=== PATIENT | female | born 1980 | race African-American/Black ===

== ENCOUNTER 2016-09-10 00:10 | Inpatient (IN) | payer MEDICAID ==
[~2016-09-10] VITALS: Ht 160 cm; Wt 68.8 kg
[2016-09-10] VITALS (16 sets, daily range): BP systolic 90–144; BP diastolic 50–85; PULSE 74–97; RESP 15–18; TEMP 98.1–99; O2SAT 97–100
[~2016-09-10 00:10] MED LIST: FERR324T4 PO; FOLI1 PO
[2016-09-10 01:32] LABS: MEAN CORPUSCULAR HGB CONC 28.6 % (32.0-36.0)
[2016-09-10 01:54] LABS: AUTOMATED NEUTROPHIL # 3.7 TH/MM3 (1.8-7.7); BASOPHIL % 0.4 % (0.0-2.0); EOSINOPHIL # 0.5 TH/MM3 (0-0.4); EOSINOPHIL % 7.5 % (0.0-4.0); LYMPH % 32.1 % (9.0-44.0); LYMPHOCYTE # 2.4 TH/MM3 (1.0-4.8); MEAN CELL VOLUME 56.8 FL (80.0-100.0); MEAN CORPUSCULAR HEMOGLOBIN 16.3 PG (27.0-34.0); PLATELET COUNT 565 TH/MM3 (150-450); RED BLOOD COUNT 2.99 MIL/MM3 (4.00-5.30); WHITE BLOOD COUNT 7.3 TH/MM3 (4.0-11.0)
--- NOTE | 2016-09-10 01:56 | PD ---
HPI Chief Complaint: General Weakness Time Seen by Provider: 01:13 Travel History International Travel<30 days: No Contact w/Intl Traveler<30days: No Traveled to known affect area: No History of Present Illness HPI 36-year-old female complains of generalized malaise and weakness and lightheadedness. Patient states that the symptoms started 2 days ago and got worse tonight. Patient has history of recurrent anemia from menorrhagia and uterine fibroids. Patient was referred to [facility] NURSE however has not had surgery done for vaginal bleeding problem. Patient was admitted in the past for blood transfusion secondary to anemia. The last admission for transfusion was 2 months ago at [facility]. [facility] Past Medical History Anemia: Yes Cancer: No Cardiovascular Problems: No Diminished Hearing: No Endocrine: No Genitourinary: No Immune Disorder: No Musculoskeletal: No Neurologic: No Psychiatric: No Reproductive: Yes (Menorrhagia) Respiratory: No Immunizations Current: Yes Tubal Ligation: Yes Past Surgical History Section: Yes (X3) Family History Family Hypercholesterolemia: Yes Social History Alcohol Use: No Tobacco Use: Yes (5 cigs a day) Substance Use: Yes (Marijuana) Allergies-Medications (Allergen,Severity, Reaction): Coded Allergies: Tramadol (Verified Allergy, Severe, Nausea/Vomiting, 09/10/16) Reported Meds & Prescriptions Reported Meds & Active Scripts Active Reported Ferrous Sulfate 325 Mg Tab 325 Mg PO DAILY Medroxyprogesterone Acetate 10 Mg Tab 10 Mg PO DAILY Start day 21 Review of Systems General / Constitutional: No: Fever Eyes: No: Visual changes HENT: No: Headaches Cardiovascular: No: Chest Pain or Discomfort Respiratory: No: Shortness of Breath Gastrointestinal: No: Abdominal Pain Genitourinary: Positive: Vaginal Bleeding, No: Dysuria Musculoskeletal: No: Pain Skin: No Rash Neurologic: No: Weakness Psychiatric: No: Depression Endocrine: No: Polydipsia Hematologic/Lymphatic: No: Easy Bruising Physical Exam Narrative GENERAL: Well-nourished, well-developed patient. SKIN: Warm and dry. HEAD: Normocephalic. EYES: No scleral icterus. No injection or drainage. NECK: Supple, trachea midline. No JVD or lymphadenopathy. CARDIOVASCULAR: Regular rate and rhythm without murmurs, gallops, or rubs. RESPIRATORY: Breath sounds equal bilaterally. No accessory muscle use. GASTROINTESTINAL: Abdomen soft, nondistended. Patient has mild tenderness to palpation lower abdomen. No rebound tenderness. MUSCULOSKELETAL: No cyanosis, or edema. BACK: Nontender without obvious deformity. No CVA tenderness. Neurologic exam normal. Data Data Last Documented VS Vital Signs Date Time Temp Pulse Resp B/P Pulse Ox O2 Delivery O2 Flow Rate FiO2 09/10/16 02:05 78 16 90/50 100 Room Air 09/10/16 00:11 98.1 Orders Complete Blood Count With Diff (09/10/16 01:30) Comprehensive Metabolic Panel (09/10/16 01:30) Prothrombin Time / Inr (Pt) (09/10/16 01:30) Act Partial Throm Time (Ptt) (09/10/16 01:30) Chest, Single Ap (09/10/16 01:30) Iv Access Insert/Monitor (09/10/16 01:30) Ecg Monitoring (09/10/16 01:30) Oximetry (09/10/16 01:30) Type And Screen (09/10/16 01:30) Ed Urine Pregnancytest Poc (09/10/16 01:30) Red Blood Cells (Rbc) (09/10/16 02:09) Blood Product Administration .UPON TRANSFUSION (09/10/16 02:09) Sodium Chlor 0.9% 250 Ml Inj (Ns 250 Ml (09/10/16 02:15) Furosemide Inj (Lasix Inj) (09/10/16 02:15) Labs Laboratory Tests Test 09/10/16 01:40 White Blood Count 7.3 TH/MM3 Red Blood Count 2.99 MIL/MM3 Hemoglobin 4.9 GM/DL Hematocrit 17.0 % Mean Corpuscular Volume 56.8 FL Mean Corpuscular Hemoglobin 16.3 PG Mean Corpuscular Hemoglobin 28.6 % Concent Red Cell Distribution Width 21.0 % Platelet Count 565 TH/MM3 Mean Platelet Volume 6.8 FL Neutrophils (%) (Auto) 50.0 % Lymphocytes (%) (Auto) 32.1 % Monocytes (%) (Auto) 10.0 % Eosinophils (%) (Auto) 7.5 % Basophils (%) (Auto) 0.4 % Neutrophils # (Auto) 3.7 TH/MM3 Lymphocytes # (Auto) 2.4 TH/MM3 Monocytes # (Auto) 0.7 TH/MM3 Eosinophils # (Auto) 0.5 TH/MM3 Basophils # (Auto) 0.0 TH/MM3 CBC Comment AUTO DIFF Differential Comment AUTO DIFF CONFIRMED Target Cells 1+ Ovalocytes 1+ Prothrombin Time 11.6 SEC Prothromb Time International 1.0 RATIO Ratio Activated Partial 24.0 SEC Thromboplast Time Sodium Level 139 MEQ/L Potassium Level 3.9 MEQ/L Chloride Level 106 MEQ/L Carbon Dioxide Level 25.5 MEQ/L Anion Gap 8 MEQ/L Blood Urea Nitrogen 9 MG/DL Creatinine 0.62 MG/DL Estimat Glomerular Filtration 133 ML/MIN Rate Random Glucose 96 MG/DL Calcium Level 8.3 MG/DL Total Bilirubin 0.2 MG/DL Aspartate Amino Transf 10 U/L (AST/SGOT) Alanine Aminotransferase 8 U/L (ALT/SGPT) Alkaline Phosphatase 61 U/L Total Protein 6.9 GM/DL Albumin 2.8 GM/DL [facility] Medical Decision Making Medical Screen Exam Complete: Yes Emergency Medical Condition: Yes Interpretation(s) 3:37 AM. Last Impressions Chest X-Ray 09/10/16 0130 Signed Impressions: Service Date/Time: August 01:57 - CONCLUSION: No acute disease. Sanjay Guerra MD 3:37 AM. CBC WBC 7.3. Hemoglobin 4.9. Hematocrit 17.0. CMP within normal limit. Calcium 8.3. Differential Diagnosis Differential diagnoses include anemia, viral syndrome, electrolyte imbalance, dehydration. Narrative Course 36-year-old female with lightheadedness, generalized malaise and weakness. History of anemia from menorrhagia and uterine fibroid. Patient needed transfusions in the past. Type and cross 4 units of blood and transfuse when ready. Diagnosis Primary Impression: Anemia Qualified Code: D50.0 - Iron deficiency anemia due to chronic blood loss Additional Impressions: Menorrhagia Qualified Code: N92.1 - Menorrhagia with irregular cycle Uterine fibroid Qualified Code: D25.9 - Uterine leiomyoma, unspecified location Admitting Information Admitting Physician Requests: Admit Holland Salazar MD Sep 10, 2016 01:56 Holland Salazar MD Sep 10, 2016 01:56
[2016-09-10 01:58] LABS: HEMO FLAGS AUTO DIFF
[2016-09-10 02:02] LABS: PROTHROMBIN TIME - PATIENT 11.6 SEC (9.8-11.6)
--- NOTE | 2016-09-10 02:06 | RADRPT ---
EXAM DATE/TIME: 09/10/2016 01:57 [facility] COMPARISON: CHEST SINGLE AP, September 20, 2015, 23:54. INDICATIONS : Shortness of breath. MEDICAL HISTORY : None. SURGICAL HISTORY : None. ENCOUNTER: Initial ACUITY: 1 day PAIN SCORE: 0/10 LOCATION: Bilateral chest FINDINGS: A single view of the chest demonstrates the lungs to be symmetrically aerated without evidence of mas s, infiltrate or effusion. The cardiomediastinal contours are unremarkable. Osseous structures are intact. CONCLUSION: No acute disease. Sanjay Guerra MD on September 10, 2016 at 2:04 Board Certified Radiologist. This report was verified electronically.
[2016-09-10] MEDS ORDERED: MEDR10TA7 PO (02:09)
[2016-09-10] MEDS ORDERED: FERR325T PO (02:09)
[2016-09-10 02:12] LABS: ALT (GPT) 8 U/L (10-53); ANION GAP 8 MEQ/L (5-15); AST (GOT) 10 U/L (15-37); BICARBONATE 25.5 MEQ/L (21.0-32.0); BLOOD UREA NITROGEN 9 MG/DL (7-18); CHLORIDE 106 MEQ/L (98-107); GLOMERULAR FILTRATION RATE 133 ML/MIN (>89); POTASSIUM 3.9 MEQ/L (3.5-5.1); SODIUM (NA) 139 MEQ/L (136-145)
[2016-09-10 02:14] LABS: ALKALINE PHOSPHATASE 61 U/L (45-117); TOTAL BILIRUBIN ADULT 0.2 MG/DL (0.2-1.0)
[2016-09-10] MEDS ORDERED: SODIUM CHLOR 0.9% 250 ML INJ 250 ML IV ONE (02:15)
[2016-09-10] MEDS ORDERED: FUROSEMIDE 20 MG/2 ML VIAL IV PUSH ONE ×2 (02:15→10:45)
[2016-09-10 02:26] LABS: OVALOCYTES 1+ (NORMAL); SCAN/DIFF AUTO DIFF CONFIRMED; TARGET CELLS 1+ (NORMAL)
[2016-09-10] MEDS ORDERED: SODIUM CHLORIDE 0.9% FLUSH 10 ML FLUSH IV FLUSH PRN (04:00)
[2016-09-10] MEDS ORDERED: NALOXONE HCL 0.4 MG/ML AMP IV PRN (04:00)
[2016-09-10] MEDS: SODIUM CHLORIDE 0.9% FLUSH 10 ML FLUSH IV FLUSH SCH ×2 (09:00→19:58)
--- NOTE | 2016-09-10 10:45 | HHI.HP ---
[facility] No Primary Care Physician Admission Diagnosis anemia. Menorrhagia. Uterine fibroid. Diagnoses: Chief Complaint: Dizziness, fatigue Travel History International Travel<30 Days: No Contact w/Intl Traveler <30 Da: No Traveled to Known Affected Are: No History of Present Illness Physical therapy 6-year-old female past medical history significant for recurrent anemia from menorrhagia and uterine fibroids. She presents with generalized malaise, fatigue and weakness as well as lightheadedness which started approximately 2 days ago and got worst last night. The patient states that she has had menorrhagia for the past year, she was started on control pills by an outside [facility] in [facility]. Initially she would have intermittent menorrhagia, however per the past month she has had continues vaginal bleed with clots. The patient states that the DANCE CRITIC doctor that was seen here in [facility] and was going to perform surgery finally did not because she did not take her insurance. Patient has been admitted in the past for blood transfusion secondary to anemia, last admission for packed red blood cells transfusions was 2 months ago at the floor the hospital. The patient otherwise denies chest pain, shortness of breath, fevers, chills. The patient has being evaluated emergency department found to have a hemoglobin of 4.9 and so far has been confused 2 units of blood for blood cells from 4 that have been ordered. Review of Systems As per history of present illness, other systems reviewed by me and negative Past Family Social History Past Medical History 1. Uterine fibroids. 2. Posttraumatic anemia. 3. Menometrorrhagia. Past Surgical History 1. C-sections 3. Reported Medications Ferrous Sulfate 325 Mg Tab 325 Mg PO DAILY Medroxyprogesterone Acetate 10 Mg Tab 10 Mg PO DAILY Start day 21 Allergies: Coded Allergies: Tramadol (Verified Allergy, Severe, Nausea/Vomiting, 09/10/16) Active Ordered Medications Current Medications Medications (Trade) Dose Ordered Sig/Bina Route Start Time Stop Time Status Last Admin (NS 250 ml Inj) 250 ml @ 15 mls/hr ONCE ONCE IV 09/10/16 02:15 09/10/16 18:54 09/10/16 06:23 (NS Flush) 2 ml UNSCH PRN IV FLUSH 09/10/16 04:00 (NS Flush) 2 ml BID IV FLUSH 09/10/16 09:00 (Narcan Inj) 0.4 mg UNSCH PRN IV 09/10/16 04:00 Family History Other has hypertension. There is no family history of diabetes or early CAD. Social History Patient smokes approximately 1 pack every 3 days. Denies alcohol intake. Denies illicit drug use currently. Patient states she used to smoke marijuana but has not done it in the last 3 months. Physical Exam Vital Signs Vital Signs Date Time Temp Pulse Resp B/P Pulse Ox O2 Delivery O2 Flow Rate FiO2 09/10/16 10:32 98.5 79 15 123/63 100 Room Air 09/10/16 08:49 98.5 76 16 110/66 100 09/10/16 08:49 98.5 76 16 110/66 100 Room Air 09/10/16 08:31 98.3 80 16 104/65 100 09/10/16 07:23 98.4 79 16 108/63 99 Room Air 09/10/16 07:23 16 99 Room Air 09/10/16 06:30 98.7 80 16 101/59 99 Room Air 09/10/16 06:17 84 16 106/63 100 Room Air 09/10/16 06:15 98.7 84 16 106/63 100 Room Air 09/10/16 02:05 78 16 90/50 100 Room Air 09/10/16 02:05 18 09/10/16 02:05 Room Air 09/10/16 00:11 98.1 97 15 144/85 100 Room Air Physical Exam GENERAL: This is a well-nourished, well-developed patient, in no apparent distress. SKIN: No rashes, ecchymoses or lesions. Cool and dry. HEAD: Atraumatic. Normocephalic. No temporal or scalp tenderness. EYES: Pupils equal round and reactive. Extraocular motions intact. No scleral icterus. No injection or drainage. Pale conjunctiva. ENT: Nose without bleeding, purulent drainage or septal hematoma. Throat without erythema, tonsillar hypertrophy or exudate. Uvula midline. Airway patent. NECK: Trachea midline. No JVD or lymphadenopathy. Supple, nontender, no meningeal signs. CARDIOVASCULAR: Regular rate and rhythm without murmurs, gallops, or rubs. RESPIRATORY: Clear to auscultation. Breath sounds equal bilaterally. No wheezes , rales, or rhonchi. GASTROINTESTINAL: Abdomen soft, non-tender, nondistended. No hepato-splenomegaly , or palpable masses. No guarding. MUSCULOSKELETAL: Extremities without clubbing, cyanosis, or edema. No joint tenderness, effusion, or edema noted. No calf tenderness. Negative Homans sign bilaterally. NEUROLOGICAL: Awake and alert. Cranial nerves II through XII intact. Motor and sensory grossly within normal limits. Five out of 5 muscle strength in all muscle groups. Normal speech. Laboratory Laboratory Tests Test 09/10/16 09/10/16 01:40 02:09 White Blood Count 7.3 Red Blood Count 2.99 Hemoglobin 4.9 Hematocrit 17.0 Mean Corpuscular Volume 56.8 Mean Corpuscular Hemoglobin 16.3 Mean Corpuscular Hemoglobin 28.6 Concent Red Cell Distribution Width 21.0 Platelet Count 565 Mean Platelet Volume 6.8 Neutrophils (%) (Auto) 50.0 Lymphocytes (%) (Auto) 32.1 Monocytes (%) (Auto) 10.0 Eosinophils (%) (Auto) 7.5 Basophils (%) (Auto) 0.4 Neutrophils # (Auto) 3.7 Lymphocytes # (Auto) 2.4 Monocytes # (Auto) 0.7 Eosinophils # (Auto) 0.5 Basophils # (Auto) 0.0 CBC Comment AUTO DIFF Differential Comment AUTO DIFF CONFIRMED Target Cells 1+ Ovalocytes 1+ Prothrombin Time 11.6 Prothromb Time International 1.0 Ratio Activated Partial 24.0 Thromboplast Time Sodium Level 139 Potassium Level 3.9 Chloride Level 106 Carbon Dioxide Level 25.5 Anion Gap 8 Blood Urea Nitrogen 9 Creatinine 0.62 Estimat Glomerular Filtration 133 Rate Random Glucose 96 Calcium Level 8.3 Total Bilirubin 0.2 Aspartate Amino Transf 10 (AST/SGOT) Alanine Aminotransferase 8 (ALT/SGPT) Alkaline Phosphatase 61 Total Protein 6.9 Albumin 2.8 Blood Type A POSITIVE Antibody Screen POSITIVE Crossmatch Leukocyte-Reduced Red Blood Cells Blood Bank Comment Result Diagram: 09/10/1613909/10/16139 Imaging Last Impressions Chest X-Ray 09/10/16129 Signed Impressions: Service Date/Time: August 01:57 - CONCLUSION: No acute disease. Sanjay Gurera MD Reviewed by me Assessment and Plan Problem List: (1) Severe anemia ICD Code: D64.9 Status: Acute Plan: 36-year-old female with past medical history of uterine fibroids, menometrorrhagia presents to [facility] complaining of fatigue, dizziness exertion, weakness and lightheadedness and found to have a hemoglobin of 4.9. Admit the patient to the medical floor. Transfuse a total of 4 units of packed blood cells. Monitor H&H post transfusional and every 6 hours after that. Transfuse for hemoglobin less than 7 or symptomatically anemia. Goal hemoglobin more than 9. (2) Uterine fibroid ICD Code: D25.9 Status: Acute Plan: [facility] consult. The patient most likely will need a total hysterectomy. The patient has had a CT scan and this institution which showed a 5.72.7 cm right adnexal mass, probably a mildly complex ovarian cyst. Diffusely enlarged uterus with some calcifications characteristic of uterine fibroids. I will her pelvic ultrasound to better assess the right adnexal mass. (3) Menometrorrhagia ICD Code: N92.1 Status: Acute Plan: As above. Assessment and Plan GI prophylaxis: PPI DVT prophylaxis: SCDs. No chemotherapy prophylaxis given active GI bleed. Code Status Full code Discussed Condition With Patient. Physician Certification 2 Midnight Certification Type: Admission for Inpatient Services Order for Inpatient Services The services are ordered in accordance with Medicare regulations or non- Medicare payer requirements, as applicable. In the case of services not specified as inpatient-only, they are appropriately provided as inpatient services in accordance with the 2-midnight benchmark. Estimated LOS (days): 2 days is the estimated time the patient will need to remain in the hospital, assuming treatment plan goals are met and no additional complications. Post-Hospital Plan: Not yet determined Problem Qualifiers (1) Uterine fibroid: Qualified Code: D25.9 - Uterine leiomyoma, unspecified location Alex Branch MD Sep 10, 2016 10:45
[2016-09-10] MEDS: PANTOPRAZOLE SOD 40 MG DELAYED RELEASE TAB PO SCH (11:20)
--- NOTE | 2016-09-10 14:12 | PD.CONS ---
HPI Chief Complaint Heavy bleeding and fatigue Date Seen: Sep 10, 2016 Travel History International Travel<30 Days: No Contact w/Intl Traveler<30Days: No Known Affected Area: No History of Present Illness HPI with history of menorrhagia and uterine fibroids presented to ED with c/o heavy bleeding and fatigue. Patient reports irregular bleeding beginning last month. Reports occasional clots- quarter size. Patient last seen by [facility] in 2015. Reports history of previous transfusion. Reports taking OCPs last year, then planned hysterectomy. Procedure cancelled due to insurance reasons per patient. Reports not following up after that cancellation. She reports another visit to an outside ED secondary to similar complaints and was prescribed Provera 10mg daily. She denies urinary or bowel problems. Para: 3 : 3 History Past Medical History Narrative Medical Anemia Obstetric History Obstetric History FT C/S x 3 LBB 2009, BBB 7# 9oz Past Surgical History Narrative Surgical C/S x 3, BTL Family History Narrative Family History HTN. Denies history of [facility] cancers or diseases. No history of breast CA. Social History Alcohol Use: No Tobacco Use: Yes (1ppd over 3 days) Substance Abuse: No Allergies-Medications (Allergen,Severity, Reaction): Coded Allergies: Tramadol (Verified Allergy, Severe, Nausea/Vomiting, 09/10/16) Home Meds Reported Medications Ferrous Sulfate 325 Mg [id number] Mg PO DAILY #30 TAB Ref 0 09/10/16 Medroxyprogesterone Acetate 10 Mg Tab10 Mg PO DAILY #5 TAB Ref 0 Start day 21 09/10/16 Discontinued Reported Medications Folic Acid (Folate 1 Mg Tab)1 Mg Tab1 Mg PO DAILY 05/10/15 Ferrous Sulfate 325 Mg [id number] Mg PO TID 05/10/15 Physical Exam Vital Signs Date Time Temp Pulse Resp B/P Pulse Ox O2 Delivery O2 Flow Rate FiO2 09/10/16 12:00 98.2 80 16 109/70 100 Room Air 09/10/16 11:40 98.4 80 16 111/68 100 Room Air 09/10/16 10:32 98.5 79 15 123/63 100 Room Air 09/10/16 08:49 98.5 76 16 110/66 100 09/10/16 08:49 98.5 76 16 110/66 100 Room Air 09/10/16 08:31 98.3 80 16 104/65 100 09/10/16 07:23 98.4 79 16 108/63 99 Room Air 09/10/16 07:23 16 99 Room Air 09/10/16 06:30 98.7 80 16 101/59 99 Room Air 09/10/16 06:17 84 16 106/63 100 Room Air 09/10/16 06:15 98.7 84 16 106/63 100 Room Air 09/10/16 02:05 78 16 90/50 100 Room Air 09/10/16 02:05 18 09/10/16 02:05 Room Air 09/10/16 00:11 98.1 97 15 144/85 100 Room Air Narrative GENERAL: Well-nourished, well-developed patient. SKIN: Warm and dry. HEAD: Normocephalic and atraumatic. EYES: No scleral icterus. No injection or drainage. ENT: No nasal drainage noted. Mucous membranes pink. Airway patent. NECK: Supple, trachea midline. No JVD. CARDIOVASCULAR: Regular rate and rhythm without murmurs, gallops, or rubs. RESPIRATORY: Breath sounds equal bilaterally. No accessory muscle use. BREASTS: Bilateral exam showed no masses , no retractions, no nipple discharge. ABDOMEN/GI: Abdomen soft, non-tender, bowel sounds present, no rebound, no guarding Gravid to [-] weeks size Fundal Height: [fundus palpated to 14-16 week size] GENITOURINARY: External Genitalia: intact and normal in appearance BUS glands: [-] Cervix: [scant blood from os, blood in vault, no clots] Dilatation: [closed] Effacement: [thick] Station: [-] Presentation: [-] Membranes: [intact or ruptured] Uterine Contractions: [-] FHT's: Category: [-] Baseline: [-] Reactive: [-] Variability: [-] Decels: [-] EXTREMITIES: No cyanosis or edema. BACK: Nontender without obvious deformity. No CVA tenderness. NEUROLOGICAL: Awake and alert. Motor and sensory grossly within normal limits. Five out of 5 muscle strength in all muscle groups. Normal speech. Data Data Orders Complete Blood Count With Diff (09/10/16 01:30) Comprehensive Metabolic Panel (09/10/16 01:30) Prothrombin Time / Inr (Pt) (09/10/16 01:30) Act Partial Throm Time (Ptt) (09/10/16 01:30) Chest, Single Ap (09/10/16 01:30) Iv Access Insert/Monitor (09/10/16 01:30) Ecg Monitoring (09/10/16 01:30) Oximetry (09/10/16 01:30) Type And Screen (09/10/16 01:30) Ed Urine Pregnancytest Poc (09/10/16 01:30) Red Blood Cells (Rbc) (09/10/16 02:09) Blood Product Administration .UPON TRANSFUSION (09/10/16 02:09) Sodium Chlor 0.9% 250 Ml Inj (Ns 250 Ml (09/10/16 02:15) Furosemide Inj (Lasix Inj) (09/10/16 02:15) Admit To Inpatient (09/10/16 ) Vital Signs (Adult) Q4H (09/10/16 03:50) Activity Oob Ad Ro (09/10/16 03:50) Cell Preparer / Telemetry .CONTINUOUS (09/10/16 03:50) Sodium Chloride 0.9% Flush (Ns Flush) (09/10/16 04:00) Sodium Chloride 0.9% Flush (Ns Flush) (09/10/16 09:00) Case Management Consult (09/10/16 03:50) Scd Bilateral/Knee High UMESH.BID (09/10/16 03:50) Naloxone Inj (Narcan Inj) (09/10/16 04:00) Inpatient Certification (09/10/16 ) Consult Gynecology (09/10/16 ) Admit Order (Ed Use Only) (09/10/16 04:25) Physician Name Changes (09/10/16 ) Furosemide Inj (Lasix Inj) (09/10/16 10:45) Us Pelvis Comp [facility] Compliance/Non-Preg (09/10/16 ) Pantoprazole (Protonix) (09/10/16 10:45) Diet Regular Basic (09/10/16 Lunch) Hemoglobin (Hgb) (09/10/16 16:00) Hemoglobin (Hgb) (09/11/16 16:00) (Hub Use Only)Inp Phy Cons/Ref (09/10/16 ) Labs Laboratory Tests Test 09/10/16 09/10/16 01:40 02:09 White Blood Count 7.3 Red Blood Count 2.99 Hemoglobin 4.9 Hematocrit 17.0 Mean Corpuscular Volume 56.8 Mean Corpuscular Hemoglobin 16.3 Mean Corpuscular Hemoglobin 28.6 Concent Red Cell Distribution Width 21.0 Platelet Count 565 Mean Platelet Volume 6.8 Neutrophils (%) (Auto) 50.0 Lymphocytes (%) (Auto) 32.1 Monocytes (%) (Auto) 10.0 Eosinophils (%) (Auto) 7.5 Basophils (%) (Auto) 0.4 Neutrophils # (Auto) 3.7 Lymphocytes # (Auto) 2.4 Monocytes # (Auto) 0.7 Eosinophils # (Auto) 0.5 Basophils # (Auto) 0.0 CBC Comment AUTO DIFF Differential Comment AUTO DIFF CONFIRMED Target Cells 1+ Ovalocytes 1+ Prothrombin Time 11.6 Prothromb Time International 1.0 Ratio Activated Partial 24.0 Thromboplast Time Sodium Level 139 Potassium Level 3.9 Chloride Level 106 Carbon Dioxide Level 25.5 Anion Gap 8 Blood Urea Nitrogen 9 Creatinine 0.62 Estimat Glomerular Filtration 133 Rate Random Glucose 96 Calcium Level 8.3 Total Bilirubin 0.2 Aspartate Amino Transf 10 (AST/SGOT) Alanine Aminotransferase 8 (ALT/SGPT) Alkaline Phosphatase 61 Total Protein 6.9 Albumin 2.8 Blood Type A POSITIVE Antibody Screen POSITIVE Crossmatch Leukocyte-Reduced Red Blood Cells Blood Bank Comment MDM Interpretation(s) 36 yo with history of menorrhagia, anemia, and fibroids. Plan Continue transfusion. US completed, results pending, will f/u. Consider Premarin 25mg IV. Importance of f/u d/w patient. October f/u with Dr. Sol as outpatient for [facility] f/ u. All questions answered. Admitting diagnosis: anemia. Menorrhagia. Uterine fibroid. Renae Aguilar MD Sep 10, 2016 14:12
--- NOTE | 2016-09-10 15:59 | RADRPT ---
EXAM DATE/TIME: 09/10/2016 11:40 [facility] COMPARISON: CT ABDOMEN & PELVIS W/O CONTRAST, September 06, 2015, 20:48. INDICATIONS : Vaginal bleeding. MEDICAL HISTORY : Menorrhagia. Anemia. Blood transfusions. SURGICAL HISTORY : section. Tubal ligation. ENCOUNTER: Initial ACUITY: 1 month PAIN SCORE: 6/10 LOCATION: Bilateral pelvis MEASUREMENTS: UTERUS: 16.5 x 12.7 x 10.1 cm ENDOMETRIAL STRIPE: 15 mm RIGHT OVARY: 4.2 x 1.8 x 1.9 cm LEFT OVARY: 3.7 x 3.5 x 1.6 cm FINDINGS: UTERUS: Uterus is markedly enlarged with a height of 16.5 cm. Multiple mass lesions are identified, the large st measuring 7.3 x 6.9 x 6.3 cm. Findings are characteristic of a fibroid uterus. Endometrium is some what thickened at 15 mm with complex endometrial fluid. Cystic area in the cervical region measures 4 .0 x 4.4 x 1.9 cm and appears to decompress in the post void images RIGHT OVARY: Ovary contains no mass or significant cystic lesion. LEFT OVARY: Ovary contains no mass or significant cystic lesion. MISCELLANEOUS: No free fluid. CONCLUSION: 1. Fibroid uterus. 2. Right para-midline cystic area measuring 4.0 x 4.4 x 1.9 cm in the vaginal/cervical region appears to decompress on the postvoid images and therefore, may represent a prominent bladder diverticulum. Post contrast CT images may be useful for further characterization if clinically warranted. Buster Reyna MD on September 10, 2016 at 15:42 Board Certified Radiologist. This report was verified electronically.
[2016-09-10] MEDS: ACETAMINOPHEN 325 MG TAB PO PRN (23:23)
[2016-09-11] VITALS (7 sets, daily range): BP systolic 112–153; BP diastolic 59–89; PULSE 67–79; RESP 16–18; TEMP 98.3–99; O2SAT 97–100
--- NOTE | 2016-09-11 00:17 | RADRPT ---
EXAM DATE/TIME: 09/10/2016 21:05 [facility] COMPARISON: No previous studies available for comparison. INDICATIONS : Left leg pain. MEDICAL HISTORY : Menorrhagia. Occasional substance use. Anemia. SURGICAL HISTORY : Tubal ligation. section. Blood transfusions. ENCOUNTER: Initial ACUITY: 2 day PAIN SCORE: 8/10 LOCATION: Left leg. TECHNIQUE: Venous ultrasound of the leg was performed from the inguinal ligament to the proximal calf. Real-christiana e, color Doppler and spectral tracing, compression and augmentation techniques were used. FINDINGS: There is normal compressibility of the deep venous system from the inguinal region to the proximal ca lf. No echogenic clot is seen in the lumen of the common femoral, femoral, popliteal, and posterior tibial veins. There is a normal response of the venous system to proximal and distal augmentation an d respiration. CONCLUSION: Normal examination. Misael Allen Jr., MD on September 11, 2016 at 0:15 Board Certified Radiologist. This report was verified electronically.
[2016-09-11] MEDS: PANTOPRAZOLE SOD 40 MG DELAYED RELEASE TAB PO SCH (09:41)
[2016-09-11] MEDS: SODIUM CHLORIDE 0.9% FLUSH 10 ML FLUSH IV FLUSH SCH ×2 (09:42→20:37)
[2016-09-11 10:55] LABS: AUTOMATED NEUTROPHIL # 4.5 TH/MM3 (1.8-7.7); BASOPHIL # 0.1 TH/MM3 (0-0.2); BASOPHIL % 0.7 % (0.0-2.0); EOSINOPHIL # 0.6 TH/MM3 (0-0.4); EOSINOPHIL % 7.4 % (0.0-4.0); HEMATOCRIT 30.4 % (35.0-46.0); LYMPH % 24.2 % (9.0-44.0); LYMPHOCYTE # 1.9 TH/MM3 (1.0-4.8); MEAN CELL VOLUME 67.4 FL (80.0-100.0); MEAN CORPUSCULAR HEMOGLOBIN 21.8 PG (27.0-34.0); MEAN CORPUSCULAR HGB CONC 32.4 % (32.0-36.0); MONO % 9.9 % (0.0-8.0); NEUT % 57.8 % (16.0-70.0); PLATELET COUNT 460 TH/MM3 (150-450); RED BLOOD COUNT 4.52 MIL/MM3 (4.00-5.30); RED CELL DISTRIBUTION WIDTH 30.7 % (11.6-17.2); WHITE BLOOD COUNT 7.7 TH/MM3 (4.0-11.0)
[2016-09-11 10:57] LABS: HEMO FLAGS AUTO DIFF
[2016-09-11 11:08] LABS: ALT (GPT) 10 U/L (10-53); ANION GAP 6 MEQ/L (5-15); AST (GOT) 13 U/L (15-37); BICARBONATE 27.9 MEQ/L (21.0-32.0); BLOOD UREA NITROGEN 9 MG/DL (7-18); CHLORIDE 104 MEQ/L (98-107); GLOMERULAR FILTRATION RATE 141 ML/MIN (>89); POTASSIUM 3.7 MEQ/L (3.5-5.1); SODIUM (NA) 138 MEQ/L (136-145)
[2016-09-11 11:10] LABS: ALKALINE PHOSPHATASE 64 U/L (45-117); TOTAL BILIRUBIN ADULT 0.5 MG/DL (0.2-1.0)
[2016-09-11 11:50] LABS: SCAN/DIFF AUTO DIFF CONFIRMED
[2016-09-11] MEDS ORDERED: IOHEXOL 350 MG/ML 10 ML VIAL (for RAD DIAG) IV ONE (16:11)
[2016-09-11] MEDS: ACETAMINOPHEN 325 MG TAB PO PRN (17:54)
--- NOTE | 2016-09-11 18:09 | RADRPT ---
EXAM DATE/TIME: 09/11/2016 15:54 [place] COMPARISON: US PELVIS - COMPLETE (HAND OUTSIDE CUTTER,NON-PREG), September 10, 2016, 11:40. INDICATIONS : Evaluate cystic area in bladder. IV CONTRAST: 75 cc Omnipaque 350 (iohexol) IV ORAL CONTRAST: No oral contrast ingested. RADIATION DOSE: 17.37 CTDIvol (mGy) MEDICAL HISTORY : Anemia. SURGICAL HISTORY : Tubal ligation. section. ENCOUNTER: Subsequent ACUITY: 1 day PAIN SCALE: 2/10 LOCATION: Bilateral lower quadrant TECHNIQUE: Volumetric scanning of the pelvis was performed. Using automated exposure control and adjustment of t he mA and/or kV according to patient size, radiation dose was kept as low as reasonably achievable to obtain optimal diagnostic quality images. FINDINGS: BOWEL/MESENTERY: The visualized small and large bowel demonstrate no acute abnormality. There is no free fluid. BLADDER: The cystic areas identified near the cervix/vagina on the previous ultrasound are actually diverticul a off of the urinary bladder. Urinary bladder is markedly compressed by the fibroid uterus. RETROPERITONEUM: There is no aneurysm or lymphadenopathy. REPRODUCTIVE: Markedly enlarged, fibroid uterus. INGUINAL: There is no lymphadenopathy or hernia. MUSCULOSKELETAL: Within normal limits for patient age. CONCLUSION: 1. Markedly enlarged fibroid uterus. 2. Delayed images confirm that the transient cystic structures down by the vagina/cervix are either w ings or diverticula off the urinary bladder. The bladder itself is markedly compressed by the enlarge d uterus Buster Reyna MD on September 11, 2016 at 17:59 Board Certified Radiologist. This report was verified electronically.
[2016-09-11] MEDS ORDERED: KETOROLAC TROMETHAMINE 30 MG/ML (IVP) VIAL IV PUSH ONE (19:45)
--- NOTE | 2016-09-11 21:54 | HHI.PR ---
Subjective Remarks Patient seen earlier at 10:15 AM. Patient states that she feels better. Patient states she is still bleeding however slightly better than previous days. Hemoglobin 8.5. Denies chest pain or shortness of breath Stable vital signs Objective Vitals Vital Signs Date Time Temp Pulse Resp B/P Pulse Ox O2 Delivery O2 Flow Rate FiO2 09/11/16 20:12 98.4 73 16 120/62 99 09/11/16 16:00 98.8 79 18 141/89 97 09/11/16 12:00 99.0 75 18 153/82 100 09/11/16 08:00 98.5 71 18 123/60 100 09/11/16 04:05 98.3 67 16 121/63 99 09/11/16 00:00 98.9 77 16 112/59 100 I/O 09/10/16 09/10/16 09/10/16 09/11/16 09/11/16 09/11/16 07:00 15:00 23:00 07:00 15:00 23:00 Intake Total 825 ml 4803 ml 480 ml 480 ml Balance 825 ml 4803 ml 480 ml 480 ml Intake Oral 4803 ml 480 ml 480 ml Packed Cells 825 ml # Voids 4 4 2 # Bowel Movements 1 0 0 Result Diagram: 09/11/16 1614 09/11/16 1033 Imaging Last Impressions Pelvis CT 09/11/16 0000 Signed Impressions: Service Date/Time: Sunday, September 11, 2016 15:54 - CONCLUSION: 1. Markedly enlarged fibroid uterus. 2. Delayed images confirm that the transient cystic structures down by the vagina/cervix are either wings or diverticula off the urinary bladder. The bladder itself is markedly compressed by the enlarged uterus Buster Reyna MD Chest X-Ray 09/10/16 0130 Signed Impressions: Service Date/Time: August 01:57 - CONCLUSION: No acute disease. Sanjay Guerra MD Pelvis Ultrasound 09/10/16 0000 Signed Impressions: Service Date/Time: August 11:40 - CONCLUSION: 1. Fibroid uterus. 2. Right para-midline cystic area measuring 4.0 x 4.4 x 1.9 cm in the vaginal/cervical region appears to decompress on the postvoid images and therefore, may represent a prominent bladder diverticulum. Post contrast CT images may be useful for further characterization if clinically warranted. Buster Reyna MD Lower Extremity Ultrasound 09/10/16 0000 Signed Impressions: Service Date/Time: August 21:05 - CONCLUSION: Normal examination. Misael Allen Jr., MD Objective Remarks GENERAL: This is a well-nourished, well-developed patient, in no apparent distress. SKIN: No rashes, ecchymoses or lesions. Cool and dry. HEAD: Atraumatic. Normocephalic. No temporal or scalp tenderness. EYES: Pupils equal round and reactive. Extraocular motions intact. No scleral icterus. No injection or drainage. Pale conjunctiva. ENT: Nose without bleeding, purulent drainage or septal hematoma. Throat without erythema, tonsillar hypertrophy or exudate. Uvula midline. Airway patent. NECK: Trachea midline. No JVD or lymphadenopathy. Supple, nontender, no meningeal signs. CARDIOVASCULAR: Regular rate and rhythm without murmurs, gallops, or rubs. RESPIRATORY: Clear to auscultation. Breath sounds equal bilaterally. No wheezes , rales, or rhonchi. GASTROINTESTINAL: Abdomen soft, non-tender, nondistended. No hepato-splenomegaly , or palpable masses. No guarding. MUSCULOSKELETAL: Extremities without clubbing, cyanosis, or edema. No joint tenderness, effusion, or edema noted. No calf tenderness. Negative Homans sign bilaterally. NEUROLOGICAL: Awake and alert. Cranial nerves II through XII intact. Motor and sensory grossly within normal limits. Five out of 5 muscle strength in all muscle groups. Normal speech. Procedures None Medications and IVs Current Medications Medications (Trade) Dose Ordered Sig/Bina Route Start Time Stop Time Status Last Admin (NS Flush) 2 ml UNSCH PRN IV FLUSH 09/10/16 04:00 (NS Flush) 2 ml BID IV FLUSH 09/10/16 09:00 09/11/16 20:37 (Narcan Inj) 0.4 mg UNSCH PRN IV 09/10/16 04:00 (Protonix) 40 mg DAILY PO 09/10/16 10:45 09/11/16 09:41 (Tylenol) 650 mg Q4H PRN PO 09/10/16 21:15 09/11/16 17:54 Urinary Catheter: No Vascular Central Line Catheter: No A/P Problem List: (1) Severe anemia ICD Code: D64.9 Status: Acute Plan: 36-year-old female with past medical history of uterine fibroids, menometrorrhagia presents to [facility] complaining of fatigue, dizziness exertion, weakness and lightheadedness and found to have a hemoglobin of 4.9. Patient was admitted to the medical floor and transfused a total of 4 units of packed red blood cells with hemoglobin response up to 9.8. Continue to monitor H&H and transfuse for hemoglobin less than 7 or symptomatic anemia. Clinical hemoglobin is more than 9. (2) Uterine fibroid ICD Code: D25.9 Status: Acute Plan: SENIOR SALES ASSOCIATE consult. The patient most likely will need a total hysterectomy. The patient has had a CT scan and this institution which showed a 5.72.7 cm right adnexal mass, probably a mildly complex ovarian cyst. Diffusely enlarged uterus with some calcifications characteristic of uterine fibroids. Pelvic ultrasound showed uterine fibroids and possible bladder diverticulum. CT of the pelvis with delayed images ordered to assess (3) Menometrorrhagia ICD Code: N92.1 Status: Acute Plan: Appreciate SHEETING PULLER consultation recommendations. The patient advised to follow-up as an outpatient. Assessment and Plan 3. DVT Prophylaxis: SCDs, no chemotherapy prophylaxis given active bleeding. GI prophylaxis: PPI. Discharge Planning Possible discharge in a.m. if hemoglobin remains stable and bleeding has subsided. Problem Qualifiers (1) Uterine fibroid: Qualified Code: D25.9 - Uterine leiomyoma, unspecified location Alex Branch MD Sep 11, 2016 21:54
[2016-09-12 04:30] VITALS: BP 113/58; PULSE 61; RESP 16; TEMP 98.6; O2SAT 100
[2016-09-12 08:00] VITALS: BP 120/59; PULSE 66; RESP 18; TEMP 98.4; O2SAT 100
[2016-09-12] MEDS: PANTOPRAZOLE SOD 40 MG DELAYED RELEASE TAB PO SCH (09:52)
[2016-09-12] MEDS: SODIUM CHLORIDE 0.9% FLUSH 10 ML FLUSH IV FLUSH SCH ×2 (09:53→20:43)
[2016-09-12 12:00] VITALS: BP 113/56; PULSE 71; RESP 18; TEMP 98.2; O2SAT 99
[2016-09-12] MEDS ORDERED: ESTROGENS CONJUGATED 25 MG/5 ML VIAL IM ONE (12:45)
--- NOTE | 2016-09-12 12:48 | HHI.PR ---
Subjective Remarks patient is still bleeding on and off passing large clots as per RN patient denies dizziness or chest pain denies sob vital signs stable Objective Vitals Vital Signs Date Time Temp Pulse Resp B/P Pulse Ox O2 Delivery O2 Flow Rate FiO2 09/12/16 12:00 98.2 71 18 113/56 99 09/12/16 08:00 98.4 66 18 120/59 100 09/12/16 04:30 98.6 61 16 113/58 100 09/11/16 23:17 98.3 70 16 117/64 100 09/11/16 20:12 98.4 73 16 120/62 99 09/11/16 16:00 98.8 79 18 141/89 97 I/O 09/11/16 09/11/16 09/11/16 09/12/16 09/12/16 09/12/16 07:00 15:00 23:00 07:00 15:00 23:00 Intake Total 480 ml 480 ml 240 ml 120 ml Balance 480 ml 480 ml 240 ml 120 ml Intake Oral 480 ml 480 ml 240 ml 120 ml # Voids 4 2 6 4 # Bowel Movements 0 0 2 0 # Sanitary Pads 1 Pads Result Diagram: 09/11/16 1614 09/11/16 1033 Imaging Last Impressions Pelvis CT 09/11/16 0000 Signed Impressions: Service Date/Time: Sunday, September 11, 2016 15:54 - CONCLUSION: 1. Markedly enlarged fibroid uterus. 2. Delayed images confirm that the transient cystic structures down by the vagina/cervix are either wings or diverticula off the urinary bladder. The bladder itself is markedly compressed by the enlarged uterus Buster Reyna MD Chest X-Ray 09/10/16 0130 Signed Impressions: Service Date/Time: August 01:57 - CONCLUSION: No acute disease. Sanjay Guerra MD Pelvis Ultrasound 09/10/16 0000 Signed Impressions: Service Date/Time: August 11:40 - CONCLUSION: 1. Fibroid uterus. 2. Right para-midline cystic area measuring 4.0 x 4.4 x 1.9 cm in the vaginal/cervical region appears to decompress on the postvoid images and therefore, may represent a prominent bladder diverticulum. Post contrast CT images may be useful for further characterization if clinically warranted. Buster Reyna MD Lower Extremity Ultrasound 09/10/16 0000 Signed Impressions: Service Date/Time: August 21:05 - CONCLUSION: Normal examination. Misael Allen Jr., MD Objective Remarks GENERAL: This is a well-nourished, well-developed patient, in no apparent distress. SKIN: No rashes, ecchymoses or lesions. Cool and dry. HEAD: Atraumatic. Normocephalic. No temporal or scalp tenderness. EYES: Pupils equal round and reactive. Extraocular motions intact. No scleral icterus. No injection or drainage. Pale conjunctiva. ENT: Nose without bleeding, purulent drainage or septal hematoma. Throat without erythema, tonsillar hypertrophy or exudate. Uvula midline. Airway patent. NECK: Trachea midline. No JVD or lymphadenopathy. Supple, nontender, no meningeal signs. CARDIOVASCULAR: Regular rate and rhythm without murmurs, gallops, or rubs. RESPIRATORY: Clear to auscultation. Breath sounds equal bilaterally. No wheezes , rales, or rhonchi. GASTROINTESTINAL: Abdomen soft, non-tender, nondistended. No hepato-splenomegaly , or palpable masses. No guarding. MUSCULOSKELETAL: Extremities without clubbing, cyanosis, or edema. No joint tenderness, effusion, or edema noted. No calf tenderness. Negative Homans sign bilaterally. NEUROLOGICAL: Awake and alert. Cranial nerves II through XII intact. Motor and sensory grossly within normal limits. Five out of 5 muscle strength in all muscle groups. Normal speech. Procedures None Medications and IVs Current Medications Medications (Trade) Dose Ordered Sig/Bina Route Start Time Stop Time Status Last Admin (NS Flush) 2 ml UNSCH PRN IV FLUSH 09/10/16 04:00 (NS Flush) 2 ml BID IV FLUSH 09/10/16 09:00 09/12/16 09:53 (Narcan Inj) 0.4 mg UNSCH PRN IV 09/10/16 04:00 (Protonix) 40 mg DAILY PO 09/10/16 10:45 09/12/16 09:52 (Tylenol) 650 mg Q4H PRN PO 09/10/16 21:15 09/11/16 17:54 Urinary Catheter: No Vascular Central Line Catheter: No A/P Problem List: (1) Severe anemia ICD Code: D64.9 Status: Acute Plan: 36-year-old female with past medical history of uterine fibroids, menometrorrhagia presents to [facility] complaining of fatigue, dizziness exertion, weakness and lightheadedness and found to have a hemoglobin of 4.9. Patient was admitted to the medical floor and transfused a total of 4 units of packed red blood cells with hemoglobin response up to 9.8. Continue to monitor H&H and transfuse for hemoglobin less than 7 or symptomatic anemia. Clinical hemoglobin is more than 9. 09/11 hemoglobin sightly trending down from 9.8 to 9.5 I will give a trial of Premarin 25 mg IV x1 and continue to monitor for bleeding. (2) Uterine fibroid ICD Code: D25.9 Status: Acute Plan: REMEDIATION PROJECT ENGINEER consult. The patient most likely will need a total hysterectomy. The patient has had a CT scan and this institution which showed a 5.72.7 cm right adnexal mass, probably a mildly complex ovarian cyst. Diffusely enlarged uterus with some calcifications characteristic of uterine fibroids. Pelvic ultrasound showed uterine fibroids and possible bladder diverticulum. CT of the pelvis with delayed images ordered to assess 09/11/16 CT of pelvis showed enlarged fibroid uterus. Delayed images confirm that the transient cystic structures down by the vagina/cervix either winks or diverticula of the urinary bladder. Follow-up as an outpatient with urology. (3) Menometrorrhagia ICD Code: N92.1 Status: Acute Plan: Appreciate BUFFING LINE SET UP WORKER consultation recommendations. The patient advised to follow-up as an outpatient. Assessment and Plan 3. DVT Prophylaxis: SCDs, no chemotherapy prophylaxis given active bleeding. GI prophylaxis: PPI. Discharge Planning Patient still with persistent bleeding passing large clots. Continue to monitor in the medical floor. Possible discharge in a.m. if bleeding slows down or stops and hemoglobin remain stable. Problem Qualifiers (1) Uterine fibroid: Qualified Code: D25.9 - Uterine leiomyoma, unspecified location Alex Branch MD Sep 12, 2016 12:48
[2016-09-12 14:29] LABS: HEMATOCRIT 29.7 % (35.0-46.0); MEAN CELL VOLUME 68.7 FL (80.0-100.0); MEAN CORPUSCULAR HEMOGLOBIN 22.3 PG (27.0-34.0); MEAN CORPUSCULAR HGB CONC 32.4 % (32.0-36.0); PLATELET COUNT 446 TH/MM3 (150-450); RED BLOOD COUNT 4.33 MIL/MM3 (4.00-5.30); RED CELL DISTRIBUTION WIDTH 31.7 % (11.6-17.2); WHITE BLOOD COUNT 8.7 TH/MM3 (4.0-11.0)
[2016-09-12 14:37] LABS: REVIEW FLAG FINAL
[2016-09-12 16:00] VITALS: BP_SYST 141; BP_SYST 180; BP_DIAS 75; BP_DIAS 76; PULSE 72; PULSE 75; RESP 18; TEMP 98; O2SAT 100; O2SAT 98
[2016-09-12 20:00] VITALS: BP 118/59; PULSE 83; RESP 18; TEMP 98.9; O2SAT 98
[2016-09-13] VITALS: BP 125/38; PULSE 70; RESP 18; TEMP 98.6; O2SAT 100
[2016-09-13] MEDS ORDERED: KETOROLAC TROMETHAMINE 30 MG/ML (IVP) VIAL IV PUSH ONE (04:00)
[2016-09-13 05:12] LABS: AUTOMATED NEUTROPHIL # 6.6 TH/MM3 (1.8-7.7); BASOPHIL # 0.1 TH/MM3 (0-0.2); BASOPHIL % 0.5 % (0.0-2.0); EOSINOPHIL # 0.8 TH/MM3 (0-0.4); EOSINOPHIL % 7.3 % (0.0-4.0); HEMATOCRIT 29.1 % (35.0-46.0); LYMPH % 20.4 % (9.0-44.0); LYMPHOCYTE # 2.2 TH/MM3 (1.0-4.8); MEAN CELL VOLUME 68.7 FL (80.0-100.0); MEAN CORPUSCULAR HEMOGLOBIN 21.5 PG (27.0-34.0); MEAN CORPUSCULAR HGB CONC 31.3 % (32.0-36.0); MONO % 10.3 % (0.0-8.0); NEUT % 61.5 % (16.0-70.0); PLATELET COUNT 473 TH/MM3 (150-450); RED BLOOD COUNT 4.23 MIL/MM3 (4.00-5.30); RED CELL DISTRIBUTION WIDTH 32.5 % (11.6-17.2); WHITE BLOOD COUNT 10.8 TH/MM3 (4.0-11.0)
[2016-09-13 05:19] LABS: BICARBONATE 26.8 MEQ/L (21.0-32.0); HEMO FLAGS AUTO DIFF; POTASSIUM 3.9 MEQ/L (3.5-5.1)
[2016-09-13 06:00] VITALS: BP 125/66; PULSE 67; RESP 20; O2SAT 99
[2016-09-13 06:46] LABS: OVALOCYTES 1+ (NORMAL); TEARDROP RBCS 1+ (NORMAL)
[2016-09-13 06:47] LABS: SCAN/DIFF AUTO DIFF CONFIRMED
[2016-09-13 08:00] VITALS: BP 120/58; PULSE 66; RESP 18; TEMP 98.7; O2SAT 99
[2016-09-13] MEDS: SODIUM CHLORIDE 0.9% FLUSH 10 ML FLUSH IV FLUSH SCH ×2 (09:00→21:00)
[2016-09-13] MEDS: PANTOPRAZOLE SOD 40 MG DELAYED RELEASE TAB PO SCH (09:00)
[2016-09-13 12:00] VITALS: BP 130/73; PULSE 57; RESP 18; TEMP 98.3; O2SAT 100
[2016-09-13] MEDS ORDERED: ESTROGENS CONJUGATED 25 MG/5 ML VIAL IV PUSH ONE (12:00)
--- NOTE | 2016-09-13 12:03 | HHI.PR ---
Subjective Remarks still passing large clots and having lower abdominal cramping since last night hemoglobin slightly decreased denies cp/sob very upset with RN from last night Objective Vitals Vital Signs Date Time Temp Pulse Resp B/P Pulse Ox O2 Delivery O2 Flow Rate FiO2 09/13/16 08:00 98.7 66 18 120/58 99 09/13/16 06:00 67 20 125/66 99 09/13/16 00:00 98.6 70 18 125/38 100 09/12/16 20:00 98.9 83 18 118/59 98 09/12/16 16:00 98.0 72 18 141/75 100 09/12/16 12:00 98.2 71 18 113/56 99 I/O 09/12/16 09/12/16 09/12/16 09/13/16 09/13/16 09/13/16 07:00 15:00 23:00 07:00 15:00 23:00 Intake Total 120 ml 1200 ml Balance 120 ml 1200 ml Intake Oral 120 ml 1200 ml # Voids 6 5 # Bowel Movements 0 2 # Sanitary Pads 1 Pads 5 Pads Result Diagram: 09/13/16 0442 09/13/16 0442 Imaging Last Impressions Pelvis CT 09/11/16 0000 Signed Impressions: Service Date/Time: Sunday, September 11, 2016 15:54 - CONCLUSION: 1. Markedly enlarged fibroid uterus. 2. Delayed images confirm that the transient cystic structures down by the vagina/cervix are either wings or diverticula off the urinary bladder. The bladder itself is markedly compressed by the enlarged uterus Buster Reyna MD Chest X-Ray 09/10/16 0130 Signed Impressions: Service Date/Time: August 01:57 - CONCLUSION: No acute disease. Sanjay Guerra MD Pelvis Ultrasound 09/10/16 0000 Signed Impressions: Service Date/Time: August 11:40 - CONCLUSION: 1. Fibroid uterus. 2. Right para-midline cystic area measuring 4.0 x 4.4 x 1.9 cm in the vaginal/cervical region appears to decompress on the postvoid images and therefore, may represent a prominent bladder diverticulum. Post contrast CT images may be useful for further characterization if clinically warranted. Buster Reyna MD Lower Extremity Ultrasound 09/10/16 0000 Signed Impressions: Service Date/Time: August 21:05 - CONCLUSION: Normal examination. Misael Allen Jr., MD Objective Remarks GENERAL: This is a well-nourished, well-developed patient, in no apparent distress. SKIN: No rashes, ecchymoses or lesions. Cool and dry. HEAD: Atraumatic. Normocephalic. No temporal or scalp tenderness. EYES: Pupils equal round and reactive. Extraocular motions intact. No scleral icterus. No injection or drainage. Pale conjunctiva. ENT: Nose without bleeding, purulent drainage or septal hematoma. Throat without erythema, tonsillar hypertrophy or exudate. Uvula midline. Airway patent. NECK: Trachea midline. No JVD or lymphadenopathy. Supple, nontender, no meningeal signs. CARDIOVASCULAR: Regular rate and rhythm without murmurs, gallops, or rubs. RESPIRATORY: Clear to auscultation. Breath sounds equal bilaterally. No wheezes , rales, or rhonchi. GASTROINTESTINAL: Abdomen soft, tender to palpation of hypogastrium, nondistended. No hepato-splenomegaly, No guarding, there is a mass palpable on palpation of hypogastrium. MUSCULOSKELETAL: Extremities without clubbing, cyanosis, or edema. No joint tenderness, effusion, or edema noted. No calf tenderness. Negative Homans sign bilaterally. NEUROLOGICAL: Awake and alert. Cranial nerves II through XII intact. Motor and sensory grossly within normal limits. Five out of 5 muscle strength in all muscle groups. Normal speech. Procedures None Medications and IVs Current Medications Medications (Trade) Dose Ordered Sig/Bina Route Start Time Stop Time Status Last Admin (NS Flush) 2 ml UNSCH PRN IV FLUSH 09/10/16 04:00 (NS Flush) 2 ml BID IV FLUSH 09/10/16 09:00 09/12/16 20:43 (Narcan Inj) 0.4 mg UNSCH PRN IV 09/10/16 04:00 (Protonix) 40 mg DAILY PO 09/10/16 10:45 09/12/16 09:52 (Tylenol) 650 mg Q4H PRN PO 09/10/16 21:15 09/11/16 17:54 Urinary Catheter: No Vascular Central Line Catheter: No A/P Problem List: (1) Severe anemia ICD Code: D64.9 Status: Acute Plan: 36-year-old female with past medical history of uterine fibroids, menometrorrhagia presents to [facility] complaining of fatigue, dizziness exertion, weakness and lightheadedness and found to have a hemoglobin of 4.9. Patient was admitted to the medical floor and transfused a total of 4 units of packed red blood cells with hemoglobin response up to 9.8. Continue to monitor H&H and transfuse for hemoglobin less than 7 or symptomatic anemia. Clinical hemoglobin is more than 9. 09/13 Hemoglobin continues to trend down. Patient had Premarin IV once yesterday. Patient passing large clots and with continuous bleeding. Patient had Premarin 25 mg IM once yesterday, will repeat Premarin but this time IV. If patient continues to be bleeding might need a hysterectomy on this admission , Will discuss with MATERIAL CHASER. (2) Uterine fibroid ICD Code: D25.9 Status: Acute Plan: HANDBAG FINISHER consult. The patient most likely will need a total hysterectomy. The patient has had a CT scan and this institution which showed a 5.72.7 cm right adnexal mass, probably a mildly complex ovarian cyst. Diffusely enlarged uterus with some calcifications characteristic of uterine fibroids. Pelvic ultrasound showed uterine fibroids and possible bladder diverticulum. CT of the pelvis with delayed images ordered to assess 09/12/16 CT of pelvis showed enlarged fibroid uterus. Delayed images confirm that the transient cystic structures down by the vagina/cervix either winks or diverticula of the urinary bladder. Follow-up as an outpatient with urology. (3) Menometrorrhagia ICD Code: N92.1 Status: Acute Plan: Follow up MATERIAL CHASER recommendations. Patient continues to bleed and pass large clots. Will most likely need a total Hysterectomy. Assessment and Plan DVT Prophylaxis: SCDs, no chemotherapy prophylaxis given active bleeding. GI prophylaxis: PPI. Discharge Planning Patient still with persistent bleeding passing large clots. Continue to monitor in the medical floor. Problem Qualifiers (1) Uterine fibroid: Qualified Code: D25.9 - Uterine leiomyoma, unspecified location Alex Branch MD Sep 13, 2016 12:03
[2016-09-13] MEDS ORDERED: KETOROLAC TROMETHAMINE 30 MG/ML (IVP) VIAL IV PUSH PRN (12:45)
[2016-09-13] MEDS ORDERED: oxyCODONE/ACETAMINOPHEN 5 MG/325 MG TAB PO PRN ×2 (12:45)
[2016-09-13] MEDS ORDERED: MORPHINE SULFATE 4 MG/ML INJ IV PUSH PRN (12:45)
[2016-09-13 16:00] VITALS: BP 124/62; PULSE 70; RESP 18; TEMP 98.5; O2SAT 99
[2016-09-13 20:00] VITALS: BP 118/68; PULSE 73; RESP 18; TEMP 98.5; O2SAT 100
[2016-09-14] VITALS: BP 114/61; PULSE 88; RESP 18; TEMP 97.9; O2SAT 100
[2016-09-14] MEDS: ACETAMINOPHEN 325 MG TAB PO PRN (00:52)
[2016-09-14 00:59] VITALS: PULSE 67
[2016-09-14 04:00] VITALS: BP 117/65; PULSE 60; RESP 16; TEMP 98.3; O2SAT 100
[2016-09-14 07:23] LABS: HEMATOCRIT 29.7 % (35.0-46.0); MEAN CELL VOLUME 70.5 FL (80.0-100.0); MEAN CORPUSCULAR HEMOGLOBIN 21.3 PG (27.0-34.0); MEAN CORPUSCULAR HGB CONC 30.2 % (32.0-36.0); PLATELET COUNT 409 TH/MM3 (150-450); RED BLOOD COUNT 4.21 MIL/MM3 (4.00-5.30); RED CELL DISTRIBUTION WIDTH 31.6 % (11.6-17.2)
[2016-09-14 07:44] LABS: REVIEW FLAG FINAL
[2016-09-14 08:37] VITALS: BP 120/69; PULSE 56; RESP 17; TEMP 97.9; O2SAT 100
[2016-09-14] MEDS: PANTOPRAZOLE SOD 40 MG DELAYED RELEASE TAB PO SCH (08:57)
[2016-09-14] MEDS: SODIUM CHLORIDE 0.9% FLUSH 10 ML FLUSH IV FLUSH SCH (08:57)
[2016-09-14] MEDS ORDERED: FERR325T PO (10:26)
--- NOTE | 2016-09-14 10:29 | HHI.DCPOC ---
Discharge Care Plan Diagnosis: (1) Menometrorrhagia (2) Severe anemia (3) Uterine fibroid (4) Diverticula, bladder Goals to Promote Your Health * To prevent worsening of your condition and complications * To maintain your health at the optimal level Directions to Meet Your Goals Take your medications as prescribed Follow your dietary instruction Follow activity as directed Keep your appointments as scheduled Take your immunizations and boosters as scheduled If your symptoms worsen call your PCP, if no PCP go to Urgent Care Center or Emergency Room Smoking is Dangerous to Your Health. Avoid second hand smoke Call the 24-hour hour crisis hotline for domestic abuse at Alex Branch MD Sep 14, 2016 10:29
--- NOTE | 2016-09-14 10:43 | HHI.DS ---
Discharge Summary Admission Date Sep 10, 2016 at 04:27 Discharge Date: Sep 14, 2016 Admitting Diagnosis anemia. Menorrhagia. Uterine fibroid. (1) Severe anemia ICD Code: D64.9 Diagnosis: Principal (2) Uterine fibroid ICD Code: D25.9 Diagnosis: Principal (3) Menometrorrhagia ICD Code: N92.1 Diagnosis: Principal (4) Diverticula, bladder ICD Code: N32.3 Diagnosis: Secondary Procedures None Brief History - From Admission Physical therapy 6-year-old female past medical history significant for recurrent anemia from menorrhagia and uterine fibroids. She presents with generalized malaise, fatigue and weakness as well as lightheadedness which started approximately 2 days ago and got worst last night. The patient states that she has had menorrhagia for the past year, she was started on control pills by an outside ASSOCIATE PROFESSOR OF CHEMISTRY in [facility]. Initially she would have intermittent menorrhagia, however per the past month she has had continues vaginal bleed with clots. The patient states that the ASSOCIATE PROFESSOR OF CHEMISTRY doctor that was seen here in [facility] and was going to perform surgery finally did not because she did not take her insurance. Patient has been admitted in the past for blood transfusion secondary to anemia, last admission for packed red blood cells transfusions was 2 months ago at the floor the hospital. The patient otherwise denies chest pain, shortness of breath, fevers, chills. The patient has being evaluated emergency department found to have a hemoglobin of 4.9 and so far has been confused 2 units of blood for blood cells from 4 that have been ordered. CBC/BMP: 09/14/16 0620 09/13/16 0442 Significant Findings Laboratory Tests Test 09/11/16 09/11/16 09/12/16 09/13/16 10:33 16:14 14:00 04:42 Hemoglobin 9.8 GM/DL 9.5 GM/DL 9.6 GM/DL 9.1 GM/DL (11.6-15.3) (11.6-15.3) (11.6-15.3) (11.6-15.3) Hematocrit 30.4 % 29.7 % 29.1 % (35.0-46.0) (35.0-46.0) (35.0-46.0) Mean Corpuscular Volume 67.4 FL 68.7 FL 68.7 FL (80.0-100.0) (80.0-100.0) (80.0-100.0) Mean Corpuscular Hemoglobin 21.8 PG 22.3 PG 21.5 PG (27.0-34.0) (27.0-34.0) (27.0-34.0) Red Cell Distribution Width 30.7 % 31.7 % 32.5 % (11.6-17.2) (11.6-17.2) (11.6-17.2) Platelet Count 460 TH/MM3 473 TH/MM3 (150-450) (150-450) Mean Platelet Volume 6.9 FL (7.0-11.0) Monocytes (%) (Auto) 9.9 % (0.0-8.0) 10.3 % (0.0-8.0) Eosinophils (%) (Auto) 7.4 % (0.0-4.0) 7.3 % (0.0-4.0) Eosinophils # (Auto) 0.6 TH/MM3 0.8 TH/MM3 (0-0.4) (0-0.4) Aspartate Amino Transf 13 U/L (15-37) (AST/SGOT) Albumin 2.9 GM/DL (3.4-5.0) Mean Corpuscular Hemoglobin 31.3 % Concent (32.0-36.0) Monocytes # (Auto) 1.1 TH/MM3 (0-0.9) Tear Drop Cells 1+ (NORMAL) Ovalocytes 1+ (NORMAL) Calcium Level 8.4 MG/DL (8.5-10.1) Test 09/14/16 06:20 Hemoglobin 9.0 GM/DL (11.6-15.3) Hematocrit 29.7 % (35.0-46.0) Mean Corpuscular Volume 70.5 FL (80.0-100.0) Mean Corpuscular Hemoglobin 21.3 PG (27.0-34.0) Mean Corpuscular Hemoglobin 30.2 % Concent (32.0-36.0) Red Cell Distribution Width 31.6 % (11.6-17.2) Imaging Last Impressions Pelvis CT 09/11/16 0000 Signed Impressions: Service Date/Time: Sunday, September 11, 2016 15:54 - CONCLUSION: 1. Markedly enlarged fibroid uterus. 2. Delayed images confirm that the transient cystic structures down by the vagina/cervix are either wings or diverticula off the urinary bladder. The bladder itself is markedly compressed by the enlarged uterus Buster Reyna MD Chest X-Ray 09/10/16 0130 Signed Impressions: Service Date/Time: August 01:57 - CONCLUSION: No acute disease. Sanjay Guerra MD Pelvis Ultrasound 09/10/16 0000 Signed Impressions: Service Date/Time: August 11:40 - CONCLUSION: 1. Fibroid uterus. 2. Right para-midline cystic area measuring 4.0 x 4.4 x 1.9 cm in the vaginal/cervical region appears to decompress on the postvoid images and therefore, may represent a prominent bladder diverticulum. Post contrast CT images may be useful for further characterization if clinically warranted. Buster Reyna MD Lower Extremity Ultrasound 09/10/16 0000 Signed Impressions: Service Date/Time: August 21:05 - CONCLUSION: Normal examination. Misael Allen Jr., MD PE at Discharge GENERAL: This is a well-nourished, well-developed patient, in no apparent distress. SKIN: No rashes, ecchymoses or lesions. Cool and dry. HEAD: Atraumatic. Normocephalic. No temporal or scalp tenderness. EYES: Pupils equal round and reactive. Extraocular motions intact. No scleral icterus. No injection or drainage. Pale conjunctiva. ENT: Nose without bleeding, purulent drainage or septal hematoma. Throat without erythema, tonsillar hypertrophy or exudate. Uvula midline. Airway patent. NECK: Trachea midline. No JVD or lymphadenopathy. Supple, nontender, no meningeal signs. CARDIOVASCULAR: Regular rate and rhythm without murmurs, gallops, or rubs. RESPIRATORY: Clear to auscultation. Breath sounds equal bilaterally. No wheezes , rales, or rhonchi. GASTROINTESTINAL: Abdomen soft, tender to palpation of hypogastrium, nondistended. No hepato-splenomegaly, No guarding, there is a mass palpable on palpation of hypogastrium. MUSCULOSKELETAL: Extremities without clubbing, cyanosis, or edema. No joint tenderness, effusion, or edema noted. No calf tenderness. Negative Homans sign bilaterally. NEUROLOGICAL: Awake and alert. Cranial nerves II through XII intact. Motor and sensory grossly within normal limits. Five out of 5 muscle strength in all muscle groups. Normal speech. Pt update on day of discharge Vaginal bleeding has stopped. patient denies cp/sob. denies dizziness. Hospital Course (1) Severe anemia 36-year-old female with past medical history of uterine fibroids, menometrorrhagia presents to [facility] complaining of fatigue, dizziness exertion, weakness and lightheadedness and found to have a hemoglobin of 4.9. Patient was admitted to the medical floor and transfused a total of 4 units of packed red blood cells with hemoglobin response up to 9.8. Continue to monitor H&H and transfuse for hemoglobin less than 7 or symptomatic anemia. Clinical hemoglobin is more than 9. Patient's bleeding stopped after a trial of Premarin 25 mg IV once. Patient advised to follow-up as an outpatient with AC[facility] LOADER. I discussed the case with the long term care social worker will try to help the patient with patient's assistance so that she can follow-up at the outpatient clinic with Dr. Doran. (2) Uterine fibroid Plan: ASSOCIATE PROFESSOR OF CHEMISTRY consult. The patient most likely will need a total hysterectomy. The patient has had a CT scan and this institution which showed a 5.72.7 cm right adnexal mass, probably a mildly complex ovarian cyst. Diffusely enlarged uterus with some calcifications characteristic of uterine fibroids. Pelvic ultrasound showed uterine fibroids and possible bladder diverticulum. CT of the pelvis with delayed images ordered to assess 09/12/16 CT of pelvis showed enlarged fibroid uterus. Delayed images confirm that the transient cystic structures down by the vagina/cervix either winks or diverticula of the urinary bladder. Follow-up as an outpatient with urology. (3) Menometrorrhagia Patient initially passing large clots. Patient was evaluated by ACID LOADER. Heavy bleeding stopped after administration of Premarin IV. Will Dc the patient on oral medroxyprogesterone acetate 10 mg by mouth daily 10 days. DVT Prophylaxis: SCDs, no chemotherapy prophylaxis given active bleeding. GI prophylaxis: PPI. Pt Condition on Discharge: Stable Discharge Disposition: Discharge Home Discharge Time: > 30 minutes Discharge Instructions DIET: Follow Instructions for: As Tolerated, No Restrictions Activities you can perform: Regular-No Restrictions Follow up Referrals: ASSOCIATE PROFESSOR OF CHEMISTRY - 2-3 Days with Zuly Sol MD PCP Follow-up - 1 Week with Danika Alcocer MD Urology Continued Medications: Ferrous Sulfate (Ferrous Sulfate) 325 Mg Tab 325 MG PO DAILY Nutritional Supplement #30 Ref 0 TAB (This prescription has been renewed) Discontinued Medications: Medroxyprogesterone Acetate (Medroxyprogesterone Acetate) 10 Mg Tab 10 MG PO DAILY Start day 21 Uterine bleeding #5 Ref 0 TAB Alex Branch MD Sep 14, 2016 10:43
[2016-09-14] MEDS ORDERED: MEDR10TA7 PO (10:44)
[2016-09-14 11:58] VITALS: PULSE 60
[2016-09-14 12:16] VITALS: BP 134/72; PULSE 73; RESP 18; TEMP 98.4; O2SAT 100
[2016-09-24] MEDS ORDERED: FERR325T PO (11:48)
== END 2016-09-14 12:30 | disposition home or self-care (01) | DRG 812 ==
LOC: NEPC 00:10 → NEDA 04:27 → N04B 14:58
PROVIDERS: ADMIT Hospitalist; ATTEND Hospitalist
PROC: 30233N1 Transfusion of Nonautologous Red Blood Cells into Peripheral Vein, Percutaneous Approach (ICD-10-PCS; principal; 2016-09-10)
DX: D50.0 Iron deficiency anemia secondary to blood loss (chronic) (principal); D25.9 Leiomyoma of uterus, unspecified; N92.0 Excessive and frequent menstruation with regular cycle; N92.1 Excessive and frequent menstruation with irregular cycle; N83.209 Unspecified ovarian cyst, unspecified side; N32.3 Diverticulum of bladder; F12.90 Cannabis use, unspecified, uncomplicated; F17.210 Nicotine dependence, cigarettes, uncomplicated; Z88.5 Allergy status to narcotic agent
CPT/HCPCS: 36430; 71010; 72193; 76856; 80048; 80053; 84703; 85018; 85025; 85027; 85610; 85730; 86850; 86900; 86901; 86902; 86920; 86922; 93971; 99285; J1410; J1885; J1940; J7050; P9016; Q9967

== ENCOUNTER 2016-09-18 00:12 | Emergency (ER) | payer MEDICAID ==
[~2016-09-18 00:12] MED LIST changes: -FERR324T4 PO; +FERR325T PO; -FOLI1 PO; +MEDR10TA7 PO
[2016-09-18 00:13] VITALS: BP 139/75; PULSE 100; RESP 16; TEMP 98.5; O2SAT 99
[2016-09-18 01:24] LABS: AUTOMATED NEUTROPHIL # 5.4 TH/MM3 (1.8-7.7); BASOPHIL # 0.1 TH/MM3 (0-0.2); BASOPHIL % 1.3 % (0.0-2.0); EOSINOPHIL # 0.5 TH/MM3 (0-0.4); EOSINOPHIL % 5.8 % (0.0-4.0); HEMATOCRIT 28.3 % (35.0-46.0); LYMPH % 24.9 % (9.0-44.0); LYMPHOCYTE # 2.3 TH/MM3 (1.0-4.8); MEAN CELL VOLUME 68.6 FL (80.0-100.0); MEAN CORPUSCULAR HEMOGLOBIN 21.1 PG (27.0-34.0); MEAN CORPUSCULAR HGB CONC 30.8 % (32.0-36.0); MONO % 9.1 % (0.0-8.0); NEUT % 58.9 % (16.0-70.0); PLATELET COUNT 499 TH/MM3 (150-450); RED BLOOD COUNT 4.13 MIL/MM3 (4.00-5.30); RED CELL DISTRIBUTION WIDTH 31.3 % (11.6-17.2); WHITE BLOOD COUNT 9.2 TH/MM3 (4.0-11.0)
[2016-09-18 01:38] LABS: HEMO FLAGS AUTO DIFF
[2016-09-18 01:41] LABS: BICARBONATE 28.5 MEQ/L (21.0-32.0); POTASSIUM 3.6 MEQ/L (3.5-5.1)
[2016-09-18 02:11] LABS: OVALOCYTES 1+ (NORMAL); SCAN/DIFF AUTO DIFF CONFIRMED
[2016-09-18] MEDS ORDERED: MORPHINE SULFATE 4 MG/ML INJ IV PUSH ONE (04:00)
[2016-09-18 05:00] VITALS: BP 110/66; PULSE 80; RESP 16; O2SAT 99
[2016-09-18] MEDS ORDERED: ESTROGENS CONJUGATED 25 MG/5 ML VIAL IV PUSH ONE (06:00)
[2016-09-18] MEDS ORDERED: SODIUM CHLOR 0.9% 1000 ML INJ 1,000 ML IV ONE (06:00)
--- NOTE | 2016-09-18 07:16 | PD ---
HPI Chief Complaint: Bleeding Time Seen by Provider: 03:54 Travel History International Travel<30 days: No Contact w/Intl Traveler<30days: No Traveled to known affect area: No History of Present Illness HPI 36yo F with PMH of bleeding and pain from uterine fibroids here with c/o vaginal bleeding the next day after being discharge from the hospital. Pt was admitted 09/10/16-09/14/16 for transfusion and had premarin 25mg IV which stopped the bleeding. Has mild sob. Denies any fever, chest pain, n/v, abdominal pain. PFSH Past Medical History Anemia: Yes Cancer: No Cardiovascular Problems: No Diminished Hearing: No Endocrine: No Genitourinary: No Immune Disorder: No Musculoskeletal: No Neurologic: No Psychiatric: No Reproductive: Yes (Menorrhagia) Respiratory: No Immunizations Current: Yes ?: Not Tubal Ligation: Yes Past Surgical History Section: Yes (X3) Family History Family Hypercholesterolemia: Yes Social History Alcohol Use: No Tobacco Use: Yes (1ppd over 3 days) Substance Use: No (OCCASIONAL MARAJUANA) Allergies-Medications (Allergen,Severity, Reaction): Coded Allergies: Tramadol (Verified Allergy, Severe, Nausea/Vomiting, 09/18/16) Reported Meds & Prescriptions Reported Meds & Active Scripts Active Medroxyprogesterone Acetate 10 Mg Tab 10 Mg PO DAILY Start day 16 Ferrous Sulfate 325 Mg Tab 325 Mg PO DAILY Review of Systems Except as stated in HPI: all other systems reviewed are Neg Physical Exam Narrative GENERAL: 36yo F in mild distress. SKIN: Focused skin assessment warm/dry. HEAD: Atraumatic. Normocephalic. CARDIOVASCULAR: Regular rate and rhythm. No murmur appreciated. RESPIRATORY: No accessory muscle use. Clear to auscultation. Breath sounds equal bilaterally. GASTROINTESTINAL: Abdomen soft, non-tender, nondistended. PELVIC: +Blood in vaginal vault. +Blood clot from cervix. MUSCULOSKELETAL: No obvious deformities. No clubbing. No cyanosis. No edema. NEUROLOGICAL: Awake and alert. No obvious cranial nerve deficits. Motor grossly within normal limits. Normal speech. PSYCHIATRIC: Appropriate mood and affect; insight and judgment normal. Data Data Last Documented VS Vital Signs Date Time Temp Pulse Resp B/P Pulse Ox O2 Delivery O2 Flow Rate FiO2 09/18/16 05:00 80 16 110/66 99 Room Air 09/18/16 00:13 98.5 Orders Complete Blood Count With Diff (09/18/16 00:38) Basic Metabolic Panel (Bmp) (09/18/16 00:38) Iv Access Insert/Monitor (09/18/16 00:38) Type And Screen (09/18/16 00:38) Red Blood Cells (Rbc) (09/18/16 01:15) Magnesium (Mg) (09/18/16 03:55) Morphine Inj (Morphine Inj) (09/18/16 04:00) Estrogens Conjugated Inj (Premarin Inj) (09/18/16 06:00) Sodium Chlor 0.9% 1000 Ml Inj (Ns 1000 M (09/18/16 06:00) Labs Laboratory Tests Test 09/18/16 01:15 White Blood Count 9.2 TH/MM3 Red Blood Count 4.13 MIL/MM3 Hemoglobin 8.7 GM/DL Hematocrit 28.3 % Mean Corpuscular Volume 68.6 FL Mean Corpuscular Hemoglobin 21.1 PG Mean Corpuscular Hemoglobin 30.8 % Concent Red Cell Distribution Width 31.3 % Platelet Count 499 TH/MM3 Mean Platelet Volume 7.2 FL Neutrophils (%) (Auto) 58.9 % Lymphocytes (%) (Auto) 24.9 % Monocytes (%) (Auto) 9.1 % Eosinophils (%) (Auto) 5.8 % Basophils (%) (Auto) 1.3 % Neutrophils # (Auto) 5.4 TH/MM3 Lymphocytes # (Auto) 2.3 TH/MM3 Monocytes # (Auto) 0.8 TH/MM3 Eosinophils # (Auto) 0.5 TH/MM3 Basophils # (Auto) 0.1 TH/MM3 CBC Comment AUTO DIFF Differential Comment AUTO DIFF CONFIRMED Ovalocytes 1+ Sodium Level 139 MEQ/L Potassium Level 3.6 MEQ/L Chloride Level 105 MEQ/L Carbon Dioxide Level 28.5 MEQ/L Anion Gap 6 MEQ/L Blood Urea Nitrogen 6 MG/DL Creatinine 0.56 MG/DL Estimat Glomerular Filtration 150 ML/MIN Rate Random Glucose 132 MG/DL Calcium Level 8.6 MG/DL Magnesium Level 2.1 MG/DL Blood Type A POSITIVE Antibody Screen POSITIVE Crossmatch Leukocyte-Reduced Red Blood Cells Blood Bank Comment MDM Medical Decision Making Medical Screen Exam Complete: Yes Emergency Medical Condition: Yes Interpretation(s) Sinus rhythm 89bpm with bigeminy. Differential Diagnosis Menorrhagia vs. uterine fibroid vs. symptomatic anemia Narrative Course 36yo F with uterine fibroid here with vaginal bleeding again. Pt has an appointment with OBGYN next week. Pt also has progesterone that she is taking daily. Labs reviewed, no leukocytosis. H/H 8.7/28.3. Magnesium 2.1. CMP unremarkable. VS stable. Discussed with OB hospitalist who suggested premarin 25mg IV and follow up with OBGYN as outpatient. Morphine and IVF NS given. Pt' s pain has improved. Pt noted to have bigeminy on EKG. Informed pt to follow up with cardiology as outpatient. Diagnosis Primary Impression: Menorrhagia Qualified Code: N92.1 - Menorrhagia with irregular cycle Referrals: Pineda Feliciano MD call for appointment Bigeminy seen on EKG Patient Instructions: General Instructions Departure Forms: Tests/Procedures Additional Instructions: Please follow up with your OBGYN at your appointment time. Return to the ED if symptoms worsen. Please follow up with finance specialist for bigeminy seen on EKG. Disposition: 01 DISCHARGE HOME Condition: Stable Soila Trejo DO Sep 18, 2016 07:16
[2016-09-18 07:58] VITALS: BP 130/78
--- NOTE | 2016-09-18 16:38 | EKG ---
Date Performed: 09/18/2016 Time Performed: 03:37:17 PTAGE: 36 years EKG: Sinus rhythm WITH FREQUENT VENTRICULAR PREMATURE COMPLEXES IN A BIGEMINAL PATTERN ABNORMAL RHYTHM ECG Compared to prior tracing no significant change PREVIOUS TRACING : 09/18/2016 03.35 DOCTOR: Joe Galloway Interpretating Date/Time 09/18/2016 16:36:23
[2016-09-24] MEDS ORDERED: FERR325T PO (11:48)
== END 2016-09-18 07:59 | disposition home or self-care (01) ==
LOC: NEPC 00:12
DX: N92.1 Excessive and frequent menstruation with irregular cycle (principal); D25.9 Leiomyoma of uterus, unspecified; R06.02 Shortness of breath; R94.31 Abnormal electrocardiogram [ECG] [EKG]
CPT/HCPCS: 80048; 83735; 85025; 86850; 86900; 86901; 86902; 86920; 86922; 93005; 96374; 96375; 99284; J1410; J2270; J7030

== ENCOUNTER 2016-10-18 14:16 | Inpatient (IN) | payer MEDICAID ==
[~2016-10-18] VITALS: Ht 162.6 cm; Wt 69.3 kg
[2016-10-18] VITALS (12 sets, daily range): BP systolic 112–137; BP diastolic 55–86; PULSE 78–94; RESP 15–20; TEMP 97.8–99; O2SAT 98–100
--- NOTE | 2016-10-18 14:39 | PD ---
Physical Exam Date Seen by Provider: Oct 18, 2016 Time Seen by Provider: 14:34 Narrative 36 y/o female presents S/P syncopal episode while at work. Patient has Hx. Low Iron, and has felt bad since starting menstrating a week ago. patient C/O H/A and Neck discomfort. Feels weak and dizzy, but dines fever, chills, nausea, vomiting, or abdominal pain. V/S stable Patient waiting bed placement. Data Data Last Documented VS Vital Signs Date Time Temp Pulse Resp B/P Pulse Ox O2 Delivery O2 Flow Rate FiO2 10/18/16 14:18 98.2 94 18 127/69 99 MDM Medical Record Reviewed: Yes Supervised Visit with LYDIA: Yes Condition: Stable Alden Mehta Oct 18, 2016 14:39
[2016-10-18 15:06] LABS: MEAN CORPUSCULAR HGB CONC 28.9 % (32.0-36.0)
--- NOTE | 2016-10-18 15:15 | PD ---
HPI Chief Complaint: Syncope/Near-Syncope Time Seen by Provider: 14:53 Travel History International Travel<30 days: No Contact w/Intl Traveler<30days: No Traveled to known affect area: No History of Present Illness HPI The patient was seen and examined in the presence of the nurse. 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 She's been having vaginal bleeding for a week now. She has long history of menorrhagia and was recently hospitalized for same. She has known fibroid uterus I causes heavy bleeding. She had a syncopal episode and woke up on the ground. She denies pelvic pain. She denies . Symptoms severity is severe. No alleviating factors. Duration one week. PFSH Past Medical History Anemia: Yes Cancer: No Cardiovascular Problems: No Diminished Hearing: No Endocrine: No Genitourinary: No Immune Disorder: No Musculoskeletal: No Neurologic: No Psychiatric: No Reproductive: Yes (Menorrhagia) Respiratory: No Immunizations Current: Yes ?: Not LMP: 10/11/16 Tubal Ligation: Yes Past Surgical History Section: Yes (X3) Family History Family Hypercholesterolemia: Yes Social History Alcohol Use: No Tobacco Use: Yes (1ppd over 3 days) Substance Use: No ([facility]) Allergies-Medications (Allergen,Severity, Reaction): Coded Allergies: Tramadol (Verified Allergy, Severe, Nausea/Vomiting, 09/24/16) Reported Meds & Prescriptions Reported Meds & Active Scripts Active Reported Ferrous Sulfate 325 Mg Tab 325 Mg PO TID Review of Systems General / Constitutional: No: Fever Eyes: No: Visual changes HENT: Positive: Lightheadedness, No: Headaches Cardiovascular: Positive: Syncope, No: Chest Pain or Discomfort Respiratory: No: Shortness of Breath Gastrointestinal: No: Abdominal Pain Genitourinary: No: Dysuria Musculoskeletal: Positive: Weakness, No: Pain Skin: No Rash Neurologic: Positive: Weakness, Dizziness, Syncope Psychiatric: No: Depression Endocrine: No: Polydipsia Hematologic/Lymphatic: No: Easy Bruising Physical Exam Narrative GENERAL: Well-nourished, well-developed patient with lightheadedness and generalized weakness and vaginal bleeding . SKIN: Focused skin assessment reveals no rash and nodules. Skin is Warm and dry. HEAD: Atraumatic. Normocephalic. EYES: Pupils equal and round. No scleral icterus. No injection or drainage. ENT: No nasal bleeding or discharge. Mucous membranes pink and moist. NECK: Trachea midline. No JVD. CARDIOVASCULAR: Regular rate and rhythm. No murmur appreciated. RESPIRATORY: No accessory muscle use. Clear to auscultation. Breath sounds equal bilaterally. GASTROINTESTINAL: Abdomen soft, non-tender, nondistended. Hepatic and splenic margins not palpable. MUSCULOSKELETAL: No obvious deformities. No clubbing. No cyanosis. No edema. NEUROLOGICAL: Awake and alert. No obvious cranial nerve deficits. Motor grossly within normal limits. Normal speech. PSYCHIATRIC: Appropriate mood and affect; insight and judgment seems a bit weak . Data Data Last Documented VS Vital Signs Date Time Temp Pulse Resp B/P Pulse Ox O2 Delivery O2 Flow Rate FiO2 10/18/16 15:43 83 16 100 Room Air 10/18/16 14:18 98.2 127/69 Orders Iv Access Insert/Monitor (10/18/16 15:03) Complete Blood Count With Diff (10/18/16 15:03) Basic Metabolic Panel (Bmp) (10/18/16 15:03) Beta Hcg (Quant/Titer) (10/18/16 15:03) Type And Screen (10/18/16 15:03) Electrocardiogram (10/18/16 ) Tailercpa / Telemetry [id number] (10/18/16 15:03) Prothrombin Time / Inr (Pt) (10/18/16 15:15) Act Partial Throm Time (Ptt) (10/18/16 15:15) Sodium Chlor 0.9% 1000 Ml Inj (Ns 1000 M (10/18/16 15:30) Red Blood Cells (Rbc) (10/18/16 16:19) Blood Product Administration .UPON TRANSFUSION (10/18/16 16:19) Sodium Chlor 0.9% 250 Ml Inj (Ns 250 Ml (10/18/16 16:30) Admit Order (Ed Use Only) (10/18/16 16:48) Labs Laboratory Tests Test 10/18/16 10/18/16 10/18/16 15:11 15:30 16:26 White Blood Count 8.2 TH/MM3 Red Blood Count 2.91 MIL/MM3 Hemoglobin 5.2 GM/DL Hematocrit 18.1 % Mean Corpuscular Volume 62.2 FL Mean Corpuscular Hemoglobin 18.0 PG Mean Corpuscular Hemoglobin 28.9 % Concent Red Cell Distribution Width 27.4 % Platelet Count 418 TH/MM3 Mean Platelet Volume 7.4 FL Neutrophils (%) (Auto) 68.8 % Lymphocytes (%) (Auto) 17.3 % Monocytes (%) (Auto) 8.8 % Eosinophils (%) (Auto) 4.9 % Basophils (%) (Auto) 0.2 % Neutrophils # (Auto) 5.7 TH/MM3 Lymphocytes # (Auto) 1.4 TH/MM3 Monocytes # (Auto) 0.7 TH/MM3 Eosinophils # (Auto) 0.4 TH/MM3 Basophils # (Auto) 0.0 TH/MM3 CBC Comment AUTO DIFF Differential Comment AUTO DIFF CONFIRMED Platelet Estimate NORMAL Platelet Morphology Comment NORMAL Sodium Level 135 MEQ/L Potassium Level 3.5 MEQ/L Chloride Level 102 MEQ/L Carbon Dioxide Level 26.4 MEQ/L Anion Gap 7 MEQ/L Blood Urea Nitrogen 6 MG/DL Creatinine 0.50 MG/DL Estimat Glomerular Filtration 171 ML/MIN Rate Random Glucose 79 MG/DL Calcium Level 8.3 MG/DL Human Chorionic Gonadotropin, LESS THAN 1 Quant MIU/ML Blood Type A POSITIVE Antibody Screen POSITIVE Prothrombin Time 11.3 SEC Prothromb Time International 1.0 RATIO Ratio Activated Partial 25.1 SEC Thromboplast Time Crossmatch Leukocyte-Reduced Red Blood Cells Blood Bank Comment MDM Medical Decision Making Medical Screen Exam Complete: Yes Emergency Medical Condition: Yes Medical Record Reviewed: Yes Differential Diagnosis Symptomatic anemia, cardiac arrhythmia, menorrhagia, ectopic Narrative Course I have reviewed the patient's electronic medical record. I reviewed her admission from 1 month ago for the same problem. She had a hemoglobin of 4.9 on admission and left with a hemoglobin of 8.9. I reviewed the SCREENER OPERATOR consultation. It sounds like she was supposed to follow up with Dr. Simental as an outpatient. Patient saw a doctor a few days after discharge but doesn't know who it was or what type of Dr. they were. It was not Dr. Simental as she describes a [place] female. IV placed CBC shows profound anemia with hemoglobin of 5.2 Metabolic profile is normal Beta hCG is negative coagulation studies are normal I reviewed her EKG which shows bigeminy at 80 Extended cardiac monitoring reveals bigeminy in the 80s Patient is critically ill with profound anemia 5.2 and syncope with bigeminy I reviewed with the TOOLING ENGINEERING TECH on-call physician I also reviewed with the OB hospitalist who will be a store sales consultant on this case and recommends that I transfuse the patient and get her admitted to the residents or hospitalist I have ordered 3 units of packed red cells Critical Care Narrative Aggregate critical care time was 38 minutes. Time to perform other separately billable procedures was not included in the critical care time. My time did not include minutes spent treating any other patients simultaneously or on activities that did not directly contribute to the patient's treatment. The services I provided to this patient were to treat and/or prevent clinically significant deterioration that could result in: Hemorrhagic shock, cardiopulmonary arrest, cardiac arrhythmia I provided critical care services requiring my management, as noted below: Chart data review, documentation time, medication orders and management, vital sign assessments/reviewing monitor data, ordering and reviewing lab tests, ordering and interpreting/reviewing x-rays and diagnostic studies, care of the patient and discussion of the patient with the admitting physicians. Diagnosis Primary Impression: Symptomatic anemia Additional Impressions: Syncope Qualified Code: R55 - Syncope, unspecified syncope type Menometrorrhagia Noraloganezequiel Admitting Information Admitting Physician Requests: Admit Condition: Stable Kelvin Malik MD Oct 18, 2016 15:15
[2016-10-18] MEDS ORDERED: SODIUM CHLOR 0.9% 1000 ML INJ 1,000 ML IV ONE (15:30)
[2016-10-18 15:52] LABS: AUTOMATED NEUTROPHIL # 5.7 TH/MM3 (1.8-7.7); BASOPHIL % 0.2 % (0.0-2.0); EOSINOPHIL # 0.4 TH/MM3 (0-0.4); EOSINOPHIL % 4.9 % (0.0-4.0); LYMPH % 17.3 % (9.0-44.0); LYMPHOCYTE # 1.4 TH/MM3 (1.0-4.8); MEAN CELL VOLUME 62.2 FL (80.0-100.0); MONO % 8.8 % (0.0-8.0); NEUT % 68.8 % (16.0-70.0); PLATELET COUNT 418 TH/MM3 (150-450); RED BLOOD COUNT 2.91 MIL/MM3 (4.00-5.30); RED CELL DISTRIBUTION WIDTH 27.4 % (11.6-17.2); WHITE BLOOD COUNT 8.2 TH/MM3 (4.0-11.0)
[2016-10-18 15:58] LABS: HEMO FLAGS AUTO DIFF
[2016-10-18 16:01] LABS: HEMATOCRIT 18.1 % (35.0-46.0)
[2016-10-18 16:10] LABS: APTT (PATIENT) 25.1 SEC (24.3-30.1); PROTHROMBIN TIME - PATIENT 11.3 SEC (9.8-11.6)
[2016-10-18 16:13] LABS: ANION GAP 7 MEQ/L (5-15); BICARBONATE 26.4 MEQ/L (21.0-32.0); BLOOD UREA NITROGEN 6 MG/DL (7-18); CHLORIDE 102 MEQ/L (98-107); GLOMERULAR FILTRATION RATE 171 ML/MIN (>89); POTASSIUM 3.5 MEQ/L (3.5-5.1); SODIUM (NA) 135 MEQ/L (136-145)
[2016-10-18 16:16] LABS: BETA HCG QUANT LESS THAN 1 MIU/ML (0-5)
[2016-10-18] MEDS ORDERED: SODIUM CHLOR 0.9% 250 ML INJ 250 ML IV ONE (16:30)
[2016-10-18 16:45] LABS: PLATELET ESTIMATE SMEAR NORMAL (NORMAL); PLATELET MORPHOLOGY NORMAL (NORMAL); SCAN/DIFF AUTO DIFF CONFIRMED
--- NOTE | 2016-10-18 17:51 | HHI.HP ---
HPI Service Family Medicine Primary Care Physician No Primary Care Physician Admission Diagnosis symtpomatic anemia,syncope,menorrhagia Diagnoses: International Travel<30 Days: No Contact w/Intl Traveler<30days: No Known Affected Area: No History of Present Illness Patient is a 36-year-old female with a history of fibroid, iron deficiency anemia and menorrhagia who presents for syncopal episode at work. She states that she has not had a syncopal episode in years but has a long -standing history of anemia related to menorrhalgia. She notes that she has been feeling bad since Wednesday does not describe this feeling in detail. This afternoon at her first day of work at [employer] (indoor job) she stood up and felt dizzy. She tried to walk to get water but passed out for unknown length of time. He does note that she hit her head on the floor but does not know where. When she woke up her coworkers had alerted already EMS. She has not had syncope recently and has never had any seizures denies bowel or bladder incontinence during her episode today. Denies chest pain or recent illnesses but does endorse some shortness of breath. She has a long-standing history of menometrorrhagia and she states that she just finished having a menstrual period. They're always heavy and the most recent period was not continuous but was "on and off" with heavy periods some days and no periods Sundays. She is nonspecific about how long each period lasts but does state that they last sometimes up to a month at a time and that she uses 67 super absorbency tampons in a half day. She had a 4 day hospital stay in August 2016 for menorrhagia at which time she received IV Premarin and was discharged with medroxyprogesterone acetate and notes to prevent overgrowth of the uterine lining. She was given a 5 day supply of this medication. She has no PCP and has gone through multiple avenues trying to get set up for hysterectomy as outpatient. She has been seen as an inpatient for multiple blood transfusions. She has been taking iron pills daily. On review of systems, she endorses feeling very tired and having a headache most prominent in the occipital and temporal regions. (Rebeca Méndez MD R1) Review of Systems Constitutional: COMPLAINS OF: Dizziness, DENIES: Fever, Weight loss, Chills, Change in appetite Endocrine: COMPLAINS OF: Abnorml menstrual pattern Eyes: DENIES: Blurred vision, Diplopia, Vision loss Ears, nose, mouth, throat: DENIES: Tinnitus, Hearing loss, Vertigo, Throat pain , Epistaxis Respiratory: DENIES: Cough, Wheezing, Hemoptysis Cardiovascular: COMPLAINS OF: Syncope, DENIES: Chest pain, Lower Extremity Edema Gastrointestinal: DENIES: Black stools, Bloody stools, Constipation, Diarrhea, Nausea, Vomiting Genitourinary: COMPLAINS OF: Abnormal vaginal bleeding, DENIES: Dysmenorrhea, Urinary frequency, Urgency, Hematuria, Dysuria, Vaginal discharge Musculoskeletal: COMPLAINS OF: Muscle aches Integumentary: DENIES: Abnormal pigmentation, Pruritus, Nail changes Hematologic/lymphatic: DENIES: Bruising Neurologic: DENIES: Abnormal gait, Localized weakness Psychiatric: DENIES: Anxiety, Depression (Rebeca Méndez MD R1) Past Family Social History Past Medical History Iron deficiency Anemia 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: , status post 3 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 due to 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 Menstrual periods since age 16, always irregular Menorrhagia Fibroids Past Surgical History tubal ligation Reported Medications Reported Meds & Active Scripts Active Reported Ferrous Sulfate 325 Mg Tab 325 Mg PO TID (Rebeca Méndez MD R1) Allergies: Coded Allergies: Tramadol (Verified Allergy, Severe, Nausea/Vomiting, 09/24/16) Active Ordered Medications Inpatient Medications Acetaminophen (Tylenol) 650 mg Q4H PRN PO HEADACHE, TEMP > 100.4; Start at 18:00 Naloxone HCl (Narcan Inj) 0.4 mg UNSCH PRN IV SEE LABEL COMMENTS; Start at 18:00 Ondansetron HCl (Zofran Inj) 4 mg Q6H PRN IVP NAUSEA OR VOMITING; Start at 18:00 Sodium Chloride (NS 1000 ml Inj) 1,000 ml @ 110 mls/hr Q9H6M IV ; Start at 17:46 Sodium Chloride (NS Flush) 2 ml BID IV FLUSH ; Start 10/18/16 at 21:00 Family History Mother with fibroids and HTN, multiple cousins with fibroids as well Father health history unknown Siblings healthy Children healthy, ages 6, 9, 14 Social History Endorses one pack per week cigarettes Occasional alcohol Denies illicit drug use No insurance, has had workup for blue card in the past but is from [facility] (Rebeca Méndez MD R1) Physical Exam Vital Signs Vital Signs Date Time Temp Pulse Resp B/P Pulse Ox O2 Delivery O2 Flow Rate FiO2 10/18/16 17:30 99.0 92 16 129/70 98 Room Air 10/18/16 17:15 98.6 88 16 120/60 100 Room Air 10/18/16 17:10 98.7 87 15 122/61 100 Room Air 10/18/16 17:05 98.6 82 15 122/60 100 Room Air 10/18/16 17:00 98.6 85 15 137/60 100 Room Air 10/18/16 15:43 83 16 100 Room Air 10/18/16 14:18 98.2 94 18 127/69 99 Physical Exam GENERAL: Patient is a tired-looking -[place] female lying in bed with eyes closed. She is in no apparent distress SKIN: Warm and dry. No obvious rashes HEAD: Atraumatic. Normocephalic. EYES: Pupils equal and round. No scleral icterus. No injection or drainage. Conjunctival pallor noted but mild ENT: No nasal bleeding or discharge. Mucous membranes pink and moist. NECK: Trachea midline. No JVD. Full range of motion noted all along cervical spine CARDIOVASCULAR: Regular rate and rhythm. Systolic ejection murmur noted. RESPIRATORY: No accessory muscle use. Clear to auscultation. Breath sounds equal bilaterally. GASTROINTESTINAL: Bowel sounds hypoactive. Abdomen soft, non-tender, nondistended. Hepatic and splenic margins not palpable. MUSCULOSKELETAL: Extremities without clubbing, cyanosis, or edema. No obvious deformities. NEUROLOGICAL: Awake and alert. No obvious cranial nerve deficits. Motor grossly within normal limits. Five out of 5 muscle strength in the arms and legs. Normal speech. PSYCHIATRIC: Appropriate mood and affect; insight and judgment normal. Laboratory Laboratory Tests Test 10/18/16 10/18/16 10/18/16 15:11 15:30 16:26 White Blood Count 8.2 Red Blood Count 2.91 Hemoglobin 5.2 Hematocrit 18.1 Mean Corpuscular Volume 62.2 Mean Corpuscular Hemoglobin 18.0 Mean Corpuscular Hemoglobin 28.9 Concent Red Cell Distribution Width 27.4 Platelet Count 418 Mean Platelet Volume 7.4 Neutrophils (%) (Auto) 68.8 Lymphocytes (%) (Auto) 17.3 Monocytes (%) (Auto) 8.8 Eosinophils (%) (Auto) 4.9 Basophils (%) (Auto) 0.2 Neutrophils # (Auto) 5.7 Lymphocytes # (Auto) 1.4 Monocytes # (Auto) 0.7 Eosinophils # (Auto) 0.4 Basophils # (Auto) 0.0 CBC Comment AUTO DIFF Differential Comment AUTO DIFF CONFIRMED Platelet Estimate NORMAL Platelet Morphology Comment NORMAL Sodium Level 135 Potassium Level 3.5 Chloride Level 102 Carbon Dioxide Level 26.4 Anion Gap 7 Blood Urea Nitrogen 6 Creatinine 0.50 Estimat Glomerular Filtration 171 Rate Random Glucose 79 Calcium Level 8.3 Human Chorionic Gonadotropin, LESS THAN 1 Quant Blood Type A POSITIVE Antibody Screen POSITIVE Prothrombin Time 11.3 Prothromb Time International 1.0 Ratio Activated Partial 25.1 Thromboplast Time Crossmatch Leukocyte-Reduced Red Blood Cells Blood Bank Comment (Rebeca Méndez MD R1) Result Diagram: 10/18/16 1511 10/18/16 1511 Assessment and Plan Assessment and Plan 36-year-old female with long-standing history of menorrhagia who presents with severe symptomatic anemia after syncopal episode. Code Status Full Code Discussed Condition With Seen and discussed with Dr. Mayers and Dr. Mccall (Rebeca Méndez MD R1) Attending Attestation Patient seen and examined. Case reviewed and discussed with the resident team. Agree with plan of care as discussed with me and documented in the resident note. Pt seen in ED on admission (Audrey Mccall MD) Problem List: (1) Symptomatic anemia Status: Acute Plan: Patient presents with severe symptomatic anemia with hemoglobin of 5.2. In ED, patient is status post uterus normal saline and type and screen for 3 units PRBC. Etiology is menorrhagia based on patient history and multiple medical admissions with similar symptoms. She has had many transfusions in the past. Plan: - Admit to inpatient - 3 units PRBCs to be administered with posttransfusion H&H - Monitor H&H - Continue iron at home dose of 325 mg 3 times a day starting tomorrow - FIELD HOC[employer] AND LACROSSE COACH consult for assistance in medical/surgical managing as patient desires therapeutic hysterectomy - Case management consulted to help set patient up for discharge, which must include FIELD [employer] AND LACROSSE COACH evaluation for possible hysterectomy as is the only definitive treatment for patient's condition. Of note, patient was seen in hospital follow- up visit [facility] on 09/24/16; Dr. leyva shows that she was told that FIELD H[employer] AND LACROSSE COACH was not covered under patient assistance. (2) Menometrorrhagia Status: Acute Plan: Appreciate CAR CUSTOMIZER consultrecommended use of OCP with 35 mcg estrogen, 2 pills twice a day for 5 days followed by once a day dosing. However, this medication is not available in the inpatient pharmacy. Patient is not actively bleeding at this time. Plan: -Will start Premarin 2.5 mg four times per day if menstrual bleeding resumes. If this regimen is started, we will give patient medroxyprogesterone acetate ( 10 mg/day) for 10 days after the estrogen is discontinue. -The patient does not have any menstrual bleeding between now and tomorrow ( when outpatient pharmacy opens), we will attempt to obtain OCPs at that time and start patient on these. (3) Uterine fibroid Status: Acute Plan: Patient has had extensive workup in a recent hospitalization (August 2016) . At that time pelvic ultrasound and pelvic CT were performed and notable for large fibroid as well as possible bladder diverticulum. Long-standing, likely contributing to menorrhagia. Patient desires hysterectomy. Management as above. (4) Bigeminy Status: Acute Plan: Patient noted to have bigeminy on EKG upon arrival in the ED. This was also noted on her EKG in 08/2016. She also had PVCs in the past which are not noted today. Plan: -Monitor on telemetry -We will obtain echocardiogram to assess potential structural abnormalities as patient did also have syncopal episode (5) Fluids/Electrolytes/Nutrition/Prophylaxis Status: Acute Plan: Fluids: Normal saline at 110cc/hour Electrolytes: monitor and replete as needed Nutrition: heart-healthy diet DVT Prophylaxis: bilateral SCDs GI Prophylaxis: not indicated (Rebeca Méndez MD R1) Physician Certification 2 Midnight Certification Type: Admission for Inpatient Services Order for Inpatient Services The services are ordered in accordance with Medicare regulations or non- Medicare payer requirements, as applicable. In the case of services not specified as inpatient-only, they are appropriately provided as inpatient services in accordance with the 2-midnight benchmark. Estimated LOS (days): 3 days is the estimated time the patient will need to remain in the hospital, assuming treatment plan goals are met and no additional complications. Post-Hospital Plan: Home (Rebeca Méndez MD R1) Problem Qualifiers (1) Uterine fibroid: Qualified Code: D25.9 - Uterine leiomyoma, unspecified location Rebeca Méndez MD R1 Oct 18, 2016 17:51 Audrey Mccall MD October 19, 2016 11:52
[2016-10-18] MEDS ORDERED: SODIUM CHLORIDE 0.9% FLUSH 10 ML FLUSH IV FLUSH PRN (18:00)
[2016-10-18] MEDS ORDERED: NALOXONE HCL 0.4 MG/ML AMP IV PRN (18:00)
[2016-10-18] MEDS ORDERED: ONDANSETRON HCL 4 MG/2 ML VIAL IVP PRN (18:00)
[2016-10-18] MEDS ORDERED: ACETAMINOPHEN 325 MG TAB PO PRN (18:00)
--- NOTE | 2016-10-18 18:14 | PD.CONS ---
HPI Chief Complaint Abnormal uterine bleeding Date Seen: Oct 18, 2016 Time Seen: 17:30 Travel History International Travel<30 Days: No Contact w/Intl Traveler<30Days: No Known Affected Area: No History of Present Illness HPI The patient is a 36-year-old 3 para 3 status post tubal ligation who has a known significantly fibroid distorted uterus which has required hospitalization for treatment of acute anemia most recently in August 2016. At that time she responded to IV Premarin and was ultimately discharged home on 10 mg of Provera to take daily. She was seen by a non-COPY CENTER OPERATOR physician and outpatient follow-up and they recommended that she see a memorandum statement clerk. She has not been able to do that yet. The patient reports that she bled for 2 weeks in early September and then stopped until last Wednesday when her menstrual period began again and she had heavy bleeding for 4 days followed by fairly insignificant bleeding the last 48 hours. She was at work today when she began having a headache and feeling lightheaded and then had a near syncopal episode at work. He was then brought to the emergency room where she was found to have a hemoglobin of 5. Para: 3 : 3 Last Menstrual Period: Oct 10, 2016 History Past Medical History Narrative Medical Acute and chronic anemia secondary to fibroid uterus Current medications include 10 mg of Provera daily and iron 3 times a day and She is allergic to tramadol Past Surgical History Narrative Surgical 3 prior C-sections and a tubal ligation was performed at the time of her most recent Family History Family History: Negative Social History Alcohol Use: Yes Tobacco Use: Yes (she smokes 1 pack of cigarettes per week) Substance Abuse: No Allergies-Medications (Allergen,Severity, Reaction): Coded Allergies: Tramadol (Verified Allergy, Severe, Nausea/Vomiting, 09/24/16) Home Meds Reported Medications Ferrous Sulfate 325 Mg [id number] Mg PO TID #30 TAB Ref 0 09/24/16 Discontinued Scripts Medroxyprogesterone Acetate 10 Mg Tab10 Mg PO DAILY #10 TAB Ref 0 Start day 16 Prov:Alex Branch MD 09/14/16 Review of Systems ROS Limitations: Clinical Condition HENT: Headaches, Lightheadedness Cardiovascular: Palpitations Respiratory: No: Cough, Short of Breath, Wheezing, Other Gastrointestinal: No: Nausea, Vomiting, Diarrhea, Abdominal Pain, Hematemesis, Hematochezia, Constipation, Changes in Bowel Habits, Indigestion, Loss of Appetite, Other Genitourinary: Menorrhagia, Vaginal Bleeding, No: Urgency, Frequency, Dysuria , Hematuria Neurologic: Dizziness, Syncope Hematologic/Lymphatic: No Easy Bruising, No Lymph Node Enlargement, No Other Physical Exam Vital Signs Date Time Temp Pulse Resp B/P Pulse Ox O2 Delivery O2 Flow Rate FiO2 10/18/16 17:30 99.0 92 16 129/70 98 Room Air 10/18/16 17:15 98.6 88 16 120/60 100 Room Air 10/18/16 17:10 98.7 87 15 122/61 100 Room Air 10/18/16 17:05 98.6 82 15 122/60 100 Room Air 10/18/16 17:00 98.6 85 15 137/60 100 Room Air 10/18/16 15:43 83 16 100 Room Air 10/18/16 14:18 98.2 94 18 127/69 99 Narrative GENERAL: Well-nourished, well-developed patient. SKIN: Warm and dry. HEAD: Normocephalic and atraumatic. EYES: No scleral icterus. No injection or drainage. ENT: No nasal drainage noted. Mucous membranes pink. Airway patent. NECK: Supple, trachea midline. No JVD. ABDOMEN/GI: Abdomen soft, non-tender, bowel sounds present, no rebound, no guarding EXTREMITIES: No cyanosis or edema. BACK: Nontender without obvious deformity. No CVA tenderness. NEUROLOGICAL: Awake and alert. Motor and sensory grossly within normal limits. Five out of 5 muscle strength in all muscle groups. Normal speech. Data Data Vital Signs Reviewed: Yes Orders Iv Access Insert/Monitor (10/18/16 15:03) Complete Blood Count With Diff (10/18/16 15:03) Basic Metabolic Panel (Bmp) (10/18/16 15:03) Beta Hcg (Quant/Titer) (10/18/16 15:03) Type And Screen (10/18/16 15:03) Electrocardiogram (10/18/16 ) Supervisor Lime / Telemetry UMESH.Q8H (10/18/16 15:03) Prothrombin Time / Inr (Pt) (10/18/16 15:15) Act Partial Throm Time (Ptt) (10/18/16 15:15) Sodium Chlor 0.9% 1000 Ml Inj (Ns 1000 M (10/18/16 15:30) Red Blood Cells (Rbc) (10/18/16 16:19) Blood Product Administration .UPON TRANSFUSION (10/18/16 16:19) Sodium Chlor 0.9% 250 Ml Inj (Ns 250 Ml (10/18/16 16:30) Admit Order (Ed Use Only) (10/18/16 16:48) Echo 2d Comp W/Dopp(Routine) (10/18/16 ) Admit To Inpatient (10/18/16 ) Code Status (10/18/16 17:46) Vital Signs (Adult) Q4H (10/18/16 17:46) Activity Oob With Assistance (10/18/16 17:46) Supervisor Lime / Telemetry .CONTINUOUS (10/18/16 17:46) Intake + Output UMESH.QSHIFT (10/18/16 17:46) Diet Regular Basic (10/18/16 Dinner) Sodium Chlor 0.9% 1000 Ml Inj (Ns 1000 M (10/18/16 17:46) Sodium Chloride 0.9% Flush (Ns Flush) (10/18/16 18:00) Sodium Chloride 0.9% Flush (Ns Flush) (10/18/16 21:00) Acetaminophen (Tylenol) (10/18/16 18:00) Ondansetron Inj (Zofran Inj) (10/18/16 18:00) Comprehensive Metabolic Panel (10/19/16 06:00) Complete Blood Count With Diff (10/19/16 06:00) Resp Oxygen Regan C Titrat 1-4 L (10/18/16 ) Pt Request For Service (10/18/16 17:46) Case Management Consult (10/18/16 17:46) Scd Bilateral/Knee High UMESH.BID (10/18/16 17:46) Pharmacologic Contraindication (10/18/16 17:46) Naloxone Inj (Narcan Inj) (10/18/16 18:00) ^ Fall Precautions (10/18/16 17:46) Inpatient Certification (10/18/16 ) Consult Gynecology (10/18/16 ) Labs Laboratory Tests Test 10/18/16 10/18/16 10/18/16 15:11 15:30 16:26 White Blood Count 8.2 Red Blood Count 2.91 Hemoglobin 5.2 Hematocrit 18.1 Mean Corpuscular Volume 62.2 Mean Corpuscular Hemoglobin 18.0 Mean Corpuscular Hemoglobin 28.9 Concent Red Cell Distribution Width 27.4 Platelet Count 418 Mean Platelet Volume 7.4 Neutrophils (%) (Auto) 68.8 Lymphocytes (%) (Auto) 17.3 Monocytes (%) (Auto) 8.8 Eosinophils (%) (Auto) 4.9 Basophils (%) (Auto) 0.2 Neutrophils # (Auto) 5.7 Lymphocytes # (Auto) 1.4 Monocytes # (Auto) 0.7 Eosinophils # (Auto) 0.4 Basophils # (Auto) 0.0 CBC Comment AUTO DIFF Differential Comment AUTO DIFF CONFIRMED Platelet Estimate NORMAL Platelet Morphology Comment NORMAL Sodium Level 135 Potassium Level 3.5 Chloride Level 102 Carbon Dioxide Level 26.4 Anion Gap 7 Blood Urea Nitrogen 6 Creatinine 0.50 Estimat Glomerular Filtration 171 Rate Random Glucose 79 Calcium Level 8.3 Human Chorionic Gonadotropin, LESS THAN 1 Quant Blood Type A POSITIVE Antibody Screen POSITIVE Prothrombin Time 11.3 Prothromb Time International 1.0 Ratio Activated Partial 25.1 Thromboplast Time Crossmatch Leukocyte-Reduced Red Blood Cells Blood Bank Comment MDM Medical Record Reviewed: Yes Narrative Course / MDM Assessment: Abnormal uterine bleedingfibroid, acute anemia. Her bleeding at this time is fairly minimal but has been substantial as recently as 48 hours ago. Plan: The patient is being admitted by the Hospital medicine service for treatment of hypovolemia. I would recommend implementing an oral contraceptive with 35 g of estrogen twice daily for 5 days followed by daily administration of active pills only. The patient should discard the placebos and have no pill free days. I have spoken with Dr. Levine at [facility] and she agrees to see this patient in outpatient follow-up after her release from the hospital. Admitting diagnosis: symtpomatic anemia,syncope,menorrhagia Condition: Stable Owen Echeverria MD Oct 18, 2016 18:14
[2016-10-18] MEDS ORDERED: MORPHINE SULFATE 4 MG/ML INJ IV PRN (18:45)
[2016-10-18] MEDS ORDERED: oxyCODONE/ACETAMINOPHEN 10 MG/325 MG TAB PO PRN (18:45)
[2016-10-18] MEDS ORDERED: cloNIDine HCL 0.1 MG TAB PO PRN (18:45)
[2016-10-18] MEDS ORDERED: IBUPROFEN 400 MG TAB PO PRN (18:45)
[2016-10-18] MEDS ORDERED: oxyCODONE/ACETAMINOPHEN 5 MG/325 MG TAB PO PRN (18:45)
[2016-10-18] MEDS ORDERED: FUROSEMIDE 20 MG/2 ML VIAL IV PUSH ONE (19:00)
[2016-10-18] MEDS: SODIUM CHLORIDE 0.9% FLUSH 10 ML FLUSH IV FLUSH SCH (21:00)
[2016-10-18] MEDS: SODIUM CHLOR 0.9% 1000 ML INJ 1,000 ML IV SCH (23:26)
[2016-10-19 00:40] VITALS: PULSE 75
[2016-10-19 00:57] LABS: HEMATOCRIT 27.8 % (35.0-46.0)
[2016-10-19 01:13] LABS: REVIEW FLAG FINAL
[2016-10-19 01:19] VITALS: BP 109/57; PULSE 67; RESP 17; TEMP 97.8; O2SAT 98
[2016-10-19] MEDS: SODIUM CHLOR 0.9% 1000 ML INJ 1,000 ML IV SCH ×2 (01:48→12:22)
[2016-10-19 05:27] VITALS: BP 113/72; PULSE 69; RESP 20; TEMP 97.4; O2SAT 100
[2016-10-19 08:00] VITALS: BP 116/66; PULSE 73; RESP 18; TEMP 97.8; O2SAT 100
[2016-10-19] MEDS: FERROUS SULFATE 325 MG (65 MG ELEMENTAL IRON) TAB PO SCH ×2 (08:38→12:22)
[2016-10-19] MEDS: SODIUM CHLORIDE 0.9% FLUSH 10 ML FLUSH IV FLUSH SCH (08:38)
[2016-10-19 10:08] LABS: AUTOMATED NEUTROPHIL # 4.6 TH/MM3 (1.8-7.7); BASOPHIL % 0.5 % (0.0-2.0); EOSINOPHIL # 0.4 TH/MM3 (0-0.4); EOSINOPHIL % 5.4 % (0.0-4.0); LYMPH % 28.2 % (9.0-44.0); LYMPHOCYTE # 2.2 TH/MM3 (1.0-4.8); MEAN CELL VOLUME 70.8 FL (80.0-100.0); MEAN CORPUSCULAR HEMOGLOBIN 22.5 PG (27.0-34.0); MEAN CORPUSCULAR HGB CONC 31.7 % (32.0-36.0); MONO % 8.6 % (0.0-8.0); NEUT % 57.3 % (16.0-70.0); PLATELET COUNT 381 TH/MM3 (150-450); RED BLOOD COUNT 3.95 MIL/MM3 (4.00-5.30); RED CELL DISTRIBUTION WIDTH 28.7 % (11.6-17.2)
[2016-10-19 10:12] LABS: HEMO FLAGS AUTO DIFF
[2016-10-19 10:40] LABS: ALT (GPT) 10 U/L (10-53); ANION GAP 6 MEQ/L (5-15); AST (GOT) 15 U/L (15-37); BICARBONATE 26.9 MEQ/L (21.0-32.0); BLOOD UREA NITROGEN 4 MG/DL (7-18); CHLORIDE 105 MEQ/L (98-107); GLOMERULAR FILTRATION RATE 171 ML/MIN (>89); POTASSIUM 3.7 MEQ/L (3.5-5.1); SODIUM (NA) 138 MEQ/L (136-145)
[2016-10-19 10:43] LABS: ALKALINE PHOSPHATASE 74 U/L (45-117); TOTAL BILIRUBIN ADULT 0.6 MG/DL (0.2-1.0)
[2016-10-19 10:48] LABS: SCAN/DIFF AUTO DIFF CONFIRMED
--- NOTE | 2016-10-19 11:33 | HHI.HP ---
HPI Service Family Medicine Primary Care Physician No Primary Care Physician Admission Diagnosis symtpomatic anemia,syncope,menorrhagia Diagnoses: (1) Symptomatic anemia Diagnosis: Principal (2) Menometrorrhagia Diagnosis: Principal (3) Uterine fibroid Diagnosis: Principal (4) Bigeminy Diagnosis: Principal (5) Fluids/Electrolytes/Nutrition/Prophylaxis Diagnosis: Principal International Travel<30 Days: No Contact w/Intl Traveler<30days: No Known Affected Area: No History of Present Illness Ms Seth is a 36-year-old female with a history of fibroids, iron deficiency anemia and menorrhagia who presented for syncopal episode at work. She states that she has not had a syncopal episode in years but has a long -standing history of anemia related to menorrhalgia. She notes that she has been feeling bad since Wednesday . 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 She tried to walk to get water but passed out for unknown length of time. She does note that she hit her head on the floor but does not know where. When she woke up her coworkers had alerted EMS. She has not had syncope recently and has never had any seizures denies bowel or bladder incontinence during her episode today. Denies chest pain or recent illnesses but does endorse some shortness of breath. She has a long-standing history of menometrorrhagia and she states that she just finished having a menstrual period. They're always heavy and the most recent period was not continuous but was "on and off" with heavy periods some days and no periods some days. She is nonspecific about how long each period lasts but does state that they last sometimes up to a month at a time and that she uses 67 super absorbency tampons in a half day. She had a 4 day hospital stay in August 2016 for menorrhagia at which time she received IV Premarin and was discharged with medroxyprogesterone acetate prevent overgrowth of the uterine lining. She was given a 5 day supply of this medication. She has no PCP and has gone through multiple avenues trying to get set up for hysterectomy as outpatient. She has been seen as an inpatient for multiple blood transfusions. She has been taking iron pills daily. On review of systems, she endorses feeling very tired and having a headache most prominent in the occipital and temporal regions on admission but better today. She is able to walk well and feels much stronger after her 4 units of blood. Review of Systems Other Constitutional: COMPLAINS OF: Dizziness, DENIES: Fever, Weight loss, Chills, Change in appetite Endocrine: COMPLAINS OF: Abnorml menstrual pattern Eyes: DENIES: Blurred vision, Diplopia, Vision loss Ears, nose, mouth, throat: DENIES: Tinnitus, Hearing loss, Vertigo, Throat pain , Epistaxis Respiratory: DENIES: Cough, Wheezing, Hemoptysis Cardiovascular: COMPLAINS OF: Syncope, DENIES: Chest pain, Lower Extremity Edema Gastrointestinal: DENIES: Black stools, Bloody stools, Constipation, Diarrhea, Nausea, Vomiting Genitourinary: COMPLAINS OF: Abnormal vaginal bleeding, DENIES: Dysmenorrhea, Urinary frequency, Urgency, Hematuria, Dysuria, Vaginal discharge Musculoskeletal: COMPLAINS OF: Muscle aches Integumentary: DENIES: Abnormal pigmentation, Pruritus, Nail changes Hematologic/lymphatic: DENIES: Bruising Neurologic: DENIES: Abnormal gait, Localized weakness Psychiatric: DENIES: Anxiety, Depression Past Family Social History Past Medical History Iron deficiency Anemia 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 had medicaid in the past as well lost her job because of her bleeding, weakness and need for hospitalizations but just started at [facility] Physical Exam Vital Signs Vital Signs Date Time Temp Pulse Resp B/P Pulse Ox O2 Delivery O2 Flow Rate FiO2 10/19/16 08:00 97.8 73 18 116/66 100 10/19/16 05:27 97.4 69 20 113/72 100 10/19/16 01:19 97.8 67 17 109/57 98 10/19/16 00:40 75 10/18/16 21:50 82 20 112/55 100 10/18/16 21:31 97.8 78 20 116/62 100 10/18/16 20:11 98.0 85 20 123/63 100 10/18/16 19:35 98.0 82 20 121/76 100 10/18/16 18:37 98.8 92 16 122/86 100 10/18/16 18:00 98.8 94 16 125/72 100 Room Air 10/18/16 17:30 99.0 92 16 129/70 98 Room Air 10/18/16 17:15 98.6 88 16 120/60 100 Room Air 10/18/16 17:10 98.7 87 15 122/61 100 Room Air 10/18/16 17:05 98.6 82 15 122/60 100 Room Air 10/18/16 17:00 98.6 85 15 137/60 100 Room Air 10/18/16 15:43 83 16 100 Room Air 10/18/16 14:18 98.2 94 18 127/69 99 Physical Exam GENERAL: Patient is a soft spoken -Indian female lying in bed. She is in no apparent distress except some frustration over her situation with the constant bleeding and inability to have any surgery to fix the problem SKIN: Warm and dry. No obvious rashes HEAD: Atraumatic. Normocephalic. EYES: Pupils equal and round. No scleral icterus. No injection or drainage. Conjunctival pallor noted but mild, better today than yesterday ENT: No nasal bleeding or discharge. Mucous membranes pink and moist. NECK: Trachea midline. No JVD. Full range of motion noted all along cervical spine CARDIOVASCULAR: Regular rate and rhythm. Systolic ejection murmur noted initially. RESPIRATORY: No accessory muscle use. Clear to auscultation. Breath sounds equal bilaterally. GASTROINTESTINAL: Bowel sounds hypoactive. Abdomen soft, non-tender, nondistended. Hepatic and splenic margins not palpable. MUSCULOSKELETAL: Extremities without clubbing, cyanosis, or edema. No obvious deformities. NEUROLOGICAL: Awake and alert. No obvious cranial nerve deficits. Motor grossly within normal limits. Five out of 5 muscle strength in the arms and legs. Normal speech. PSYCHIATRIC: Appropriate mood and affect; insight and judgment normal. Laboratory Laboratory Tests Test 10/18/16 10/18/16 10/18/16 10/19/16 15:11 15:30 16:26 00:30 White Blood Count 8.2 Red Blood Count 2.91 Hemoglobin 5.2 8.7 Hematocrit 18.1 27.8 Mean Corpuscular Volume 62.2 Mean Corpuscular Hemoglobin 18.0 Mean Corpuscular Hemoglobin 28.9 Concent Red Cell Distribution Width 27.4 Platelet Count 418 Mean Platelet Volume 7.4 Neutrophils (%) (Auto) 68.8 Lymphocytes (%) (Auto) 17.3 Monocytes (%) (Auto) 8.8 Eosinophils (%) (Auto) 4.9 Basophils (%) (Auto) 0.2 Neutrophils # (Auto) 5.7 Lymphocytes # (Auto) 1.4 Monocytes # (Auto) 0.7 Eosinophils # (Auto) 0.4 Basophils # (Auto) 0.0 CBC Comment AUTO DIFF Differential Comment AUTO DIFF CONFIRMED Platelet Estimate NORMAL Platelet Morphology Comment NORMAL Sodium Level 135 Potassium Level 3.5 Chloride Level 102 Carbon Dioxide Level 26.4 Anion Gap 7 Blood Urea Nitrogen 6 Creatinine 0.50 Estimat Glomerular Filtration 171 Rate Random Glucose 79 Calcium Level 8.3 Human Chorionic Gonadotropin, LESS THAN 1 Quant Blood Type A POSITIVE Antibody Screen POSITIVE Prothrombin Time 11.3 Prothromb Time International 1.0 Ratio Activated Partial 25.1 Thromboplast Time Crossmatch Leukocyte-Reduced Red Blood Cells Blood Bank Comment Test 10/19/16 09:16 White Blood Count 8.0 Red Blood Count 3.95 Hemoglobin 8.9 Hematocrit 28.0 Mean Corpuscular Volume 70.8 Mean Corpuscular Hemoglobin 22.5 Mean Corpuscular Hemoglobin 31.7 Concent Red Cell Distribution Width 28.7 Platelet Count 381 Mean Platelet Volume 7.5 Neutrophils (%) (Auto) 57.3 Lymphocytes (%) (Auto) 28.2 Monocytes (%) (Auto) 8.6 Eosinophils (%) (Auto) 5.4 Basophils (%) (Auto) 0.5 Neutrophils # (Auto) 4.6 Lymphocytes # (Auto) 2.2 Monocytes # (Auto) 0.7 Eosinophils # (Auto) 0.4 Basophils # (Auto) 0.0 CBC Comment AUTO DIFF Differential Comment AUTO DIFF CONFIRMED Sodium Level 138 Potassium Level 3.7 Chloride Level 105 Carbon Dioxide Level 26.9 Anion Gap 6 Blood Urea Nitrogen 4 Creatinine 0.50 Estimat Glomerular Filtration 171 Rate Random Glucose 85 Calcium Level 8.2 Total Bilirubin 0.6 Aspartate Amino Transf 15 (AST/SGOT) Alanine Aminotransferase 10 (ALT/SGPT) Alkaline Phosphatase 74 Total Protein 6.9 Albumin 2.7 Result Diagram: 10/19/1691510/19/1616 Assessment and Plan Assessment and Plan 36-year-old female with long-standing history of menorrhagia who presented with severe symptomatic anemia after syncopal episode. She should be able to go home soon as she is better after the transfusion. Hope she can get Insurance which will cover hysterectomy or ablation Problem List: (1) Symptomatic anemia Status: Acute Plan: Patient presented with severe symptomatic anemia with hemoglobin of 5.2. In ED, patient is status post normal saline and type and screened for 4 units PRBC. Etiology is menorrhagia based on patient history and multiple medical admissions with similar symptoms. She has had many transfusions in the past. Plan: - Admitted to inpatient - 3-4 units PRBCs to be administered with posttransfusion H&H - Monitor H&H - Continue iron at home dose of 325 mg 3 times a day - EXPLOSIVES OPERATOR consult for assistance in medical/surgical managing as patient desires therapeutic hysterectomy - Case management consulted to help set patient up for discharge, which must include EXPLOSIVES OPERATOR evaluation for possible hysterectomy as is the only definitive treatment for patient's condition. Of note, patient was seen in hospital follow- up visit [facility] on [facility]24[facility]16; Drs notes shows that she was told that EXPLOSIVES OPERATOR was not covered under patient assistance with the blue card. -asked case management to give her the number for medicaid, she applied last hospitalization and it can take 45 days to get approved. -[facility] to [facility] those with no insurance to see if she can get help there (2) Menometrorrhagia Status: Acute Plan: Appreciate INSPECTOR FILTER TIP consultrecommended use of OCP with 35 mcg estrogen, 2 pills twice a day for 5 days followed by once a day dosing. However, this medication is not available in the inpatient pharmacy. Patient is not actively bleeding at this time. Plan: -Will start Premarin 2.5 mg four times per day if menstrual bleeding resumes. If this regimen is started, we will give patient medroxyprogesterone acetate ( 10 mg/day) for 10 days after the estrogen is discontinue. -The patient did not have any menstrual bleeding between now and tomorrow (when outpatient pharmacy opens), we will attempt to obtain OCPs now and start patient on these. (3) Uterine fibroid Status: Acute Plan: Patient has had extensive workup in a recent hospitalization (August 2016) . At that time pelvic ultrasound and pelvic CT were performed and notable for large fibroid as well as possible bladder diverticulum. Long-standing, likely contributing to menorrhagia. Patient desires hysterectomy. Management as above. (4) Bigeminy Status: Acute Plan: Patient noted to have bigeminy on EKG upon arrival in the ED. This was also noted on her EKG in 08/2016. She also had PVCs in the past which are not noted today. Plan: -Monitor on telemetry -We will obtain echocardiogram to assess potential structural abnormalities as patient did also have syncopal episode -bigeminy carries no adverse prognosis as long as there is no structural heart disease (5) Fluids/Electrolytes/Nutrition/Prophylaxis Status: Acute Plan: Fluids: Normal saline at 110cc/hour Electrolytes: monitor and replete as needed Nutrition: heart-healthy diet DVT Prophylaxis: bilateral SCDs GI Prophylaxis: not indicated Problem Qualifiers (1) Uterine fibroid: Qualified Code: D25.9 - Uterine leiomyoma, unspecified location Audrey Mccall MD October 19, 2016 11:33
[2016-10-19 12:00] VITALS: BP 127/76; PULSE 70; RESP 18; TEMP 98.2; O2SAT 99
[2016-10-19] MEDS ORDERED: IBUP400T20 PO (12:00)
[2016-10-19] MEDS ORDERED: ACET325T PO (12:00)
[2016-10-19] MEDS ORDERED: SPRI28TA PO (12:00)
[2016-10-19] MEDS ORDERED: FERR325T PO (12:00)
--- NOTE | 2016-10-19 12:02 | HHI.DCPOC ---
Discharge Care Plan Diagnosis: (1) Menorrhagia (2) Anemia (3) Syncope Goals to Promote Your Health * To prevent worsening of your condition and complications * To maintain your health at the optimal level Directions to Meet Your Goals Take your medications as prescribed Follow your dietary instruction Follow activity as directed Keep your appointments as scheduled Take your immunizations and boosters as scheduled If your symptoms worsen call your PCP, if no PCP go to Urgent Care Center or Emergency Room Smoking is Dangerous to Your Health. Avoid second hand smoke Call the 24-hour hour crisis hotline for domestic abuse at Rebeca Méndez MD R1 October 19, 2016 12:02
--- NOTE | 2016-10-19 21:02 | EC ---
Study Study Date:10/19/2016 STUDY CONCLUSIONS SUMMARY - Left ventricle: The cavity size was normal. Wall thickness was normal. Systolic function was normal. The estimated ejection fraction was 65%. Wall motion was normal; there were no regional wall motion abnormalities. - Aortic valve: Trace regurgitation. - Tricuspid valve: Mild regurgitation. If LV function is below 40, please consider prescribing an ACEI or ARB or document rationale for non-use. PROCEDURE DATA STUDY STATUS: Elective. Procedure: Transthoracic echocardiography. Image quality was good. Scanning was performed from the parasternal, apical, and subcostal acoustic windows. Study completion: The patient tolerated the procedure well. Transthoracic echocardiography. M-mode, complete 2D, complete spectral Doppler, and color Doppler. Height: Height: 63in. Weight: Weight: 151.7lb. Body mass index: BMI: 26.9kg/m^2. Body surface area: BSA: 1.72m^2. Patient status: Inpatient. CARDIAC ANATOMY LEFT VENTRICLE: The cavity size was normal. Wall thickness was normal. Systolic function was normal. The estimated ejection fraction was 65%. Wall motion was normal; there were no regional wall motion abnormalities. AORTIC VALVE: Trileaflet; normal thickness leaflets. Doppler: Transvalvular velocity was within the normal range. There was no stenosis. Trace regurgitation. Valve area: 1.27cm^2(VTI). Indexed valve area: 0.74cm^2/m^2 (VTI). Valve area: 1.33cm^2 (Vmax). Indexed valve area: 0.77cm^2/m^2 (Vmax). Mean gradient: 6mm Hg (S). Peak gradient: 12mm Hg (S). AORTA: Aortic root: The aortic root was normal in size. MITRAL VALVE: Structurally normal valve. Doppler: Transvalvular velocity was within the normal range. There was no evidence for stenosis. Trace regurgitation. Peak gradient: 4mm Hg (D). LEFT ATRIUM: The atrium was normal in size. RIGHT VENTRICLE: The cavity size was normal. Wall thickness was normal. PULMONIC VALVE: Doppler: Transvalvular velocity was within the normal range. There was no evidence for stenosis. No regurgitation. TRICUSPID VALVE: Structurally normal valve. Doppler: Transvalvular velocity was within the normal range. Mild regurgitation. PULMONARY ARTERY: The main pulmonary artery was normal-sized. Systolic pressure was within the normal range. RIGHT ATRIUM: The atrium was normal in size. PERICARDIUM: There was no pericardial effusion. SYSTEMIC VEINS: Inferior vena cava: The vessel was normal in size. Patient weight: 151.7lb _Ejection fraction:_ 65-75% _Fractional shortening:_ 32% up to 5Kg 5-11.5Kg 11.6-22.9Kg 23-45Kg 45-57Kg Aortic Root 7-13 <17 13-22 17-27 17-27 LA diam 6-13 <23 24-38 33-47 37-40 RVID 10-17 7-15 7-15 7-18 8-17 LVIDd 12-22 <32 24-38 33-47 37-40 LVPW 2-4 3-6 5-7 6-8 7-8 IVS 2-4 3-6 5-7 6-8 7-8 BASIC MEASUREMENTS ADULT NORMAL Left ventricle LV internal dimension, ED, chordal 50.9 mm 43-52 level, PLAX LV internal dimension, ES, chordal 35.2 mm 23-38 level, PLAX Fractional shortening, chordal level, 31 % >29 PLAX LV posterior wall thickness, ED 7.78 mm IVS/LVPW ratio, ED 1 <1.3 Ventricular septum Septal thickness, ED 7.75 mm Aortic valve Leaflet separation 20 mm 15-26 Aorta Root diameter, ED 30 mm Right ventricle RV internal dimension, ED, PLAX 27.2 mm 19-38 BASIC MEASUREMENTS ADULT NORMAL Aortic valve Leaflet separation 20 mm 15-26 DOPPLER MEASUREMENTS ADULT NORMAL Aortic valve Peak velocity, S 172 cm/s Mean velocity, S 107 cm/s VTI, S 33.2 cm Mean gradient, S 6 mm Hg Peak gradient, S 12 mm Hg Valve area, VTI 1.27 cm^2 Valve area index, VTI 0.74 cm^2/m^2 Valve area, Vmax 1.33 cm^2 Valve area index, Vmax 0.77 cm^2/m^2 Mitral valve Peak E-wave velocity 96.7 cm/s Peak A-wave velocity 76 cm/s Deceleration time 183 ms 150-230 Peak gradient, D 4 mm Hg Peak E/A ratio 1.3 Tricuspid valve Regurgitant peak velocity 242 cm/s Peak RV-RA gradient, S 23 mm Hg Maximal regurgitant velocity 242 cm/s Pulmonic valve Peak velocity, S 74.4 cm/s LEGEND: Mean values are shown as u=mean value. Asterisk (*) [place] values outside specified normal range. Prepared and signed by Kvng Miller [id number]
--- NOTE | 2016-10-19 23:05 | EKG ---
Date Performed: 10/18/2016 Time Performed: 15:09:28 PTAGE: 36 years EKG: Sinus rhythm WITH FREQUENT VENTRICULAR PREMATURE COMPLEXES IN A BIGEMINAL PATTERN ABNORMAL RHYTHM ECG NO PREVIOUS TRACING DOCTOR: Johnny Martinez Interpretating Date/Time 10/19/2016 23:02:42
--- NOTE | 2016-10-20 11:04 | HHI.PR ---
Addendum to Inpatient Note Addendum Reason: Additional Documentation Additional Information Patient was discharged 10/19, and was called at home number documented in emr ) to notify her of echo results, which are grossly unremarkable. She has not acute clinical changes. She was again instructed to follow-up as outpatient. Rebeca Méndez MD R1 October 20, 2016 11:04
== END 2016-10-19 16:05 | disposition home or self-care (01) | DRG 812 ==
LOC: NEPC 14:16 → NEDA 16:50 → N05B 18:40
PROVIDERS: ADMIT Family Medicine; ATTEND Family Medicine
PROC: 30233N1 Transfusion of Nonautologous Red Blood Cells into Peripheral Vein, Percutaneous Approach (ICD-10-PCS; principal; 2016-10-18)
DX: D62 Acute posthemorrhagic anemia (principal); R55 Syncope and collapse; D25.9 Leiomyoma of uterus, unspecified; D50.0 Iron deficiency anemia secondary to blood loss (chronic); N92.1 Excessive and frequent menstruation with irregular cycle; R00.8 Other abnormalities of heart beat; E86.1 Hypovolemia; F17.210 Nicotine dependence, cigarettes, uncomplicated; Z88.6 Allergy status to analgesic agent
CPT/HCPCS: 36430; 80048; 80053; 84702; 85014; 85018; 85025; 85610; 85730; 86850; 86900; 86901; 86902; 86920; 86922; 93005; 93306; 96360; J1940; J7030; J7050; P9016

== ENCOUNTER 2016-11-14 12:27 | Emergency (ER) | payer MEDICAID ==
[~2016-11-14] VITALS: Ht 160 cm; Wt 68.0 kg
[~2016-11-14 12:27] MED LIST changes: +ACET325T PO; +IBUP400T20 PO; -MEDR10TA7 PO; +SPRI28TA PO
[2016-11-14 12:29] VITALS: BP 143/73; PULSE 51; RESP 16; TEMP 98.2; O2SAT 99
[2016-11-14] MEDS ORDERED: SODIUM CHLOR 0.9% 1000 ML INJ 1,000 ML IV ONE ×2 (12:47→13:45)
--- NOTE | 2016-11-14 12:55 | PD ---
HPI Chief Complaint: Syncope/Near-Syncope Time Seen by Provider: 12:51 Travel History International Travel<30 days: No Contact w/Intl Traveler<30days: No Traveled to known affect area: No History of Present Illness HPI 36-year-old female with history of uterine fibroids and iron deficiency anemia presents to the ED for evaluation of 4 day history of weakness, dizziness, dyspnea on exertion and nausea. She endorses chills and menstrual cramping. She denies fever, cough, palpitations, changes in appetite, melena, hematochezia. Patient states that she is currently menstruating, symptoms are similar to earlier episodes of anemia. She endorses compliance with daily iron supplementation. She states that she attempted to follow-up with the land development manager after her last admission but was unable to due to insurance reasons. PFSH Past Medical History Anemia: Yes Cancer: No Cardiovascular Problems: Yes Diminished Hearing: No Endocrine: No Genitourinary: No Immune Disorder: No Musculoskeletal: No Neurologic: No Psychiatric: No Reproductive: Yes (heavy menstration) Respiratory: No Immunizations Current: Yes Migraines: Yes ?: Not LMP: 11/07/16 Tubal Ligation: Yes Past Surgical History Section: Yes (X3) Gynecologic Surgery: Yes ( section x3) Other Surgery: Yes Family History Family Hypercholesterolemia: Yes Social History Alcohol Use: Yes Tobacco Use: Yes (she smokes 1 pack of cigarettes per week) Substance Use: Yes (marijuana a month ago) Allergies-Medications (Allergen,Severity, Reaction): Coded Allergies: Tramadol (Verified Allergy, Severe, Nausea/Vomiting, 09/24/16) Reported Meds & Prescriptions Reported Meds & Active Scripts Active Bactrim DS (Sulfamethoxazole-Trimethoprim) 800-160 Mg Tab 1 Tab PO BID Ibuprofen 400 Mg Tab 400 Mg PO Q6H PRN Acetaminophen 325 Mg Tab 650 Mg PO Q4H PRN Sprintec 28 (Norgestimate-Ethinyl Estradiol) 0.25-35 mg-Mcg Tab 2 Tab PO DAILY Take 1 tab every 12 hours for 5 days (10 pills), then take 1 active pill daily. Do not take the inactive pills. Ferrous Sulfate 325 Mg Tab 325 Mg PO TID Review of Systems Except as stated in HPI: all other systems reviewed are Neg Physical Exam Narrative GENERAL: Well-nourished, well-developed nontoxic-appearing black female in no acute distress. SKIN: Focused skin assessment warm/dry. HEAD: Normocephalic. EYES: No scleral icterus. No injection or drainage. NECK: Supple, trachea midline. No JVD or lymphadenopathy. CARDIOVASCULAR: Regular rate and rhythm without murmurs, gallops, or rubs. RESPIRATORY: Breath sounds clear and equal bilaterally. No accessory muscle use. GASTROINTESTINAL: Abdomen soft, non-tender, nondistended. Active bowel sounds. MUSCULOSKELETAL: No cyanosis, or edema. The patient is ambulatory and moves the extremities spontaneously. BACK: Nontender without obvious deformity. No CVA tenderness. Data Data Last Documented VS Vital Signs Date Time Temp Pulse Resp B/P Pulse Ox O2 Delivery O2 Flow Rate FiO2 11/14/16 14:06 64 18 155/67 97 Room Air 11/14/16 12:29 98.2 Orders Electrocardiogram (11/14/16 ) Ed Urine Pregnancytest Poc (11/14/16 12:47) Complete Blood Count With Diff (11/14/16 12:47) Comprehensive Metabolic Panel (11/14/16 12:47) Magnesium (Mg) (11/14/16 12:47) Ckmb (Isoenzyme) Profile (11/14/16 12:47) Troponin I (11/14/16 12:47) Act Partial Throm Time (Ptt) (11/14/16 12:47) Prothrombin Time / Inr (Pt) (11/14/16 12:47) Urinalysis - C+S If Indicated (11/14/16 12:47) Chest, Single Ap (11/14/16 12:47) Ecg Monitoring (11/14/16 12:47) Iv Access Insert/Monitor (11/14/16 12:47) Oximetry (11/14/16 12:47) Sodium Chloride 0.9% Flush (Ns Flush) (11/14/16 13:00) Sodium Chlor 0.9% 1000 Ml Inj (Ns 1000 M (11/14/16 12:47) Sodium Chlor 0.9% 1000 Ml Inj (Ns 1000 M (11/14/16 13:45) Urine Culture (11/14/16 14:15) Labs Laboratory Tests Test 11/14/16 11/14/16 12:50 14:15 White Blood Count 7.9 TH/MM3 Red Blood Count 4.07 MIL/MM3 Hemoglobin 9.7 GM/DL Hematocrit 29.4 % Mean Corpuscular Volume 72.3 FL Mean Corpuscular Hemoglobin 23.9 PG Mean Corpuscular Hemoglobin 33.0 % Concent Red Cell Distribution Width 26.4 % Platelet Count 419 TH/MM3 Mean Platelet Volume 7.3 FL Neutrophils (%) (Auto) 52.1 % Lymphocytes (%) (Auto) 28.9 % Monocytes (%) (Auto) 11.6 % Eosinophils (%) (Auto) 7.0 % Basophils (%) (Auto) 0.4 % Neutrophils # (Auto) 4.1 TH/MM3 Lymphocytes # (Auto) 2.3 TH/MM3 Monocytes # (Auto) 0.9 TH/MM3 Eosinophils # (Auto) 0.6 TH/MM3 Basophils # (Auto) 0.0 TH/MM3 CBC Comment AUTO DIFF Differential Comment AUTO DIFF CONFIRMED Prothrombin Time 11.1 SEC Prothromb Time International 1.0 RATIO Ratio Activated Partial 25.5 SEC Thromboplast Time Sodium Level 141 MEQ/L Potassium Level 3.9 MEQ/L Chloride Level 105 MEQ/L Carbon Dioxide Level 26.7 MEQ/L Anion Gap 9 MEQ/L Blood Urea Nitrogen 10 MG/DL Creatinine 0.51 MG/DL Estimat Glomerular Filtration 167 ML/MIN Rate Random Glucose 85 MG/DL Calcium Level 8.1 MG/DL Magnesium Level 2.2 MG/DL Total Bilirubin 0.2 MG/DL Aspartate Amino Transf 12 U/L (AST/SGOT) Alanine Aminotransferase 13 U/L (ALT/SGPT) Alkaline Phosphatase 77 U/L Total Creatine Kinase 58 U/L Troponin I LESS THAN 0.02 NG/ML Total Protein 7.1 GM/DL Albumin 2.8 GM/DL Urine Color YELLOW Urine Turbidity CLEAR Urine pH 6.0 Urine Specific [place] 1.022 Urine Protein TRACE mg/dL Urine Glucose (UA) NEG mg/dL Urine Ketones NEG mg/dL Urine Occult Blood MOD Urine Nitrite NEG Urine Bilirubin NEG Urine Urobilinogen 2.0 MG/DL Urine Leukocyte Esterase MOD Urine RBC /hpf Urine WBC 12 /hpf Urine Squamous Epithelial 1 /hpf Cells Urine Mucus FEW /lpf Microscopic Urinalysis Comment CULTURE INDICATED MDM Medical Decision Making Medical Screen Exam Complete: Yes Emergency Medical Condition: Yes Interpretation(s) Differential Diagnosis Menorrhagia versus anemia versus dehydration versus electrolyte abnormality versus near syncope versus other Narrative Course 36-year-old female with history of uterine fibroids and iron deficiency anemia presents to the ED for evaluation of 4 day history of weakness, dizziness, dyspnea on exertion and nausea. She endorses chills and menstrual cramping. She denies fever, cough, palpitations, changes in appetite, melena, hematochezia. Patient states that she is currently menstruating, symptoms are similar to earlier episodes of anemia. She endorses compliance with daily iron supplementation. Vitals reviewed. Physical exam reveals a nontoxic appearing black female in no acute distress. No appreciable M/R/G. Chest clear to auscultation bilaterally. Abdomen soft, nontender. No CVA tenderness. IV was established. Patient was placed on continuous monitoring. CBC: WBC 7.9, hemoglobin 9.7 INR: 1.0. CMP: Unremarkable UA: Moderate occult blood, moderate leukocyte esterase, 12 WBCs. Few mucus. Culture pending. EKG: Rate 79 bigeminy, PVCs. NV interval 136, QRS 98, QTC 427. Normal axis. Reviewed by Dr. Malik Patient was administered 2 L normal saline. Heart returned to sinus rhythm. I discussed the results of the workup and chronic anemia. Described Bactrim DS twice a day 7 days. I stressed the importance of taking her daily iron supplements and following up with the land development manager. Patient states that she is feeling better and is agreeable to outpatient follow-up. I encouraged her to return to the ED for worsening symptoms. She is stable and discharged home. Diagnosis Primary Impression: Urinary tract infection Qualified Code: N39.0 - Urinary tract infection without hematuria, site unspecified Additional Impression: Chronic anemia Referrals: Primary Care Physician Patient Instructions: Anemia (ED), General Instructions, Urinary Tract Infection in Women (ED) Additional Instructions: Rest, hydrate. Take all antibiotics as prescribed, even if your symptoms resolve. Resume at home medications as previously prescribed. Be sure to take all your iron supplements daily. Follow-up with your primary care provider and the land development manager as discussed. Return to the ED for any urgent or emergent medical condition. Med/Other Pt SpecificInfo: Prescription(s) given Scripts Sulfamethoxazole-Trimethoprim (Bactrim DS)800-160 Mg Tab1 Tab PO BID #14 TAB Ref 0 Prov:Kelvin Malik MD 11/14/16 Disposition: 01 DISCHARGE HOME Condition: Stable Linh Garrett November 14, 2016 12:55
[2016-11-14] MEDS ORDERED: SODIUM CHLORIDE 0.9% FLUSH 10 ML FLUSH IVF PRN (13:00)
[2016-11-14 13:17] LABS: AUTOMATED NEUTROPHIL # 4.1 TH/MM3 (1.8-7.7); BASOPHIL % 0.4 % (0.0-2.0); EOSINOPHIL # 0.6 TH/MM3 (0-0.4); HEMATOCRIT 29.4 % (35.0-46.0); LYMPH % 28.9 % (9.0-44.0); LYMPHOCYTE # 2.3 TH/MM3 (1.0-4.8); MEAN CELL VOLUME 72.3 FL (80.0-100.0); MEAN CORPUSCULAR HEMOGLOBIN 23.9 PG (27.0-34.0); MONO % 11.6 % (0.0-8.0); NEUT % 52.1 % (16.0-70.0); PLATELET COUNT 419 TH/MM3 (150-450); RED BLOOD COUNT 4.07 MIL/MM3 (4.00-5.30); RED CELL DISTRIBUTION WIDTH 26.4 % (11.6-17.2); WHITE BLOOD COUNT 7.9 TH/MM3 (4.0-11.0)
[2016-11-14 13:19] LABS: HEMO FLAGS AUTO DIFF
[2016-11-14 13:27] LABS: ALT (GPT) 13 U/L (10-53); ANION GAP 9 MEQ/L (5-15); APTT (PATIENT) 25.5 SEC (24.3-30.1); AST (GOT) 12 U/L (15-37); BICARBONATE 26.7 MEQ/L (21.0-32.0); BLOOD UREA NITROGEN 10 MG/DL (7-18); CHLORIDE 105 MEQ/L (98-107); GLOMERULAR FILTRATION RATE 167 ML/MIN (>89); MAGNESIUM 2.2 MG/DL (1.5-2.5); POTASSIUM 3.9 MEQ/L (3.5-5.1); PROTHROMBIN TIME - PATIENT 11.1 SEC (9.8-11.6); SODIUM (NA) 141 MEQ/L (136-145)
[2016-11-14 13:31] LABS: ALKALINE PHOSPHATASE 77 U/L (45-117); TOTAL BILIRUBIN ADULT 0.2 MG/DL (0.2-1.0)
[2016-11-14 13:33] LABS: CREATINE KINASE 58 U/L (26-192)
--- NOTE | 2016-11-14 13:47 | RADRPT ---
EXAM DATE/TIME: 11/14/2016 13:10 [facility] COMPARISON: CHEST SINGLE AP, September 10, 2016, 1:57. INDICATIONS : Short of breath. MEDICAL HISTORY : None. SURGICAL HISTORY : None. ENCOUNTER: Initial ACUITY: 1 day PAIN SCORE: 6/10 LOCATION: Bilateral chest FINDINGS: Portable AP view of the chest demonstrates a normal-sized cardiac silhouette. No effusion, consolidat ion, or pneumothorax is visualized. The bones and soft tissues demonstrate no acute abnormality. CONCLUSION: No acute cardiopulmonary abnormality is identified. Dariel Combs MD on November 14, 2016 at 13:45 Board Certified Radiologist. This report was verified electronically.
[2016-11-14 14:06] VITALS: BP 155/67; PULSE 64; RESP 18; O2SAT 97
[2016-11-14 14:17] LABS: SCAN/DIFF AUTO DIFF CONFIRMED
[2016-11-14 14:29] LABS: BLOOD, URINE MOD (NEG); GLUCOSE,URINE NEG (NEG); KETONE, URINE NEG (NEG); MUCUS URINE FEW /lpf (OCC); NITRITE,URINE NEG (NEG); SQUAMOUS EPITHELIAL CELL URINE 1 /hpf (0-5); URINE COLOR YELLOW (YELLW/STRAW)
[2016-11-14 14:32] LABS: COMMENT (UR) CULTURE INDICATED; CULTURE IF INDICATED CULTURE INDICATED
[2016-11-14] MEDS ORDERED: BACT800T5 PO (14:41)
--- NOTE | 2016-11-15 14:20 | EKG ---
Date Performed: 11/14/2016 Time Performed: 12:47:21 PTAGE: 36 years EKG: ECTOPIC ATRIAL RHYTHM WITH FREQUENT VENTRICULAR PREMATURE COMPLEXES IN A BIGEMINAL PATTERN MINIMAL VOLTAGE CRITERIA FOR LVH, CONSIDER NORMAL VARIANT ABNORMAL RHYTHM ECG PREVIOUS TRACING : 10/18/2016 15.09 Since previous tracing, no significant change noted DOCTOR: Dax Stapleton Interpretating Date/Time 11/15/2016 14:18:22
== END 2016-11-14 14:57 | disposition home or self-care (01) ==
LOC: NEPC 12:27
DX: N39.0 Urinary tract infection, site not specified (principal); D50.9 Iron deficiency anemia, unspecified; R42 Dizziness and giddiness; F17.210 Nicotine dependence, cigarettes, uncomplicated; F12.90 Cannabis use, unspecified, uncomplicated; R94.31 Abnormal electrocardiogram [ECG] [EKG]
CPT/HCPCS: 71010; 80053; 81001; 82550; 83735; 84484; 84703; 85025; 85610; 85730; 87086; 93005; 96360; 96361; 99285; J7030

== ENCOUNTER 2017-01-10 19:31 | Emergency (ER) | payer SELFPAY ==
[~2017-01-10] VITALS: Ht 167.6 cm; Wt 65.0 kg
[~2017-01-10 19:31] MED LIST changes: +BACT800T5 PO
[2017-01-10 19:33] VITALS: BP 129/75; PULSE 91; RESP 16; TEMP 98.9; O2SAT 100
== END 2017-01-10 21:00 | disposition left against medical advice (07) ==
LOC: NED 19:31
DX: R53.1 Weakness (principal); Z53.21 Procedure and treatment not carried out due to patient leaving prior to being seen by health care provider
CPT/HCPCS: 99281

== ENCOUNTER 2017-01-19 09:01 | Emergency (ER) | payer SELFPAY ==
[~2017-01-19] VITALS: Ht 160 cm; Wt 70.0 kg
[2017-01-19 09:04] VITALS: BP 140/78; PULSE 100; RESP 18; TEMP 98.4; O2SAT 100
[2017-01-19 09:14] VITALS: BP 125/76; PULSE 90; RESP 16; O2SAT 100
[2017-01-19] MEDS ORDERED: FERR325T8 PO (09:17)
[2017-01-19] MEDS ORDERED: SODIUM CHLOR 0.9% 1000 ML INJ 1,000 ML IV SCH (09:46)
[2017-01-19] MEDS ORDERED: SODIUM CHLORIDE 0.9% FLUSH 10 ML FLUSH IV FLUSH PRN (10:00)
[2017-01-19] MEDS ORDERED: KETOROLAC TROMETHAMINE 30 MG/ML (IVP) VIAL IVP ONE (10:00)
--- NOTE | 2017-01-19 10:29 | PD ---
HPI Chief Complaint: Flank/Kidney Pain Time Seen by Provider: 09:37 Travel History International Travel<30 days: No Contact w/Intl Traveler<30days: No Traveled to known affect area: No History of Present Illness HPI This is a 36-year-old female who presents to the emergency department with multiple complaints. She has a history of iron deficiency anemia and has required admission for blood transfusion in the past. She's been feeling weaker over the past week and has had decreased energy. In addition she reports left-sided facial swelling associated with pain in her left jaw, constant, moderate severity with no fevers. Finally over the past several days she's had left lower quadrant abdominal pain, moderate severity, constant, associated with some urinary frequency and urgency but no vaginal discharge. She denies any vaginal bleeding and doesn't think she is . She said it felt like she thought she was given a have her menstrual cycle but it never came. She's had one sexual partner in the last 6 months. She does have fibroids. PFSH Past Medical History Anemia: Yes Cancer: No Cardiovascular Problems: Yes Diminished Hearing: No Endocrine: No Genitourinary: No Immune Disorder: No Musculoskeletal: No Neurologic: No Psychiatric: No Reproductive: Yes (heavy menstration) Respiratory: No Immunizations Current: Yes Migraines: Yes Influenza Vaccination: Yes ?: Not Tubal Ligation: Yes Past Surgical History Section: Yes (X3) Gynecologic Surgery: Yes ( section x3) Other Surgery: Yes Family History Family Hypercholesterolemia: Yes Social History Alcohol Use: Yes (VERY RARELY) Tobacco Use: Yes (she smokes 1 pack of cigarettes per week) Substance Use: Yes (marijuana a month ago) Allergies-Medications (Allergen,Severity, Reaction): Coded Allergies: Tramadol (Verified Allergy, Severe, Nausea/Vomiting, 01/19/17) Reported Meds & Prescriptions Reported Meds & Active Scripts Active Ibuprofen 400 Mg Tab 400 Mg PO Q6H PRN Sprintec 28 (Norgestimate-Ethinyl Estradiol) 0.25-35 mg-Mcg Tab 2 Tab PO DAILY Take 1 tab every 12 hours for 5 days (10 pills), then take 1 active pill daily. Do not take the inactive pills. Reported Ferrous Sulfate 325 Mg (65 Mg Iron) Tablet 325 Mg PO TID Review of Systems Except as stated in HPI: all other systems reviewed are Neg Physical Exam Narrative GENERAL: Fatigued, weak SKIN: Focused skin assessment warm and dry. HEAD: Atraumatic. Normocephalic. EYES: Pupils equal and round. No injection or drainage. ENT: Moist mucous membranes. Pulp exposed on multiple molars on the left posterior mandible, tender to palpation with swelling of the left mandible with no submental or swelling or submental swelling. NECK: Trachea midline. CARDIOVASCULAR: Regular rate and rhythm. No murmur appreciated. RESPIRATORY: Clear to auscultation. Breath sounds equal bilaterally. GASTROINTESTINAL: Abdomen soft, tender to palpation in the suprapubic region and left lower quadrant, uterus is firm consistent with likely fibroids MUSCULOSKELETAL: No obvious deformities. NEUROLOGICAL: Awake and alert. No obvious cranial nerve deficits. Moving all extremities. PSYCHIATRIC: Appropriate mood and affect; insight and judgment normal. Data Data Last Documented VS Vital Signs Date Time Temp Pulse Resp B/P Pulse Ox O2 Delivery O2 Flow Rate FiO2 01/19/17 10:47 75 14 136/81 98 Room Air 01/19/17 09:04 98.4 Orders Complete Blood Count With Diff (01/19/17 09:46) Comprehensive Metabolic Panel (01/19/17 09:46) Lipase (01/19/17 09:46) Urinalysis - C+S If Indicated (01/19/17 09:46) Iv Access Insert/Monitor (01/19/17 09:46) Ecg Monitoring (01/19/17 09:46) Oximetry (01/19/17 09:46) Sodium Chlor 0.9% 1000 Ml Inj (Ns 1000 M (01/19/17 09:46) Sodium Chloride 0.9% Flush (Ns Flush) (01/19/17 10:00) Ketorolac Inj (Toradol Inj) (01/19/17 10:00) Ed Urine Pregnancytest Poc (01/19/17 09:46) Wet Prep Profile (01/19/17 09:46) Gc And Chlamydia Pcr (01/19/17 09:46) Urine Culture (01/19/17 09:55) Ceftriaxone Inj (Rocephin Inj) (01/19/17 10:45) Labs Laboratory Tests Test 01/19/17 09:55 White Blood Count 6.9 TH/MM3 Red Blood Count 3.94 MIL/MM3 Hemoglobin 7.3 GM/DL Hematocrit 25.2 % Mean Corpuscular Volume 63.9 FL Mean Corpuscular Hemoglobin 18.6 PG Mean Corpuscular Hemoglobin 29.0 % Concent Red Cell Distribution Width 20.9 % Platelet Count 566 TH/MM3 Mean Platelet Volume 7.2 FL Neutrophils (%) (Auto) 63.4 % Lymphocytes (%) (Auto) 21.8 % Monocytes (%) (Auto) 9.7 % Eosinophils (%) (Auto) 4.8 % Basophils (%) (Auto) 0.3 % Neutrophils # (Auto) 4.4 TH/MM3 Lymphocytes # (Auto) 1.5 TH/MM3 Monocytes # (Auto) 0.7 TH/MM3 Eosinophils # (Auto) 0.3 TH/MM3 Basophils # (Auto) 0.0 TH/MM3 CBC Comment DIFF FINAL Differential Comment Urine Color YELLOW Urine Turbidity HAZY Urine pH 7.5 Urine Specific [place] 1.017 Urine Protein 30 mg/dL Urine Glucose (UA) NEG mg/dL Urine Ketones NEG mg/dL Urine Occult Blood SMALL Urine Nitrite NEG Urine Bilirubin NEG Urine Urobilinogen LESS THAN 2.0 MG/DL Urine Leukocyte Esterase LARGE Urine RBC 31 /hpf Urine WBC /hpf Urine Squamous Epithelial 2 /hpf Cells Urine Transitional Epithelial <1 /hpf Cells Urine Amorphous Sediment FEW Urine Bacteria MOD /hpf Urine Mucus FEW /lpf Microscopic Urinalysis Comment CULTURE INDICATED Sodium Level 136 MEQ/L Potassium Level 4.1 MEQ/L Chloride Level 105 MEQ/L Carbon Dioxide Level 19.9 MEQ/L Anion Gap 11 MEQ/L Blood Urea Nitrogen 7 MG/DL Creatinine 0.56 MG/DL Estimat Glomerular Filtration 150 ML/MIN Rate Random Glucose 115 MG/DL Calcium Level 8.7 MG/DL Total Bilirubin 0.3 MG/DL Aspartate Amino Transf 30 U/L (AST/SGOT) Alanine Aminotransferase 12 U/L (ALT/SGPT) Alkaline Phosphatase 75 U/L Total Protein 7.9 GM/DL Albumin 3.0 GM/DL Lipase 121 U/L [facility] Medical Decision Making Medical Screen Exam Complete: Yes Emergency Medical Condition: Yes Interpretation(s) Afebrile, mild tachycardia, normotensive Microcytic anemia consistent with baseline Electrolytes are reassuring Lipase is normal Urinalysis demonstrates urinary tract infection Differential Diagnosis Urinary tract infection, PID, fibroids, appendicitis, colitis, dental abscess, anemia Narrative Course This is a 36-year-old female who presents to the emergency department with multiple complaints including lower abdominal discomfort, urinary frequency, dental pain and swelling and weakness. Labs were obtained which demonstrated normal white blood cell count, chronic anemia with a hemoglobin of 7.3 and a urinalysis which demonstrates significant cystitis which I think adequately explains her symptoms. She is given a dose of ceftriaxone here in the emergency department. She'll be discharged on Keflex and can follow-up with a dentist regarding her likely dental abscess. Diagnosis Primary Impression: Urinary tract infection Qualified Code: N30.01 - Acute cystitis with hematuria Additional Impressions: Dental abscess Chronic anemia Patient Instructions: General Instructions Additional Instructions: If you develop fever, persistent vomiting, back pain, or inability to eat return to the emergency department as your urine infection may have progressed to a kidney infection. Complete your antibiotics as prescribed. Stay well hydrated with Gatorade or water. Followup with your primary care physician in 2-3 days if your symptoms have not resolved. Med/Other Pt SpecificInfo: Prescription(s) given Scripts Naproxen 500 Mg [id number] Mg PO BID #20 TAB Ref 0 Prov:Sandy Boyce MD 01/19/17 Cephalexin (Keflex)500 Mg [id number] Mg PO Q12H 7 Days Ref 0 Prov:Sandy Boyce MD 01/19/17 Disposition: 01 DISCHARGE HOME Condition: Stable Sandy Boyce MD Jan 19, 2017 10:29
[2017-01-19 10:32] LABS: BACTERIA, URINE MOD /hpf; BLOOD, URINE SMALL (NEG); COMMENT (UR) CULTURE INDICATED; CULTURE IF INDICATED CULTURE INDICATED; GLUCOSE,URINE NEG (NEG); KETONE, URINE NEG (NEG); MUCUS URINE FEW /lpf (OCC); NITRITE,URINE NEG (NEG); PH, URINE 7.5 (5.0-8.5); SQUAMOUS EPITHELIAL CELL URINE 2 /hpf (0-5); TRANSITIONAL EPI CELLS, URINE <1 /hpf; URINE COLOR YELLOW (YELLW/STRAW)
[2017-01-19 10:34] LABS: AUTOMATED NEUTROPHIL # 4.4 TH/MM3 (1.8-7.7); BASOPHIL % 0.3 % (0.0-2.0); EOSINOPHIL # 0.3 TH/MM3 (0-0.4); EOSINOPHIL % 4.8 % (0.0-4.0); HEMATOCRIT 25.2 % (35.0-46.0); HEMO FLAGS DIFF FINAL; LYMPH % 21.8 % (9.0-44.0); LYMPHOCYTE # 1.5 TH/MM3 (1.0-4.8); MEAN CELL VOLUME 63.9 FL (80.0-100.0); MEAN CORPUSCULAR HEMOGLOBIN 18.6 PG (27.0-34.0); MONO % 9.7 % (0.0-8.0); NEUT % 63.4 % (16.0-70.0); PLATELET COUNT 566 TH/MM3 (150-450); RED BLOOD COUNT 3.94 MIL/MM3 (4.00-5.30); RED CELL DISTRIBUTION WIDTH 20.9 % (11.6-17.2); WHITE BLOOD COUNT 6.9 TH/MM3 (4.0-11.0)
[2017-01-19 10:42] LABS: ALT (GPT) 12 U/L (10-53); ANION GAP 11 MEQ/L (5-15); AST (GOT) 30 U/L (15-37); BICARBONATE 19.9 MEQ/L (21.0-32.0); BLOOD UREA NITROGEN 7 MG/DL (7-18); CHLORIDE 105 MEQ/L (98-107); GLOMERULAR FILTRATION RATE 150 ML/MIN (>89); POTASSIUM 4.1 MEQ/L (3.5-5.1); SODIUM (NA) 136 MEQ/L (136-145)
[2017-01-19 10:45] LABS: ALKALINE PHOSPHATASE 75 U/L (45-117); TOTAL BILIRUBIN ADULT 0.3 MG/DL (0.2-1.0)
[2017-01-19] MEDS ORDERED: cefTRIAXone INJ 1,000 MG in SODIUM CHLORIDE 0.9% INJ 25 ML IV ONE (10:45)
[2017-01-19 10:47] VITALS: BP 136/81; PULSE 75; RESP 14; O2SAT 98
[2017-01-19] MEDS ORDERED: NAPR500T PO (10:52)
[2017-01-19] MEDS ORDERED: CEPH-460 PO (10:52)
== END 2017-01-19 11:06 | disposition home or self-care (01) ==
LOC: NEPD 09:01
DX: N30.01 Acute cystitis with hematuria (principal); K04.7 Periapical abscess without sinus; D53.9 Nutritional anemia, unspecified; B95.7 Other staphylococcus as the cause of diseases classified elsewhere; Z72.0 Tobacco use; Z87.42 Personal history of other diseases of the female genital tract; Z86.2 Personal history of diseases of the blood and blood-forming organs and certain disorders involving the immune mechanism; Z86.79 Personal history of other diseases of the circulatory system; Z86.69 Personal history of other diseases of the nervous system and sense organs
CPT/HCPCS: 80053; 81001; 83690; 84703; 85025; 86403; 87077; 87086; 87186; 96361; 96365; 96375; 99284; J0696; J1885; J7030

== ENCOUNTER 2017-04-24 14:11 | Inpatient (IN) | payer SELFPAY ==
[~2017-04-24] VITALS: Ht 177.8 cm; Wt 67.0 kg
[~2017-04-24 14:11] MED LIST changes: -ACET325T PO; -BACT800T5 PO; +CEPH-460 PO; -FERR325T PO; +FERR325T8 PO; +NAPR500T PO
[2017-04-24 14:14] VITALS: BP 129/62; PULSE 86; RESP 16; TEMP 98.1; O2SAT 99
[2017-04-24] MEDS ORDERED: SODIUM CHLOR 0.9% 1000 ML INJ 1,000 ML IV SCH (16:19)
[2017-04-24] MEDS ORDERED: SODIUM CHLORIDE 0.9% FLUSH 10 ML FLUSH IVF PRN (16:30)
--- NOTE | 2017-04-24 16:31 | PD ---
HPI Chief Complaint: General Weakness Time Seen by Provider: 16:03 Travel History International Travel<30 days: No Contact w/Intl Traveler<30days: No Traveled to known affect area: No History of Present Illness HPI 36-year-old female presents to the emergency room for evaluation of generalized weakness and lethargy since last night. Patient states she has history of anemia requiring transfusions and feels like this when her hemoglobin and iron get low. She had an episode of presyncope this morning seated palpitations. Patient denies any other medical problems. She is taking iron as prescribed. Denies possibility of ; she has her tubes tied and is menstruating. States she typically has significant bleeding because of fibroids. She needs to have surgery but has not been able to find a physician who takes her insurance yet. States she is not bleeding through pads. Denies any melena, hematochezia, or hematemesis. No PCP or SHOPPING INVESTIGATOR. Patient was discharged last time she was admitted for symptomatic anemia with a prescription for control. States she stopped taking it because she ran out and had no refills. PFSH Past Medical History Anemia: Yes Cancer: No Cardiovascular Problems: Yes Diminished Hearing: No Endocrine: No Genitourinary: No Immune Disorder: No Musculoskeletal: No Neurologic: No Psychiatric: No Reproductive: Yes (heavy menstration) Respiratory: No Immunizations Current: Yes Migraines: Yes Tubal Ligation: Yes Past Surgical History Section: Yes (X3) Gynecologic Surgery: Yes ( section x3) Other Surgery: Yes Family History Family Hypercholesterolemia: Yes Social History Alcohol Use: Yes (VERY RARELY) Tobacco Use: Yes (she smokes 1 pack of cigarettes per week) Substance Use: Yes (marijuana a month ago) Allergies-Medications (Allergen,Severity, Reaction): Coded Allergies: tramadol (Unverified Allergy, Severe, Nausea/Vomiting, 04/24/17) Reported Meds & Prescriptions Reported Meds & Active Scripts Active Ibuprofen 400 Mg Tab 400 Mg PO Q6H PRN Reported Ferrous Sulfate 325 Mg (65 Mg Iron) Tablet 325 Mg PO TID Review of Systems Except as stated in HPI: all other systems reviewed are Neg Physical Exam Narrative GENERAL: Well-nourished, well-developed female in no acute distress. Afebrile. Ambulatory. SKIN: Focused skin assessment warm/dry. HEAD: Normocephalic. EYES: No scleral icterus. No injection or drainage. Pallor of the conjunctiva. MOUTH: Mucosa pink and moist. No erythema or exudates. No uvular edema. No uvular, palatal, or tonsillar deviation. Airway patent. NECK: Supple, trachea midline. No JVD or lymphadenopathy. CARDIOVASCULAR: Regular rate and rhythm without murmurs, gallops, or rubs. RESPIRATORY: Breath sounds equal bilaterally. No accessory muscle use. GASTROINTESTINAL: Abdomen soft, non-tender, nondistended. Large palpable fibroid of the uterus. Data Data Last Documented VS Vital Signs Date Time Temp Pulse Resp B/P (MAP) Pulse Ox O2 Delivery O2 Flow Rate FiO2 04/24/17 16:43 99 04/24/17 14:14 98.1 86 16 Orders Orders Complete Blood Count With Diff (04/24/17 16:19) Comprehensive Metabolic Panel (04/24/17 16:19) Prothrombin Time / Inr (Pt) (04/24/17 16:19) Act Partial Throm Time (Ptt) (04/24/17 16:19) Urinalysis - C+S If Indicated (04/24/17 16:19) Type And Screen (04/24/17 16:19) Ecg Monitoring (04/24/17 16:19) Iv Access Insert/Monitor (04/24/17 16:19) Oximetry (04/24/17 16:19) Sodium Chlor 0.9% 1000 Ml Inj (Ns 1000 M (04/24/17 16:19) Sodium Chloride 0.9% Flush (Ns Flush) (04/24/17 16:30) Electrocardiogram (04/24/17 ) Ed Urine Pregnancytest Poc (04/24/17 16:19) Red Blood Cells (Rbc) (04/24/17 17:18) Blood Product Administration (04/24/17 17:18) Vascular Access Team Consult/P PRN (04/24/17 17:21) Vascular Poc Ultrasound (04/24/17 ) Consult Gynecology (04/24/17 ) Admit Order (Ed Use Only) (04/24/17 ) Spiritual Advisor / Telemetry UMESH.Q8H (04/24/17 18:30) Vital Signs (Adult) Q4H (04/24/17 18:30) Activity Oob With Assistance (04/24/17 18:30) Notify Dr: Other (04/24/17 18:30) Admit To Inpatient (04/24/17 ) Vital Signs (Adult) Q4H (04/24/17 18:30) Intake + Output UMESH.QSHIFT (04/24/17 18:30) Sodium Chloride 0.9% Flush (Ns Flush) (04/24/17 18:30) Sodium Chloride 0.9% Flush (Ns Flush) (04/24/17 21:00) Ondansetron Inj (Zofran Inj) (04/24/17 18:30) Complete Blood Count With Diff (04/25/17 06:00) Labs Laboratory Tests Test 04/24/17 16:30 White Blood Count 8.5 TH/MM3 Red Blood Count 2.92 MIL/MM3 Hemoglobin 4.4 GM/DL Hematocrit 16.4 % Mean Corpuscular Volume 56.0 FL Mean Corpuscular Hemoglobin 14.9 PG Mean Corpuscular Hemoglobin Concent 26.6 % Red Cell Distribution Width 20.8 % Platelet Count 493 TH/MM3 Mean Platelet Volume 8.3 FL Neutrophils (%) (Auto) 72.6 % Lymphocytes (%) (Auto) 5.7 % Monocytes (%) (Auto) 14.7 % Eosinophils (%) (Auto) 6.0 % Basophils (%) (Auto) 1.0 % Neutrophils # (Auto) 6.2 TH/MM3 Lymphocytes # (Auto) 0.5 TH/MM3 Monocytes # (Auto) 1.2 TH/MM3 Eosinophils # (Auto) 0.5 TH/MM3 Basophils # (Auto) 0.1 TH/MM3 CBC Comment AUTO DIFF Differential Total Cells Counted 100 Neutrophils % (Manual) 64 % Band Neutrophils % 1 % Lymphocytes % 12 % Monocytes % 15 % Eosinophils % 8 % Neutrophils # (Manual) 5.5 TH/MM3 Differential Comment FINAL DIFF MANUAL Platelet Estimate NORMAL Platelet Morphology Comment NORMAL Target Cells 2+ Ovalocytes 1+ Prothrombin Time 11.9 SEC Prothromb Time International Ratio 1.1 RATIO Activated Partial Thromboplast Time 23.0 SEC Blood Urea Nitrogen 8 MG/DL Creatinine 0.45 MG/DL Random Glucose 84 MG/DL Total Protein 8.3 GM/DL Albumin 3.0 GM/DL Calcium Level 8.4 MG/DL Alkaline Phosphatase 75 U/L Aspartate Amino Transf (AST/SGOT) 13 U/L Alanine Aminotransferase (ALT/SGPT) 8 U/L Total Bilirubin 0.3 MG/DL Sodium Level 135 MEQ/L Potassium Level 3.9 MEQ/L Chloride Level 103 MEQ/L Carbon Dioxide Level 24.1 MEQ/L Anion Gap 8 MEQ/L Estimat Glomerular Filtration Rate 193 ML/MIN MDM Medical Decision Making Medical Screen Exam Complete: Yes Emergency Medical Condition: Yes Medical Record Reviewed: Yes Differential Diagnosis Symptomatic anemia, menorrhagia, severe anemia, UTI, syncope Narrative Course 36-year-old female with a history of fibroids causing severe anemia presents to the emergency room for evaluation of lethargy, presyncope, and lightheadedness that started last night. Patient states when her iron and hemoglobin get low she feels this way. She has had multiple transfusions in the past. Patient is well-appearing the emergency room. She is hemodynamically stable; vital signs stable. Answering questions appropriately. There is pallor of the conjunctiva. She is actively bleeding from her vagina. IV access established and basic labs obtained. EKG shows sinus rhythm with frequent PVCs. Patient has history of bigeminy. CBC has a critically low hemoglobin of 4.4. Patient was transfused 3 units of packed red blood cells emergently. CMP is essentially unremarkable. I spoke to the OB hospitalist, Dr. Burgos, who will come see the patient in the ED. I spoke to the hospitalist on-call, Dr. Mcclendon, who agrees to accept this patient to her service. Physician Communication Physician Communication I spoke to the OB hospitalist on-call, Dr. Burgos, who agrees to see this patient in consult. I spoke to the hospitalist on-call, Dr. Mcclendon, who agrees to admit this patient to her service. Diagnosis Primary Impression: Severe anemia Additional Impression: Uterine fibroid Qualified Codes: D25.9 - Leiomyoma of uterus, unspecified Admitting Information Admitting Physician Requests: Admit Condition: Stable Madina Matias Apr 24, 2017 16:31
[2017-04-24 16:43] VITALS: O2SAT 99
[2017-04-24 17:10] LABS: AUTOMATED NEUTROPHIL # 6.2 TH/MM3 (1.8-7.7); BASOPHIL # 0.1 TH/MM3 (0-0.2); EOSINOPHIL # 0.5 TH/MM3 (0-0.4); LYMPH % 5.7 % (9.0-44.0); LYMPHOCYTE # 0.5 TH/MM3 (1.0-4.8); MEAN CORPUSCULAR HEMOGLOBIN 14.9 PG (27.0-34.0); MEAN PLATELET VOLUME 8.3 FL (7.0-11.0); MONO % 14.7 % (0.0-8.0); MONOCYTE # 1.2 TH/MM3 (0-0.9); NEUT % 72.6 % (16.0-70.0); PLATELET COUNT 493 TH/MM3 (150-450); RED BLOOD COUNT 2.92 MIL/MM3 (4.00-5.30); RED CELL DISTRIBUTION WIDTH 20.8 % (11.6-17.2); WHITE BLOOD COUNT 8.5 TH/MM3 (4.0-11.0)
[2017-04-24 17:12] LABS: MEAN CORPUSCULAR HGB CONC 26.6 % (32.0-36.0)
[2017-04-24 17:18] LABS: HEMATOCRIT 16.4 % (35.0-46.0); HEMOGLOBIN 4.4 GM/DL (11.6-15.3)
[2017-04-24 17:19] LABS: INTERNATIONAL NORMALIZED RATIO 1.1 RATIO; PROTHROMBIN TIME - PATIENT 11.9 SEC (9.8-11.6)
[2017-04-24 17:26] LABS: ALT (GPT) 8 U/L (10-53); AST (GOT) 13 U/L (15-37); BICARBONATE 24.1 MEQ/L (21.0-32.0); BLOOD UREA NITROGEN 8 MG/DL (7-18); CALCIUM 8.4 MG/DL (8.5-10.1); CHLORIDE 103 MEQ/L (98-107); CREATININE 0.45 MG/DL (0.50-1.00); GLOMERULAR FILTRATION RATE 193 ML/MIN (>89); GLUCOSE,RANDOM 84 MG/DL (74-106); SODIUM (NA) 135 MEQ/L (136-145)
[2017-04-24 17:28] LABS: ALKALINE PHOSPHATASE 75 U/L (45-117); TOTAL BILIRUBIN ADULT 0.3 MG/DL (0.2-1.0); TOTAL PROTEIN 8.3 GM/DL (6.4-8.2)
[2017-04-24 17:51] LABS: BANDS 1 % (0-6); LYMPHOCYTES 12 % (9-44); MONOCYTES 15 % (0-8); NEUTROPHIL # MANUAL DIFF 5.5 TH/MM3 (1.8-7.7); POLYS (SEG NEUTROPHILS) 64 % (16-70); TARGET CELLS 2+ (NORMAL)
[2017-04-24 17:52] LABS: OVALOCYTES 1+ (NORMAL)
[2017-04-24] MEDS ORDERED: BISACODYL 10 MG SUPP RECTAL PRN (18:30)
[2017-04-24] MEDS ORDERED: ONDANSETRON HCL 4 MG/2 ML VIAL IVP PRN (18:30)
[2017-04-24] MEDS ORDERED: LACTULOSE SYRUP 20 GM/30 ML CUP PO PRN (18:30)
[2017-04-24] MEDS ORDERED: MAGNESIUM HYDROXIDE SUSP 30 ML CUP PO PRN (18:30)
[2017-04-24] MEDS ORDERED: SENNOSIDES 8.6 MG TAB PO PRN (18:30)
[2017-04-24] MEDS ORDERED: NALOXONE HCL 0.4 MG/ML AMP IV PUSH PRN (18:30)
[2017-04-24] MEDS ORDERED: SODIUM CHLORIDE 0.9% FLUSH 10 ML FLUSH IV FLUSH PRN (18:30)
--- NOTE | 2017-04-24 19:06 | HHI.HP ---
[facility] No Primary Care Physician Admission Diagnosis uterine fibroids causing symptomatic anemia Diagnoses: Travel History International Travel<30 Days: No Contact w/Intl Traveler <30 Da: No Traveled to Known Affected Are: No History of Present Illness Patient is a 36-year-old female with past medical history of fibroids presents to the emergency room complaining of weakness and extreme fatigue. She states that her period started on Wednesday and she's been passing large clots. She doesn't use many pads however she feels the urge of going to the restroom and then when she passes her large clots. She saw an LAMBSKIN TRIMMER in [facility] started her on control and the dose was titrated up however she didn't have any improvement. She states that she feels very weak and her feet feel very heavy. Her weakness and fatigue started mainly last night. She did have some abdominal cramping earlier today however that has resolved for now. She complains of a headache. Denies any nausea or vomiting. She takes iron pills. She has no other complaints. She does not complain of any lightheadedness or dizziness She tells me that her periods are regular every 28 days, they last about a week. Review of Systems Except as stated in HPI: all other systems reviewed are Neg Past Family Social History Past Medical History fibroids Past Surgical History C-sections 3 Tubal ligation Allergies: Coded Allergies: tramadol (Unverified Allergy, Severe, Nausea/Vomiting, 04/24/17) Family History Hypertension, hyperlipidemia, breast cancer runs in her family. Social History Denies alcohol use. Admits to smoking marijuana, states that she smokes cigarettes a pack would last for 3 days and she's been smoking since the age of 26 Physical Exam Vital Signs Vital Signs Date Time Temp Pulse Resp B/P (MAP) Pulse Ox O2 Delivery O2 Flow Rate FiO2 04/24/17 16:43 99 04/24/17 14:57 (84) 04/24/17 14:14 98.1 86 16 129/62 (84) 99 Physical Exam GENERAL: This is a well-nourished, well-developed patient, in no apparent distress. SKIN: No rashes, ecchymoses or lesions. Cool and dry. HEAD: Atraumatic. Normocephalic. No temporal or scalp tenderness. EYES: Pupils equal round and reactive. Extraocular motions intact. No scleral icterus. No injection or drainage. ENT: Nose without drainage. Throat without erythema, tonsillar hypertrophy or exudate. Uvula midline. Airway patent. NECK: Trachea midline. No JVD or lymphadenopathy. Supple, nontender, no meningeal signs. CARDIOVASCULAR: Regular rate and rhythm without murmurs RESPIRATORY: Clear to auscultation. Breath sounds equal bilaterally. No wheezes GASTROINTESTINAL: Abdomen soft, some discomfort with deep palpation, no guarding or rebound. I didn't palpate a mass and her lower abdomen. MUSCULOSKELETAL: Extremities without edema. No joint tenderness, effusion, or edema noted. No calf tenderness. Negative Homans sign bilaterally. NEUROLOGICAL: Awake and alert. Cranial nerves II through XII intact. Motor and sensory grossly within normal limits. Five out of 5 muscle strength in all muscle groups. Normal speech. SCIENTIFIC PHOTOGRAPHER: deferred Laboratory Laboratory Tests Test 04/24/17 16:30 White Blood Count 8.5 Red Blood Count 2.92 Hemoglobin 4.4 Hematocrit 16.4 Mean Corpuscular Volume 56.0 Mean Corpuscular Hemoglobin 14.9 Mean Corpuscular Hemoglobin Concent 26.6 Red Cell Distribution Width 20.8 Platelet Count 493 Mean Platelet Volume 8.3 Neutrophils (%) (Auto) 72.6 Lymphocytes (%) (Auto) 5.7 Monocytes (%) (Auto) 14.7 Eosinophils (%) (Auto) 6.0 Basophils (%) (Auto) 1.0 Neutrophils # (Auto) 6.2 Lymphocytes # (Auto) 0.5 Monocytes # (Auto) 1.2 Eosinophils # (Auto) 0.5 Basophils # (Auto) 0.1 CBC Comment AUTO DIFF Differential Total Cells Counted 100 Neutrophils % (Manual) 64 Band Neutrophils % 1 Lymphocytes % 12 Monocytes % 15 Eosinophils % 8 Neutrophils # (Manual) 5.5 Differential Comment FINAL DIFF MANUAL Platelet Estimate NORMAL Platelet Morphology Comment NORMAL Target Cells 2+ Ovalocytes 1+ Prothrombin Time 11.9 Prothromb Time International Ratio 1.1 Activated Partial Thromboplast Time 23.0 Blood Urea Nitrogen 8 Creatinine 0.45 Random Glucose 84 Total Protein 8.3 Albumin 3.0 Calcium Level 8.4 Alkaline Phosphatase 75 Aspartate Amino Transf (AST/SGOT) 13 Alanine Aminotransferase (ALT/SGPT) 8 Total Bilirubin 0.3 Sodium Level 135 Potassium Level 3.9 Chloride Level 103 Carbon Dioxide Level 24.1 Anion Gap 8 Estimat Glomerular Filtration Rate 193 Result Diagram: 04/24/17 1630 04/24/17 1630 Caprini VTE Risk Assessment Caprini VTE Risk Assessment: No/Low Risk (score <= 1) Caprini Risk Assessment Model Point Value = 1 Point Value = 2 Point Value = 3 Point Value = 5 Age 41-60 Minor surgery BMI > 25 kg/m2 Swollen legs Varicose veins or History of unexplained or recurrent spontaneous Oral contraceptives or hormone replacement Sepsis (< 1 month) Serious lung disease, including pneumonia (< 1 month) Abnormal pulmonary function Acute myocardial infarction Congestive heart failure (< 1 month) History of inflammatory bowel disease Medical patient at bed rest Age 61-74 Arthroscopic surgery Major open surgery (> 45 min) Laparoscopic surgery (> 45 min) Malignancy Confined to bed (> 72 hours) Immobilizing plaster cast Central venous access Age >= 75 History of VTE Family history of VTE Factor V Leiden Prothrombin [id number] Lupus anticoagulant Anticardiolipin antibodies Elevated serum homocysteine Heparin-induced thrombocytopenia Other congenital or acquired thrombophilia Stroke (< 1 month) Elective arthroplasty Hip, pelvis, or leg fracture Acute spinal cord injury (< 1 month) Prophylaxis Regimen Total Risk Factor Score Risk Level Prophylaxis Regimen 0-1 Low Early ambulation 2 Moderate Order ONE of the following: *Sequential Compression Device (SCD) *Heparin 5000 units SQ BID 3-4 Higher Order ONE of the following medications: *Heparin 5000 units SQ TID *Enoxaparin/Lovenox 40 mg SQ daily (WT < 150 kg, CrCl > 30 mL/min) *Enoxaparin/Lovenox 30 mg SQ daily (WT < 150 kg, CrCl > 10-29 mL/min) *Enoxaparin/Lovenox 30 mg SQ BID (WT < 150 kg, CrCl > 30 mL/min) AND/OR *Sequential Compression Device (SCD) 5 or more Highest Order ONE of the following medications: *Heparin 5000 units SQ TID (Preferred with Epidurals) *Enoxaparin/Lovenox 40 mg SQ daily (WT < 150 kg, CrCl > 30 mL/min) *Enoxaparin/Lovenox 30 mg SQ daily (WT < 150 kg, CrCl > 10-29 mL/min) *Enoxaparin/Lovenox 30 mg SQ BID (WT < 150 kg, CrCl > 30 mL/min) AND *Sequential Compression Device (SCD) Assessment and Plan Assessment and Plan Severe anemia: Secondary to vaginal bleeding. Patient does have a history of fibroids. Will check a pelvic ultrasound. SCIENTIFIC PHOTOGRAPHER has already been consulted. Will defer management for her fibroids and vaginal bleeding. ED has already ordered 2 units of packed RBCs. Will check H&H posttransfusion. Repeat hemoglobin levels in the morning. Ferrous sulfate 325 mg twice a day. We'll check a beta-hCG Fibroids: Known history. Did SCIENTIFIC PHOTOGRAPHER consult. Further management per their recommendations. Hyponatremia: 135 today, Monitor. Code Status Full code Discussed Condition With patient Dorinda Mcclendon MD Apr 24, 2017 19:06
--- NOTE | 2017-04-24 19:44 | PD.CONS ---
HPI Chief Complaint symptomatic anemia Date Seen: Apr 24, 2017 Time Seen: 19:02 Travel History International Travel<30 Days: No Contact w/Intl Traveler<30Days: No Known Affected Area: No History of Present Illness HPI Pt is a 36y/o with known uterine fibroids and menorrhagia to anemia. She previously was being followed by Dr. Hatfield and was scheduled for EILEEN in September of this year but states that Dr. Hatfield cancelled her sx stating that she did not take her insurance (medicaid). Pt states that her medicaid lapsed. She has been seen in the ED for symptomatic anemia previously and received blood transfusions. A few months ago, she was d/c'd from the hospital with an Rx for OCPs. She states that she took them until she ran out. She is upset that she didn't have unlimited refills on them. She states that she has not tried to see an OBGYN due to lack of insurance. She presented to the hospital again today with symptomatic anemia. She is currently menstruating. Para: 3 : 3 Last Menstrual Period: Apr 24, 2017 History Past Medical History Narrative Medical anemia uterine fibroids Obstetric History Obstetric History OB: -- CSx3 -- s/p BTL BUSINESS DEVELOPMENT ENGINEER: -- menarche age 16 -- cycles q1m lasting 7-9d -- pt reports cycles are "not that heavy" but she goes to the bathroom and passes blood/clots Past Surgical History Narrative Surgical CSx3 Family History Narrative Family History hyperlipidemia Social History Alcohol Use: Yes (occasional) Tobacco Use: Yes (1/3 PPD) Substance Abuse: Yes (occasional MJ) Allergies-Medications (Allergen,Severity, Reaction): Coded Allergies: tramadol (Unverified Allergy, Severe, Nausea/Vomiting, 04/24/17) Home Meds Active Scripts Ibuprofen (Ibuprofen) 400 Mg Tab, 400 MG PO Q6H Y for HEADACHE, #30 TAB Prov:Rebeca Méndez MD R2 10/19/16 Reported Medications Ferrous Sulfate (Ferrous Sulfate) 325 Mg (65 Mg Iron) Tablet, 325 MG PO TID for Nutritional Supplement, #90 TAB 0 Refills 01/19/17 Discontinued Scripts Naproxen (Naproxen) 500 Mg Tab, 500 MG PO BID for Pain Management, #20 TAB 0 Refills Prov:Sandy Boyce MD 01/19/17 Cephalexin (Keflex) 500 Mg Cap, 500 MG PO Q12H for Infection for 7 Days, CAP 0 Refills Prov:Sandy Boyce MD 01/19/17 Norgestimate-Ethinyl Estradiol (Sprintec 28) 0.25-35 mg-Mcg Tab, 2 TAB PO DAILY for Control, #1 PACK 6 Refills Take 1 tab every 12 hours for 5 days (10 pills), then take 1 active pill daily. Do not take the inactive pills. Prov:Rebeca Méndez MD R2 10/19/16 Review of Systems Except as stated in HPI: all other systems reviewed are Neg Physical Exam Vital Signs Date Time Temp Pulse Resp B/P (MAP) Pulse Ox O2 Delivery O2 Flow Rate FiO2 04/24/17 16:43 99 04/24/17 14:57 (84) 04/24/17 14:14 98.1 86 16 129/62 (84) 99 Narrative GENERAL: Well-nourished, well-developed patient. SKIN: Warm and dry. HEAD: Normocephalic and atraumatic. EYES: No scleral icterus. No injection or drainage. ENT: No nasal drainage noted. ABDOMEN/GI: Abdomen soft, non-tender, fibroid uterus palpable to the umbilicus EXTREMITIES: No cyanosis or edema. NEUROLOGICAL: Awake and alert. Motor and sensory grossly within normal limits. PELVIC: deferred Data Data Vital Signs Reviewed: Yes Orders Orders Complete Blood Count With Diff (04/24/17 16:19) Comprehensive Metabolic Panel (04/24/17 16:19) Prothrombin Time / Inr (Pt) (04/24/17 16:19) Act Partial Throm Time (Ptt) (04/24/17 16:19) Urinalysis - C+S If Indicated (04/24/17 16:19) Type And Screen (04/24/17 16:19) Ecg Monitoring (04/24/17 16:19) Iv Access Insert/Monitor (04/24/17 16:19) Oximetry (04/24/17 16:19) Sodium Chlor 0.9% 1000 Ml Inj (Ns 1000 M (04/24/17 16:19) Sodium Chloride 0.9% Flush (Ns Flush) (04/24/17 16:30) Electrocardiogram (04/24/17 ) Ed Urine Pregnancytest Poc (04/24/17 16:19) Red Blood Cells (Rbc) (04/24/17 17:18) Blood Product Administration (04/24/17 17:18) Vascular Access Team Consult/P PRN (04/24/17 17:21) Vascular Poc Ultrasound (04/24/17 ) Consult Gynecology (04/24/17 ) Admit Order (Ed Use Only) (04/24/17 ) Accounts Receivable Analyst / Telemetry UMESH.Q8H (04/24/17 18:30) Vital Signs (Adult) Q4H (04/24/17 18:30) Activity Oob With Assistance (04/24/17 18:30) Notify Dr: Other (04/24/17 18:30) Admit To Inpatient (04/24/17 ) Vital Signs (Adult) Q4H (04/24/17 18:30) Intake + Output UMESH.QSHIFT (04/24/17 18:30) Sodium Chloride 0.9% Flush (Ns Flush) (04/24/17 18:30) Sodium Chloride 0.9% Flush (Ns Flush) (04/24/17 21:00) Ondansetron Inj (Zofran Inj) (04/24/17 18:30) Complete Blood Count With Diff (04/25/17 06:00) Scd Bilateral/Knee High UMESH.BID (04/24/17 18:30) Naloxone Inj (Narcan Inj) (04/24/17 18:30) Docusate Sodium-Senna (Brenna-Colace) (04/24/17 21:00) Magnesium Hydroxide Liq (Milk Of Magnesi (04/24/17 18:30) Sennosides (Senokot) (04/24/17 18:30) Bisacodyl Supp (Dulcolax Supp) (04/24/17 18:30) Lactulose Liq (Lactulose Liq) (04/24/17 18:30) Inpatient Certification (04/24/17 ) Instruction (04/24/17 18:32) (Hub Use Only)Inp Phy Cons/Ref (04/24/17 ) Us Pelvis Comp W Transvaginal (04/24/17 ) Beta Hcg (Quant/Titer) (04/24/17 18:58) Ferrous Sulfate (Ferrous Sulfate) (04/24/17 21:00) Basic Metabolic Panel (Bmp) (04/25/17 06:00) Labs Laboratory Tests Test 04/24/17 16:30 White Blood Count 8.5 Red Blood Count 2.92 Hemoglobin 4.4 Hematocrit 16.4 Mean Corpuscular Volume 56.0 Mean Corpuscular Hemoglobin 14.9 Mean Corpuscular Hemoglobin Concent 26.6 Red Cell Distribution Width 20.8 Platelet Count 493 Mean Platelet Volume 8.3 Neutrophils (%) (Auto) 72.6 Lymphocytes (%) (Auto) 5.7 Monocytes (%) (Auto) 14.7 Eosinophils (%) (Auto) 6.0 Basophils (%) (Auto) 1.0 Neutrophils # (Auto) 6.2 Lymphocytes # (Auto) 0.5 Monocytes # (Auto) 1.2 Eosinophils # (Auto) 0.5 Basophils # (Auto) 0.1 CBC Comment AUTO DIFF Differential Total Cells Counted 100 Neutrophils % (Manual) 64 Band Neutrophils % 1 Lymphocytes % 12 Monocytes % 15 Eosinophils % 8 Neutrophils # (Manual) 5.5 Differential Comment FINAL DIFF MANUAL Platelet Estimate NORMAL Platelet Morphology Comment NORMAL Target Cells 2+ Ovalocytes 1+ Prothrombin Time 11.9 Prothromb Time International Ratio 1.1 Activated Partial Thromboplast Time 23.0 Blood Urea Nitrogen 8 Creatinine 0.45 Random Glucose 84 Total Protein 8.3 Albumin 3.0 Calcium Level 8.4 Alkaline Phosphatase 75 Aspartate Amino Transf (AST/SGOT) 13 Alanine Aminotransferase (ALT/SGPT) 8 Total Bilirubin 0.3 Sodium Level 135 Potassium Level 3.9 Chloride Level 103 Carbon Dioxide Level 24.1 Anion Gap 8 Estimat Glomerular Filtration Rate 193 MDM Medical Record Reviewed: Yes Plan 36y/o with uterine fibroids and menorrhagia to anemia. 1. anemia -- Hgb critcal at 4.4 -- pt hemodynamically stable -- s/p pRBCs x3 -- continue PO ferrous sulfate daily 2. uterine fibroids -- no need for imaging as pt has previously had complete workup as outpt to r/o maligancy -- pt has completed childbearing; ultimately needs a hysterectomy but is awaiting medicaid to come through -- counseled pt that estrogen containing compounds should be avoided in smokers >35y/o given the increased risk of VTE/[place] -- recommend 10mg PO provera BID x7d and then qday until follow up with BUSINESS DEVELOPMENT ENGINEER; pt aware that we can not give an Rx with indefinite refills and she must f/u as an outpt for surgical or medical management Thank you for allowing us to be involved in pts care. Recommendations in bold above (not ordered). Stable for d/c home when cleared medically. Admitting diagnosis: uterine fibroids causing symptomatic anemia Condition: Stable Jacquelyn Burgos MD Apr 24, 2017 19:44
[2017-04-24 20:00] VITALS: BP 114/67; PULSE 84; RESP 16; TEMP 98.6; O2SAT 98
[2017-04-24] MEDS: SODIUM CHLORIDE 0.9% FLUSH 10 ML FLUSH IV FLUSH SCH (20:28)
[2017-04-24] MEDS: DOCUSATE SODIUM 50 MG/SENNA 8.6 MG TAB PO SCH (21:00)
[2017-04-24] MEDS ORDERED: SODIUM CHLOR 0.9% 250 ML INJ 250 ML IV ONE (21:30)
[2017-04-24] MEDS ORDERED: ACETAMINOPHEN 325 MG TAB PO ONE (21:30)
[2017-04-24] MEDS: FERROUS SULFATE 325 MG (65 MG ELEMENTAL IRON) TAB PO SCH (21:38)
[2017-04-24 22:21] VITALS: BP 113/58; PULSE 86; RESP 16; TEMP 98.6; O2SAT 98
[2017-04-24 22:37] VITALS: BP 117/59; PULSE 85; RESP 16; TEMP 98.4; O2SAT 100
--- NOTE | 2017-04-24 22:52 | RADRPT ---
EXAM DATE/TIME: 04/24/2017 20:33 [facility] COMPARISON: US PELVIS - COMPLETE (SUPERVISOR INSTRUMENT MAINTENANCE,NON-PREG), September 10, 2016, 11:40. INDICATIONS : Fibroids. MEDICAL HISTORY : Menorrhagia. Anemia. Blood transfusions. Fibroids. SURGICAL HISTORY : section. Tubal ligation. ENCOUNTER: Subsequent ACUITY: 4-6 days PAIN SCORE: 0/10 LOCATION: Bilateral pelvis MEASUREMENTS: UTERUS: 13.4 x 10.2 x 8.1 cm ENDOMETRIAL STRIPE: 6 mm RIGHT OVARY: 2.6 x 1.9 x 1.6 cm LEFT OVARY: 3.4 x 3.2 x 2.2 cm FINDINGS: UTERUS: There is a heterogeneous hypoechoic solid mass posterior aspect of the mid uterus characteristic of a submucosal fibroid measuring 7.9 x 5.9 x 8.4 cm. There is mass effect on the endometrial cavity. RIGHT OVARY: Ovary contains no mass or significant cystic lesion. LEFT OVARY: Ovary contains no mass or significant cystic lesion. MISCELLANEOUS: No free fluid. CONCLUSION: 1. 8.4 cm solid vascular fibroid. 2. Small follicular cysts are seen bilaterally measuring up to 1.3 cm on the left and 1.2 cm on the r ight. Sanjay Guerra MD on April 24, 2017 at 22:48 Board Certified Radiologist. This report was verified electronically.
--- NOTE | 2017-04-24 22:52 | RADRPT ---
EXAM DATE/TIME: 04/24/2017 20:33 [facility] COMPARISON: US PELVIS - COMPLETE (SUPERVISOR ROCKET [employer]ANT,NON-PREG), September 10, 2016, 11:40. INDICATIONS : Fibroids. MEDICAL HISTORY : Menorrhagia. Anemia. Blood transfusions. Fibroids. SURGICAL HISTORY : section. Tubal ligation. ENCOUNTER: Subsequent ACUITY: 4-6 days PAIN SCORE: 0/10 LOCATION: Bilateral pelvis MEASUREMENTS: UTERUS: 13.4 x 10.2 x 8.1 cm ENDOMETRIAL STRIPE: 6 mm RIGHT OVARY: 2.6 x 1.9 x 1.6 cm LEFT OVARY: 3.4 x 3.2 x 2.2 cm FINDINGS: UTERUS: There is a heterogeneous hypoechoic solid mass posterior aspect of the mid uterus characteristic of a submucosal fibroid measuring 7.9 x 5.9 x 8.4 cm. There is mass effect on the endometrial cavity. RIGHT OVARY: Ovary contains no mass or significant cystic lesion. LEFT OVARY: Ovary contains no mass or significant cystic lesion. MISCELLANEOUS: No free fluid. CONCLUSION: 1. 8.4 cm solid vascular fibroid. 2. Small follicular cysts are seen bilaterally measuring up to 1.3 cm on the left and 1.2 cm on the r ight. Sanjay Guerra MD on April 24, 2017 at 22:48 Board Certified Radiologist. This report was verified electronically.
--- NOTE | 2017-04-24 22:52 | RADRPT ---
EXAM DATE/TIME: 04/24/2017 20:33 [facility] COMPARISON: US PELVIS - COMPLETE (RN RESEARCH,NON-PREG), September 10, 2016, 11:40. INDICATIONS : Fibroids. MEDICAL HISTORY : Menorrhagia. Anemia. Blood transfusions. Fibroids. SURGICAL HISTORY : section. Tubal ligation. ENCOUNTER: Subsequent ACUITY: 4-6 days PAIN SCORE: 0/10 LOCATION: Bilateral pelvis MEASUREMENTS: UTERUS: 13.4 x 10.2 x 8.1 cm ENDOMETRIAL STRIPE: 6 mm RIGHT OVARY: 2.6 x 1.9 x 1.6 cm LEFT OVARY: 3.4 x 3.2 x 2.2 cm FINDINGS: UTERUS: There is a heterogeneous hypoechoic solid mass posterior aspect of the mid uterus characteristic of a submucosal fibroid measuring 7.9 x 5.9 x 8.4 cm. There is mass effect on the endometrial cavity. RIGHT OVARY: Ovary contains no mass or significant cystic lesion. LEFT OVARY: Ovary contains no mass or significant cystic lesion. MISCELLANEOUS: No free fluid. CONCLUSION: 1. 8.4 cm solid vascular fibroid. 2. Small follicular cysts are seen bilaterally measuring up to 1.3 cm on the left and 1.2 cm on the r ight. Sanjay Guerra MD on April 24, 2017 at 22:48 Board Certified Radiologist. This report was verified electronically.
[2017-04-25] VITALS (11 sets, daily range): BP systolic 102–122; BP diastolic 55–82; PULSE 70–87; RESP 16–20; TEMP 98.1–98.6; O2SAT 99–100
[2017-04-25 08:25] LABS: AUTOMATED NEUTROPHIL # 3.2 TH/MM3 (1.8-7.7); BASOPHIL % 0.6 % (0.0-2.0); EOSINOPHIL # 0.4 TH/MM3 (0-0.4); EOSINOPHIL % 6.6 % (0.0-4.0); LYMPH % 28.6 % (9.0-44.0); LYMPHOCYTE # 1.8 TH/MM3 (1.0-4.8); MEAN CELL VOLUME 67.6 FL (80.0-100.0); MEAN CORPUSCULAR HEMOGLOBIN 21.7 PG (27.0-34.0); MEAN CORPUSCULAR HGB CONC 32.1 % (32.0-36.0); MEAN PLATELET VOLUME 8.5 FL (7.0-11.0); MONOCYTE # 0.8 TH/MM3 (0-0.9); NEUT % 51.2 % (16.0-70.0); PLATELET COUNT 371 TH/MM3 (150-450); RED CELL DISTRIBUTION WIDTH 31.1 % (11.6-17.2); WHITE BLOOD COUNT 6.2 TH/MM3 (4.0-11.0)
[2017-04-25 08:43] LABS: BICARBONATE 25.2 MEQ/L (21.0-32.0); CALCIUM 7.8 MG/DL (8.5-10.1); CREATININE 0.43 MG/DL (0.50-1.00)
[2017-04-25] MEDS: DOCUSATE SODIUM 50 MG/SENNA 8.6 MG TAB PO SCH (09:00)
[2017-04-25] MEDS: SODIUM CHLORIDE 0.9% FLUSH 10 ML FLUSH IV FLUSH SCH (09:00)
--- NOTE | 2017-04-25 09:12 | HHI.PR ---
Subjective Remarks resting comfortably with no distress. no chest pain, sob or dizziness. no new complaints. d/w the RN and no acute issues over night. Objective Vitals Vital Signs Date Time Temp Pulse Resp B/P (MAP) Pulse Ox O2 Delivery O2 Flow Rate FiO2 04/25/17 08:02 Room Air 04/25/17 08:02 84 04/25/17 04:27 98.1 78 18 108/57 100 04/25/17 04:00 Room Air 04/25/17 02:39 98.2 80 18 102/55 100 04/25/17 02:25 98.1 80 18 106/57 100 04/25/17 02:23 98.1 80 18 106/57 100 04/25/17 01:28 98.4 87 18 110/58 100 04/25/17 01:10 98.4 83 20 114/59 100 04/25/17 00:04 85 04/25/17 00:00 86 16 112/59 (76) 99 04/25/17 00:00 Room Air 04/24/17 22:37 98.4 85 16 117/59 100 04/24/17 22:21 98.6 86 16 113/58 98 04/24/17 20:00 98.6 84 16 114/67 (83) 98 04/24/17 16:43 99 04/24/17 14:57 (84) 04/24/17 14:14 98.1 86 16 129/62 (84) 99 I/O 04/24/17 04/24/17 04/24/17 04/25/17 04/25/17 04/25/17 07:00 15:00 23:00 07:00 15:00 23:00 Intake Total 1010 ml 3055 ml 0 ml Balance 1010 ml 3055 ml 0 ml Intake Oral 720 ml IV Total 1000 ml 120 ml 0 ml Packed Cells 2175 ml Blood Product IV Normal Saline Flush 10 ml 40 ml Result Diagram: 04/25/1762904/25/17629 Imaging Last Impressions Pelvis Ultrasound 04/24/17 0000 Signed Impressions: Service Date/Time: Monday, April 24, 2017 20:33 - CONCLUSION: 1. 8.4 cm solid vascular fibroid. 2. Small follicular cysts are seen bilaterally measuring up to 1.3 cm on the left and 1.2 cm on the right. Sanjay Guerra MD Objective Remarks GENERAL: This is a well-nourished, well-developed patient, in no apparent distress. CARDIOVASCULAR: Regular rate and regular rhythm without murmurs, gallops, or rubs. RESPIRATORY: Clear to auscultation. Breath sounds equal bilaterally. No wheezes , rales, or rhonchi. GASTROINTESTINAL: Abdomen soft, non-tender, nondistended. Normal, active bowel sounds MUSCULOSKELETAL: Extremities without clubbing, cyanosis, or edema. NEURO: Alert & Oriented x4 to person, place, time, situation. Moves all ext x4 Medications and IVs Current Medications Sodium Chloride 1,000 ml @ 1,000 mls/hr Q1H IV Last administered on 04/24/17 16:19; Start 04/24/17 at 16:19; Stop 04/24/17 at 17:20; Status DC Sodium Chloride (NS Flush) 2 ml UNSCH PRN IVF FLUSH AFTER USING IV ACCESS; Start 04/24/17 at 16:30; Stop 04/24/17 at 18:44; Status DC Sodium Chloride (NS Flush) 2 ml UNSCH PRN IV FLUSH FLUSH AFTER USING IV ACCESS ; Start 04/24/17 at 18:30 Sodium Chloride (NS Flush) 2 ml BID IV FLUSH Last administered on 04/24/17 20: 28; Start 04/24/17 at 21:00 Ondansetron HCl (Zofran Inj) 4 mg Q6H PRN IVP NAUSEA OR VOMITING; Start at 18:30 Naloxone HCl (Narcan Inj) 0.4 mg UNSCH PRN IV PUSH SEE LABEL COMMENTS; Start 04/24/17 at 18:30 Senna/Docusate Sodium (Brenna-Colace) 1 tab BID PO ; Start 04/24/17 at 21:00 Magnesium Hydroxide (Milk Of Magnesia Liq) 30 ml Q12H PRN PO Mild constipation ; Start 04/24/17 at 18:30 Sennosides (Senokot) 17.2 mg Q12H PRN PO Moderate constipation; Start 04/24/17 at 18:30 Bisacodyl (Dulcolax Supp) 10 mg DAILY PRN RECTAL SEVERE CONSITIPATION; Start 04/24/17 at 18:30 Lactulose (Lactulose Liq) 30 ml DAILY PRN PO SEVERE CONSITIPATION; Start at 18:30 Ferrous Sulfate (Ferrous Sulfate) 325 mg BID PO Last administered on 04/24/17 21:38; Start 04/24/17 at 21:00 Pneumococcal Polyvalent Vaccine (Pneumovax-23 Inj) 25 mcg ONCE ONCE IM ; Start 04/25/17 at 10:00; Stop 04/25/17 at 10:01 Sodium Chloride 250 ml @ 15 mls/hr ONCE ONCE IV Last administered on 21:30; Start 04/24/17 at 21:30; Stop 04/25/17 at 14:09 Acetaminophen (Tylenol) 650 mg ONCE ONCE PO Last administered on 04/24/17 21: 38; Start 04/24/17 at 21:30; Stop 04/24/17 at 21:32; Status DC A/P Assessment and Plan A/P Severe anemia: Secondary to vaginal bleeding. Patient does have a history of fibroids. s/p PRBC transfusion with improved H/H- continue ferrous sulfate. Fibroids: Known history. 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 Discharge Planning dc home today with f/u by PCP and FAGOT HEATER HELPER. see med list. d/w the patient and RN. Yoel Reece MD Apr 25, 2017 09:12
[2017-04-25] MEDS: FERROUS SULFATE 325 MG (65 MG ELEMENTAL IRON) TAB PO SCH (09:19)
[2017-04-25] MEDS ORDERED: PROV10TA PO ×2 (09:24→13:36)
[2017-04-25] MEDS ORDERED: PNEUMOCOCCAL POLYVALENT INJ 25 MCG/0.5 ML SYR IM ONE (10:00)
[2017-04-25 12:27] LABS: OVALOCYTES 1+ (NORMAL); TARGET CELLS 1+ (NORMAL)
--- NOTE | 2017-04-25 12:32 | EKG ---
Date Performed: 04/24/2017 Time Performed: 16:47:48 PTAGE: 36 years EKG: Sinus rhythm WITH FREQUENT VENTRICULAR PREMATURE COMPLEXES MODERATE VOLTAGE CRITERIA FOR LVH, CONSIDER NORMAL TRANG IANT ABNORMAL RHYTHM ECG INTERPRETATION BASED ON A DEFAULT AGE OF 42 YEARS PREVIOUS TRACING : 11/14/2016 12.47 Compared to prior tracing no significant change DOCTOR: Missael Turcios Interpretating Date/Time 04/25/2017 12:30:24
--- NOTE | 2017-04-25 13:35 | HHI.DS ---
Discharge Summary Admission Date Apr 24, 2017 at 18:38 Discharge Date: Apr 25, 2017 Admitting Diagnosis uterine fibroids causing symptomatic anemia (1) Severe anemia ICD Code: D64.9 - Anemia, unspecified Diagnosis: Principal Status: Acute (2) Uterine fibroid ICD Code: D25.9 - Leiomyoma of uterus, unspecified Diagnosis: Principal Status: Acute Procedures none Brief History - From Admission Patient is a 36-year-old female with past medical history of fibroids presents to the emergency room complaining of weakness and extreme fatigue. She states that her period started on Wednesday and she's been passing large clots. She doesn't use many pads however she feels the urge of going to the restroom and then when she passes her large clots. She saw an LOTUS NOTES ADMINISTRATOR in [facility] started her on control and the dose was titrated up however she didn't have any improvement. She states that she feels very weak and her feet feel very heavy. Her weakness and fatigue started mainly last night. She did have some abdominal cramping earlier today however that has resolved for now. She complains of a headache. Denies any nausea or vomiting. She takes iron pills. She has no other complaints. She does not complain of any lightheadedness or dizziness She tells me that her periods are regular every 28 days, they last about a week. CBC/BMP: 04/25/17 0630 04/25/17 0630 Significant Findings Laboratory Tests Test 04/24/17 16:30 04/25/17 06:30 Red Blood Count 2.92 MIL/MM3 (4.00-5.30) 3.70 MIL/MM3 (4.00-5.30) Hemoglobin 4.4 GM/DL (11.6-15.3) 8.0 GM/DL (11.6-15.3) Hematocrit 16.4 % (35.0-46.0) 25.0 % (35.0-46.0) Mean Corpuscular Volume 56.0 FL (80.0-100.0) 67.6 FL (80.0-100.0) Mean Corpuscular Hemoglobin 14.9 PG (27.0-34.0) 21.7 PG (27.0-34.0) Mean Corpuscular Hemoglobin Concent 26.6 % (32.0-36.0) Red Cell Distribution Width 20.8 % (11.6-17.2) 31.1 % (11.6-17.2) Platelet Count 493 TH/MM3 (150-450) Neutrophils (%) (Auto) 72.6 % (16.0-70.0) Lymphocytes (%) (Auto) 5.7 % (9.0-44.0) Monocytes (%) (Auto) 14.7 % (0.0-8.0) 13.0 % (0.0-8.0) Eosinophils (%) (Auto) 6.0 % (0.0-4.0) 6.6 % (0.0-4.0) Lymphocytes # (Auto) 0.5 TH/MM3 (1.0-4.8) Monocytes # (Auto) 1.2 TH/MM3 (0-0.9) Eosinophils # (Auto) 0.5 TH/MM3 (0-0.4) Monocytes % 15 % (0-8) Eosinophils % 8 % (0-4) Target Cells 2+ (NORMAL) 1+ (NORMAL) Ovalocytes 1+ (NORMAL) 1+ (NORMAL) Prothrombin Time 11.9 SEC (9.8-11.6) Activated Partial Thromboplast Time 23.0 SEC (24.3-30.1) Creatinine 0.45 MG/DL (0.50-1.00) 0.43 MG/DL (0.50-1.00) Total Protein 8.3 GM/DL (6.4-8.2) Albumin 3.0 GM/DL (3.4-5.0) Calcium Level 8.4 MG/DL (8.5-10.1) 7.8 MG/DL (8.5-10.1) Aspartate Amino Transf (AST/SGOT) 13 U/L (15-37) Alanine Aminotransferase (ALT/SGPT) 8 U/L (10-53) Sodium Level 135 MEQ/L (136-145) PE at Discharge GENERAL: This is a well-nourished, well-developed patient, in no apparent distress. CARDIOVASCULAR: Regular rate and regular rhythm without murmurs, gallops, or rubs. RESPIRATORY: Clear to auscultation. Breath sounds equal bilaterally. No wheezes , rales, or rhonchi. GASTROINTESTINAL: Abdomen soft, non-tender, nondistended. Normal, active bowel sounds MUSCULOSKELETAL: Extremities without clubbing, cyanosis, or edema. NEURO: Alert & Oriented x4 to person, place, time, situation. Moves all ext x4 Hospital Course Severe anemia: Secondary to vaginal bleeding. Patient does have a history of fibroids. s/p PRBC transfusion with improved H/H- continue ferrous sulfate. Fibroids: Known history. 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 Pt Condition on Discharge: Stable Discharge Disposition: Discharge Home Discharge Time: <= 30 minutes Discharge Instructions DIET: Follow Instructions for: As Tolerated, No Restrictions Activities you can perform: Regular-No Restrictions Follow up Referrals: LOTUS NOTES ADMINISTRATOR PCP Follow-up New Medications: Medroxyprogesterone Acetate (Provera) 10 Mg Tab 10 MG PO DIRECTED for Uterine bleeding, #5 TAB 0 Refills 10 mg po twice daily for seven days then 10 mg po daily for seven days-then stop. Continued Medications: Ferrous Sulfate (Ferrous Sulfate) 325 Mg (65 Mg Iron) Tablet 325 MG PO TID for Nutritional Supplement, #90 TAB 0 Refills Discontinued Medications: Ibuprofen (Ibuprofen) 400 Mg Tab 400 MG PO Q6H PRN for HEADACHE, #30 TAB Yoel Reece MD Apr 25, 2017 13:35
== END 2017-04-25 14:14 | disposition home or self-care (01) | DRG 812 ==
LOC: NEPD 14:11 → NEDA 18:38 → N04B 19:58
PROVIDERS: ADMIT Internal Medicine; ATTEND Internal Medicine
PROC: 30233N1 Transfusion of Nonautologous Red Blood Cells into Peripheral Vein, Percutaneous Approach (ICD-10-PCS; principal; 2017-04-24)
DX: D50.0 Iron deficiency anemia secondary to blood loss (chronic) (principal); E87.1 Hypo-osmolality and hyponatremia; D25.9 Leiomyoma of uterus, unspecified; I49.3 Ventricular premature depolarization; N92.0 Excessive and frequent menstruation with regular cycle; F17.210 Nicotine dependence, cigarettes, uncomplicated; F12.90 Cannabis use, unspecified, uncomplicated; Z88.5 Allergy status to narcotic agent
CPT/HCPCS: 36430; 76856; 76937; 80048; 80053; 84702; 85007; 85025; 85027; 85610; 85730; 86077; 86850; 86870; 86900; 86901; 86922; 93005; J7030; J7050; P9016

== ENCOUNTER 2017-08-08 21:12 | Inpatient (IN) | payer MEDICAID ==
[~2017-08-08] VITALS: Ht 160 cm; Wt 70.0 kg
[~2017-08-08 21:12] MED LIST changes: -CEPH-460 PO; +FERR325T18 PO; -FERR325T8 PO; -IBUP400T20 PO; -NAPR500T PO; +PROV10TA PO; -SPRI28TA PO
[2017-08-08 21:16] VITALS: BP 132/69; PULSE 98; RESP 16; TEMP 98.5; O2SAT 100
--- NOTE | 2017-08-08 21:27 | PD ---
HPI Chief Complaint: Abdominal Pain Time Seen by Provider: 21:26 Travel History International Travel<30 days: No Contact w/Intl Traveler<30days: No Traveled to known affect area: No PFSH Past Medical History Anemia: Yes Cancer: No Cardiovascular Problems: Yes Diminished Hearing: No Endocrine: No Genitourinary: No Immune Disorder: No Musculoskeletal: No Neurologic: Yes Psychiatric: No Reproductive: Yes (heavy menstration) Respiratory: No Immunizations Current: Yes Migraines: Yes Tetanus Vaccination: < 5 Years Influenza Vaccination: Yes ?: Not LMP: 08/06/2017 Tubal Ligation: Yes Past Surgical History Section: Yes (X3) Gynecologic Surgery: Yes ( section x3) Other Surgery: Yes Family History Family Hypercholesterolemia: Yes Social History Alcohol Use: Yes (occasional) Tobacco Use: Yes (/ PPD) Substance Use: Yes (MARIJUANA) Allergies-Medications (Allergen,Severity, Reaction): Coded Allergies: ibuprofen (Verified Allergy, Severe, 08/08/17) "make me bleed out more" tramadol (Unverified Allergy, Severe, Nausea/Vomiting, 08/08/17) Reported Meds & Prescriptions Reported Meds & Active Scripts Active Provera (Medroxyprogesterone Acetate) 10 Mg Tab 10 Mg PO DIRECTED 14 Days 10 mg po twice daily for seven days then 10 mg po daily for seven days- Reported Ferrous Sulfate 325 Mg (65 Mg Iron) Tablet 325 Mg PO TID Data Data Last Documented VS Vital Signs Date Time Temp Pulse Resp B/P (MAP) Pulse Ox O2 Delivery O2 Flow Rate FiO2 08/08/17 21:16 98.5 98 16 132/69 (90) 100 Room Air Orders Orders Complete Blood Count With Diff (08/08/17 21:44) Comprehensive Metabolic Panel (08/08/17 21:44) Prothrombin Time / Inr (Pt) (08/08/17 21:44) Act Partial Throm Time (Ptt) (08/08/17 21:44) Urinalysis - C+S If Indicated (08/08/17 21:44) Thyroid Stimulating Hormone (08/08/17 21:44) Iv Access Insert/Monitor (08/08/17 21:44) Ecg Monitoring (08/08/17 21:44) Oximetry (08/08/17 21:44) Type And Screen (08/08/17 21:44) Ed Urine Pregnancytest Poc (08/08/17 21:44) Erythropoietin (Epo) (08/08/17 22:41) Retic Count (08/08/17 22:41) Red Blood Cells (Rbc) (08/08/17 22:42) Blood Product Administration (08/08/17 22:42) Sodium Chlor 0.9% 250 Ml Inj (Ns 250 Ml (08/08/17 22:45) Admit Order (Ed Use Only) (08/08/17 22:43) Ferritin (08/08/17 22:00) Iron/Tibc Profile (08/08/17 22:00) Labs Laboratory Tests Test 08/08/17 22:00 White Blood Count 10.8 TH/MM3 Red Blood Count 3.31 MIL/MM3 Hemoglobin 5.2 GM/DL Hematocrit 18.1 % Mean Corpuscular Volume 54.5 FL Mean Corpuscular Hemoglobin 15.7 PG Mean Corpuscular Hemoglobin Concent 28.8 % Red Cell Distribution Width 21.2 % Platelet Count 480 TH/MM3 Mean Platelet Volume 8.2 FL Neutrophils (%) (Auto) 77.1 % Lymphocytes (%) (Auto) 14.1 % Monocytes (%) (Auto) 5.9 % Eosinophils (%) (Auto) 2.3 % Basophils (%) (Auto) 0.6 % Neutrophils # (Auto) 8.3 TH/MM3 Lymphocytes # (Auto) 1.5 TH/MM3 Monocytes # (Auto) 0.6 TH/MM3 Eosinophils # (Auto) 0.2 TH/MM3 Basophils # (Auto) 0.1 TH/MM3 CBC Comment AUTO DIFF Differential Comment AUTO DIFF CONFIRMED Toxic Vacuolation PRESENT Platelet Estimate HIGH Platelet Morphology Comment NORMAL Polychromasia 2.9 % Target Cells 1+ Ovalocytes 1+ Acanthocytes OCC Reticulocyte Count 2.6 % Absolute Reticulocyte Count 85.7 MIL/L Prothrombin Time 11.1 SEC Prothromb Time International Ratio 1.1 RATIO Activated Partial Thromboplast Time 21.5 SEC Blood Urea Nitrogen 10 MG/DL Creatinine 0.50 MG/DL Random Glucose 83 MG/DL Total Protein 7.9 GM/DL Albumin 3.2 GM/DL Calcium Level 8.2 MG/DL Alkaline Phosphatase 72 U/L Aspartate Amino Transf (AST/SGOT) 19 U/L Alanine Aminotransferase (ALT/SGPT) 8 U/L Total Bilirubin 0.3 MG/DL Sodium Level 137 MEQ/L Potassium Level 3.5 MEQ/L Chloride Level 102 MEQ/L Carbon Dioxide Level 25.8 MEQ/L Anion Gap 9 MEQ/L Estimat Glomerular Filtration Rate 171 ML/MIN Iron Level 12 MCG/DL Total Iron Binding Capacity 497 MCG/DL Percent Iron Saturation 2.4 % Ferritin 2 NG/ML Thyroid Stimulating Hormone 3rd Gen 0.669 uIU/ML Alden Mehta Aug 08, 2017 21:27
--- NOTE | 2017-08-08 21:53 | PD ---
HPI Chief Complaint: Abdominal Pain Time Seen by Provider: 21:27 Travel History International Travel<30 days: No Contact w/Intl Traveler<30days: No Traveled to known affect area: No History of Present Illness HPI 36-year-old female complains of lightheadedness, generalized malaise and weakness, low back pain and vaginal bleeding. Patient has history of uterine fibroids and menorrhagia and anemia that required blood transfusion in the past. Patient was given prescription for iron pills the past. Patient states that she started having low back pain and excessive vaginal bleeding for the past 3 days. Patient states that the low back pain aching pain localized to the low back area. Patient denies any pain radiation. Patient states that she started having aching headache this morning. Patient complain of lightheadedness dizziness and generalized malaise and weakness. Patient states that she has near passing out episodes today. PFSH Past Medical History Anemia: Yes Cancer: No Cardiovascular Problems: Yes Diminished Hearing: No Endocrine: No Genitourinary: No Immune Disorder: No Musculoskeletal: No Neurologic: Yes Psychiatric: No Reproductive: Yes (heavy menstration) Respiratory: No Immunizations Current: Yes Migraines: Yes Tetanus Vaccination: < 5 Years Influenza Vaccination: Yes ?: Not LMP: 08/06/2017 Tubal Ligation: Yes Past Surgical History Section: Yes (X3) Gynecologic Surgery: Yes ( section x3) Other Surgery: Yes Family History Family Hypercholesterolemia: Yes Social History Alcohol Use: Yes (occasional) Tobacco Use: Yes (1/3 PPD) Substance Use: Yes (MARIJUANA) Allergies-Medications (Allergen,Severity, Reaction): Coded Allergies: ibuprofen (Verified Allergy, Severe, 08/08/17) "make me bleed out more" tramadol (Unverified Allergy, Severe, Nausea/Vomiting, 08/08/17) Reported Meds & Prescriptions Reported Meds & Active Scripts Active Provera (Medroxyprogesterone Acetate) 10 Mg Tab 10 Mg PO DIRECTED 14 Days 10 mg po twice daily for seven days then 10 mg po daily for seven days- Reported Ferrous Sulfate 325 Mg (65 Mg Iron) Tablet 325 Mg PO TID Review of Systems General / Constitutional: No: Fever Eyes: No: Visual changes HENT: Positive: Lightheadedness, No: Headaches Cardiovascular: No: Chest Pain or Discomfort Respiratory: No: Shortness of Breath Gastrointestinal: No: Abdominal Pain Genitourinary: No: Dysuria Musculoskeletal: No: Pain Skin: No Rash Neurologic: No: Weakness Psychiatric: No: Depression Endocrine: No: Polydipsia Hematologic/Lymphatic: No: Easy Bruising Physical Exam Narrative GENERAL: Well-nourished, well-developed patient. SKIN: Focused skin assessment warm/dry. HEAD: Normocephalic. EYES: No scleral icterus. No injection or drainage. NECK: Supple, trachea midline. No JVD or lymphadenopathy. CARDIOVASCULAR: Regular rate and rhythm without murmurs, gallops, or rubs. RESPIRATORY: Breath sounds equal bilaterally. No accessory muscle use. GASTROINTESTINAL: Abdomen soft, nondistended. Patient has soft tissue mass on the lower abdomen suprapubic area. Nontender on palpation. MUSCULOSKELETAL: No cyanosis, or edema. BACK: Nontender without obvious deformity. No CVA tenderness. Neurologic exam normal. Data Data Last Documented VS Vital Signs Date Time Temp Pulse Resp B/P (MAP) Pulse Ox O2 Delivery O2 Flow Rate FiO2 08/08/17 21:16 98.5 98 16 132/69 (90) 100 Room Air Orders Orders Complete Blood Count With Diff (08/08/17 21:44) Comprehensive Metabolic Panel (08/08/17 21:44) Prothrombin Time / Inr (Pt) (08/08/17 21:44) Act Partial Throm Time (Ptt) (08/08/17 21:44) Urinalysis - C+S If Indicated (08/08/17 21:44) Thyroid Stimulating Hormone (08/08/17 21:44) Iv Access Insert/Monitor (08/08/17 21:44) Ecg Monitoring (08/08/17 21:44) Oximetry (08/08/17 21:44) Type And Screen (08/08/17 21:44) Ed Urine Pregnancytest Poc (08/08/17 21:44) Labs Laboratory Tests Test 08/08/17 22:00 White Blood Count 10.8 TH/MM3 Red Blood Count 3.31 MIL/MM3 Hemoglobin 5.2 GM/DL Hematocrit 18.1 % Mean Corpuscular Volume 54.5 FL Mean Corpuscular Hemoglobin 15.7 PG Mean Corpuscular Hemoglobin Concent 28.8 % Red Cell Distribution Width 21.2 % Platelet Count 480 TH/MM3 Mean Platelet Volume 8.2 FL Neutrophils (%) (Auto) 77.1 % Lymphocytes (%) (Auto) 14.1 % Monocytes (%) (Auto) 5.9 % Eosinophils (%) (Auto) 2.3 % Basophils (%) (Auto) 0.6 % Neutrophils # (Auto) 8.3 TH/MM3 Lymphocytes # (Auto) 1.5 TH/MM3 Monocytes # (Auto) 0.6 TH/MM3 Eosinophils # (Auto) 0.2 TH/MM3 Basophils # (Auto) 0.1 TH/MM3 CBC Comment AUTO DIFF Prothrombin Time 11.1 SEC Prothromb Time International Ratio 1.1 RATIO Activated Partial Thromboplast Time 21.5 SEC MDM Medical Decision Making Medical Screen Exam Complete: Yes Emergency Medical Condition: Yes Interpretation(s) 22:37 PM. CBC with hemoglobin 5.2 hematocrit 18.1. MCV 54.5. Differential Diagnosis Differential diagnosis including severe anemia, dehydration, electrolyte imbalance, menorrhagia, uterine fibroid. Narrative Course 36-year-old female with lightheadedness, generalized malaise and weakness, near- syncope. Patient has history of uterine fibroids with excessive bleeding in the past that required blood transfusion. Normal saline solution 1 25 cc an hour. Diagnosis Primary Impression: Severe anemia Additional Impressions: Menorrhagia Qualified Codes: N92.0 - Excessive and frequent menstruation with regular cycle Uterine fibroid Qualified Codes: D25.9 - Leiomyoma of uterus, unspecified Admitting Information Admitting Physician Requests: Admit Holland Salazar MD Aug 08, 2017 21:52
[2017-08-08 22:22] LABS: AUTOMATED NEUTROPHIL # 8.3 TH/MM3 (1.8-7.7); BASOPHIL # 0.1 TH/MM3 (0-0.2); BASOPHIL % 0.6 % (0.0-2.0); EOSINOPHIL # 0.2 TH/MM3 (0-0.4); EOSINOPHIL % 2.3 % (0.0-4.0); LYMPH % 14.1 % (9.0-44.0); LYMPHOCYTE # 1.5 TH/MM3 (1.0-4.8); MEAN CELL VOLUME 54.5 FL (80.0-100.0); MEAN CORPUSCULAR HEMOGLOBIN 15.7 PG (27.0-34.0); MEAN PLATELET VOLUME 8.2 FL (7.0-11.0); MONO % 5.9 % (0.0-8.0); MONOCYTE # 0.6 TH/MM3 (0-0.9); NEUT % 77.1 % (16.0-70.0); PLATELET COUNT 480 TH/MM3 (150-450); RED BLOOD COUNT 3.31 MIL/MM3 (4.00-5.30); RED CELL DISTRIBUTION WIDTH 21.2 % (11.6-17.2); WHITE BLOOD COUNT 10.8 TH/MM3 (4.0-11.0)
[2017-08-08 22:28] LABS: MEAN CORPUSCULAR HGB CONC 28.8 % (32.0-36.0)
[2017-08-08 22:29] LABS: HEMATOCRIT 18.1 % (35.0-46.0); HEMOGLOBIN 5.2 GM/DL (11.6-15.3)
[2017-08-08 22:34] LABS: INTERNATIONAL NORMALIZED RATIO 1.1 RATIO; PROTHROMBIN TIME - PATIENT 11.1 SEC (9.8-11.6)
[2017-08-08] MEDS ORDERED: SODIUM CHLOR 0.9% 250 ML INJ 250 ML IV ONE (22:45)
[2017-08-08 22:49] LABS: ALBUMIN 3.2 GM/DL (3.4-5.0); ALT (GPT) 8 U/L (10-53); AST (GOT) 19 U/L (15-37); BICARBONATE 25.8 MEQ/L (21.0-32.0); BLOOD UREA NITROGEN 10 MG/DL (7-18); CALCIUM 8.2 MG/DL (8.5-10.1); CHLORIDE 102 MEQ/L (98-107); GLOMERULAR FILTRATION RATE 171 ML/MIN (>89); GLUCOSE,RANDOM 83 MG/DL (74-106); SODIUM (NA) 137 MEQ/L (136-145)
[2017-08-08 22:58] LABS: RETIC # 85.7 MIL/L (20.0-150.0); RETIC % 2.6 % (0.4-3.0)
[2017-08-08 22:59] LABS: ALKALINE PHOSPHATASE 72 U/L (45-117); TOTAL BILIRUBIN ADULT 0.3 MG/DL (0.2-1.0); TOTAL PROTEIN 7.9 GM/DL (6.4-8.2)
[2017-08-08 23:09] LABS: % SATURATION IRON PROFILE 2.4 % (20-50); IRON (FE) 12 MCG/DL (50-170); OVALOCYTES 1+ (NORMAL); TARGET CELLS 1+ (NORMAL); TOTAL IRON BINDING CAPACITY 497 MCG/DL (250-450)
[2017-08-08 23:10] LABS: ACANTHOCYTES OCC (NORMAL)
[2017-08-08 23:12] LABS: FERRITIN 2 NG/ML (8-252); POLYCHROMASIA 2.9 % (0.0-1.9)
[2017-08-08 23:13] LABS: TOXIC VACUOLATION PRESENT (NONE SEEN)
[2017-08-08] MEDS ORDERED: SODIUM CHLORIDE 0.9% FLUSH 10 ML FLUSH IV FLUSH PRN (23:15)
[2017-08-08] MEDS ORDERED: ACETAMINOPHEN 325 MG TAB PO PRN (23:15)
[2017-08-08] MEDS ORDERED: ONDANSETRON HCL 4 MG/2 ML VIAL IVP PRN (23:15)
[2017-08-08] MEDS ORDERED: NALOXONE HCL 0.4 MG/ML AMP IV PUSH PRN (23:15)
[2017-08-08] MEDS ORDERED: ACETAMINOPHEN/HYDROcodone 325 MG/5 MG TAB PO PRN (23:45)
--- NOTE | 2017-08-08 23:45 | HHI.HP ---
HPI Service [facility] Primary Care Physician No Primary Care Physician Admission Diagnosis severe anemia. Menorrhagia. Uterine fibroid. Diagnoses: Chief Complaint: fatigue, heavy bleeding Travel History International Travel<30 Days: No Contact w/Intl Traveler <30 Da: No Traveled to Known Affected Are: No History of Present Illness 36 y/o female with a history of anemia and uterine fibroids presents to the ED with complaints of fatigue and heavy bleeding. Patient states she started her menstrual cycle on Wednesday and is bleeding heavily. She was at work today and felt very fatigue, this symptoms occur when her hemoglobin is low. She was last seen in Apr and per [facility] she was told to follow up outpatient. She did not follow up due to insurance purposes. She states the Provera given in April did not help with her bleeding. She states she just wants to have the surgery but can not until her medicaid is approved. She denies any chest pain, sob, fever or chills. She does complain of aching back pain from cramps, with no associated symptoms. Review of Systems Except as stated in HPI: all other systems reviewed are Neg Past Family Social History Past Medical History Anemia Uterine fibroids Past Surgical History Tubal Reported Medications Reported Meds & Active Scripts Active Provera (Medroxyprogesterone Acetate) 10 Mg Tab 10 Mg PO DIRECTED 14 Days 10 mg po twice daily for seven days then 10 mg po daily for seven days- Reported Ferrous Sulfate 325 Mg (65 Mg Iron) Tablet 325 Mg PO TID Allergies: Coded Allergies: ibuprofen (Verified Allergy, Severe, 08/08/17) "make me bleed out more" tramadol (Unverified Allergy, Severe, Nausea/Vomiting, 08/08/17) Active Ordered Medications Current Medications Medications (Trade) Dose Ordered Sig/Bina Route Start Time Stop Time Status Last Admin Sodium Chloride 250 ml @ 15 mls/hr ONCE ONCE IV 08/08/17 22:45 08/09/17 15:24 08/09/17 02:38 (NS Flush) 2 ml UNSCH PRN IV FLUSH 08/08/17 23:15 (NS Flush) 2 ml BID IV FLUSH 08/09/17 09:00 (Tylenol) 650 mg Q4H PRN PO 08/08/17 23:15 (Zofran Inj) 4 mg Q6H PRN IVP 08/08/17 23:15 (Narcan Inj) 0.4 mg UNSCH PRN IV PUSH 08/08/17 23:15 ([place]oston 5-325 Mg) 1 tab Q4H PRN PO 08/08/17 23:45 Family History Hypertension, hyperlipidemia, breast cancer runs in her family. Social History Tobacco use: 1 pack per week Alcohol use: Denies Illicit drug use: Marijuana Physical Exam Vital Signs Vital Signs Date Time Temp Pulse Resp B/P (MAP) Pulse Ox O2 Delivery O2 Flow Rate FiO2 08/08/17 21:16 98.5 98 16 132/69 (90) 100 Room Air Physical Exam GENERAL: This is a well-nourished, well-developed patient, in no apparent distress. SKIN: No rashes, ecchymoses or lesions. Cool and dry. HEAD: Atraumatic. Normocephalic. EYES: Pupils equal round and reactive. ENT: Nose without bleeding, purulent drainage or septal hematoma. Airway patent. NECK: Trachea midline. No JVD or lymphadenopathy. CARDIOVASCULAR: Regular rate and rhythm without murmurs, gallops, or rubs. RESPIRATORY: Clear to auscultation. Breath sounds equal bilaterally. No wheezes , rales, or rhonchi. GASTROINTESTINAL: Abdomen soft, non-tender, nondistended. MUSCULOSKELETAL: Extremities without clubbing, cyanosis, or edema. No joint tenderness, effusion, or edema noted. NEUROLOGICAL: Awake and alert. Motor and sensory grossly within normal limits. Normal speech. Laboratory Laboratory Tests Test 08/08/17 22:00 08/08/17 23:15 White Blood Count 10.8 Red Blood Count 3.31 Hemoglobin 5.2 Hematocrit 18.1 Mean Corpuscular Volume 54.5 Mean Corpuscular Hemoglobin 15.7 Mean Corpuscular Hemoglobin Concent 28.8 Red Cell Distribution Width 21.2 Platelet Count 480 Mean Platelet Volume 8.2 Neutrophils (%) (Auto) 77.1 Lymphocytes (%) (Auto) 14.1 Monocytes (%) (Auto) 5.9 Eosinophils (%) (Auto) 2.3 Basophils (%) (Auto) 0.6 Neutrophils # (Auto) 8.3 Lymphocytes # (Auto) 1.5 Monocytes # (Auto) 0.6 Eosinophils # (Auto) 0.2 Basophils # (Auto) 0.1 CBC Comment AUTO DIFF Differential Comment AUTO DIFF CONFIRMED Toxic Vacuolation PRESENT Platelet Estimate HIGH Platelet Morphology Comment NORMAL Polychromasia 2.9 Target Cells 1+ Ovalocytes 1+ Acanthocytes OCC Reticulocyte Count 2.6 Absolute Reticulocyte Count 85.7 Prothrombin Time 11.1 Prothromb Time International Ratio 1.1 Activated Partial Thromboplast Time 21.5 Blood Urea Nitrogen 10 Creatinine 0.50 Random Glucose 83 Total Protein 7.9 Albumin 3.2 Calcium Level 8.2 Alkaline Phosphatase 72 Aspartate Amino Transf (AST/SGOT) 19 Alanine Aminotransferase (ALT/SGPT) 8 Total Bilirubin 0.3 Sodium Level 137 Potassium Level 3.5 Chloride Level 102 Carbon Dioxide Level 25.8 Anion Gap 9 Estimat Glomerular Filtration Rate 171 Iron Level 12 Total Iron Binding Capacity 497 Percent Iron Saturation 2.4 Ferritin 2 Thyroid Stimulating Hormone 3rd Gen 0.669 Result Diagram: 08/08/17219908/08/172199 Caprini VTE Risk Assessment Caprini VTE Risk Assessment: No/Low Risk (score <= 1) Caprini Risk Assessment Model Point Value = 1 Point Value = 2 Point Value = 3 Point Value = 5 Age 41-60 Minor surgery BMI > 25 kg/m2 Swollen legs Varicose veins or History of unexplained or recurrent spontaneous Oral contraceptives or hormone replacement Sepsis (< 1 month) Serious lung disease, including pneumonia (< 1 month) Abnormal pulmonary function Acute myocardial infarction Congestive heart failure (< 1 month) History of inflammatory bowel disease Medical patient at bed rest Age 61-74 Arthroscopic surgery Major open surgery (> 45 min) Laparoscopic surgery (> 45 min) Malignancy Confined to bed (> 72 hours) Immobilizing plaster cast Central venous access Age >= 75 History of VTE Family history of VTE Factor V Leiden Prothrombin [id number] Lupus anticoagulant Anticardiolipin antibodies Elevated serum homocysteine Heparin-induced thrombocytopenia Other congenital or acquired thrombophilia Stroke (< 1 month) Elective arthroplasty Hip, pelvis, or leg fracture Acute spinal cord injury (< 1 month) Prophylaxis Regimen Total Risk Factor Score Risk Level Prophylaxis Regimen 0-1 Low Early ambulation 2 Moderate Order ONE of the following: *Sequential Compression Device (SCD) *Heparin 5000 units SQ BID 3-4 Higher Order ONE of the following medications: *Heparin 5000 units SQ TID *Enoxaparin/Lovenox 40 mg SQ daily (WT < 150 kg, CrCl > 30 mL/min) *Enoxaparin/Lovenox 30 mg SQ daily (WT < 150 kg, CrCl > 10-29 mL/min) *Enoxaparin/Lovenox 30 mg SQ BID (WT < 150 kg, CrCl > 30 mL/min) AND/OR *Sequential Compression Device (SCD) 5 or more Highest Order ONE of the following medications: *Heparin 5000 units SQ TID (Preferred with Epidurals) *Enoxaparin/Lovenox 40 mg SQ daily (WT < 150 kg, CrCl > 30 mL/min) *Enoxaparin/Lovenox 30 mg SQ daily (WT < 150 kg, CrCl > 10-29 mL/min) *Enoxaparin/Lovenox 30 mg SQ BID (WT < 150 kg, CrCl > 30 mL/min) AND *Sequential Compression Device (SCD) Assessment and Plan Problem List: (1) Symptomatic anemia ICD Code: D64.9 - Anemia, unspecified Status: Acute (2) Urinary tract infection ICD Code: N39.0 - Urinary tract infection, site not specified Status: Acute Assessment and Plan 36 y/o female with a history of anemia and uterine fibroids presents to the ED with complaints of fatigue and heavy bleeding. Symptomatic anemia, hgb 5.2, due to menorrhagia and uterine fibroids -Transfuse 3 units prbcs -resume home iron PO -CBC in AM -Patient needs follow up with [facility] outpatient, case management consulted for assistance UTI, abnormal UA with large leukocyte esterase -Rocephin IV -Urine culture pending DVT prophylaxis: SCDs Discussed Condition With Patient and RN Physician Certification 2 Midnight Certification Type: Admission for Inpatient Services Order for Inpatient Services The services are ordered in accordance with Medicare regulations or non- Medicare payer requirements, as applicable. In the case of services not specified as inpatient-only, they are appropriately provided as inpatient services in accordance with the 2-midnight benchmark. Estimated LOS (days): 2 days is the estimated time the patient will need to remain in the hospital, assuming treatment plan goals are met and no additional complications. Post-Hospital Plan: Home Problem Qualifiers (1) Urinary tract infection: Qualified Codes: N30.00 - Acute cystitis without hematuria Lianne Alvares Aug 08, 2017 23:45
[2017-08-09] VITALS (11 sets, daily range): BP systolic 98–129; BP diastolic 50–69; PULSE 65–90; RESP 16–18; TEMP 97.2–98.9; O2SAT 100
[2017-08-09 00:25] LABS: AMORPHOUS SEDIMENT, URINE RARE; BILIRUBIN, URINE NEG (NEG); BLOOD, URINE LARGE (NEG); GLUCOSE,URINE NEG (NEG); KETONE, URINE 40 mg/dL (NEG); MUCUS URINE FEW /lpf (OCC); NITRITE,URINE NEG (NEG); SQUAMOUS EPITHELIAL CELL URINE 8 /hpf (0-5); URINE COLOR LIGHT-RED (YELLW/STRAW); URINE LEUKOCYTE ESTERASE LARGE (NEG)
[2017-08-09] MEDS ORDERED: cefTRIAXone INJ 1,000 MG in SODIUM CHLORIDE 0.9% INJ 100 ML IV SCH (04:00)
--- NOTE | 2017-08-09 07:13 | HHI.PR ---
Subjective Remarks Pt seen and examined. AFVSS. Admitted overnight for symptomatic anemia secondary to abnormal uterine bleeding. Upon review of EMR, patient has had multiple admissions for this where she gets blood transfusions and then is referred to [facility] for hysterectomy. She reports she dropped the ball on reapplying for her Medicaid and since losing it a couple years back she has had issues with access. She states her tubes are tied and she is done having children so she wants a hysterectomy. Has tried several controls progestin compounds but nothing helped the bleeding. Periods occur monthly and last 5-7 days. Cramping is severe and she compares it to childbirth; states the cramping precedes her period sometimes by a week and lasts until her period is over. Motrin helps. She reports since finishing the blood transfusion she is feeling better but still feels a little weak. She states she will likely want to go home later today once she gets up and starts feeling better. Denies CP, SOB, N/V, dizziness, or headache. She takes iron pills three times daily and has enough at home. Objective Vitals Vital Signs Date Time Temp Pulse Resp B/P (MAP) Pulse Ox O2 Delivery O2 Flow Rate FiO2 08/09/17 06:03 98.4 87 17 106/62 (77) 100 08/09/17 06:03 98.4 87 17 106/62 100 08/09/17 04:15 89 08/09/17 02:48 98.1 80 16 109/50 100 08/09/17 02:48 98.1 80 16 109/50 (69) 100 08/09/17 02:33 97.9 90 16 98/53 100 08/09/17 00:16 89 16 124/68 (86) 100 08/09/17 00:16 98.9 85 16 129/69 (89) 100 08/08/17 21:16 98.5 98 16 132/69 (90) 100 Room Air I/O 08/08/17 08/08/17 08/08/17 08/09/17 08/09/17 08/09/17 07:00 15:00 23:00 07:00 15:00 23:00 Intake Total 420 ml Balance 420 ml Intake Packed Cells 400 ml Blood Product IV Normal Saline Flush 20 ml Result Diagram: 08/08/17219908/08/172199 Objective Remarks GENERAL: WN, WD female laying comfortably in bed in NAD. SKIN: Warm and dry. HEENT: Pupils equal and round. Pale conjunctiva. MMM. NECK: Supple no tender LAD or JVD. HEART: RRR no m/r/g. LUNGS: CTAB without wheezes or crackles. ABDOMEN: Soft, NT, ND. EXTREMITIES: No LE edema or calf tenderness. NEURO: Awake and alert. PSYCH: Appropriate mood and affect. A/P Problem List: (1) Symptomatic anemia ICD Code: D64.9 - Anemia, unspecified Status: Acute (2) Urinary tract infection ICD Code: N39.0 - Urinary tract infection, site not specified Status: Acute Assessment and Plan 36 year old female with known history of uterine fibroids and abnormal uterine bleeding requiring multiple hospital stays and blood transfusions is admitted for symptomatic anemia. Anemia secondary to uterine bleeding Severe microcytic anemia with H&H 5.2/18.1 on admission Hemodynamically stable 3 units PRBCs administered Post-transfusion H&H improved to 9.2/28.3 Iron studies all consistent with iron-deficiency anemia secondary to bleeding ( low iron, elevated TIBC, low ferritin, and low % sat) Continue iron supplements at home Abnormal uterine bleeding Has had prior [facility] consults in the past all recommending outpatient [facility] f/u but patient with insurance issues Imaging in the past has ruled out malignancy Case management consulted to see if patient can be seen by local P[facility] or with assistance for obtaining Medicaid Patient is a smoker therefore estrogen containing compounds should be avoided. Furthermore, she states none of the OCPs she's taken has ever helped Ultimately patient needs a hysterectomy which she wants since she is done childbearing Will provide Rx for Motrin for severe cramps Discharge Planning D/C later today if patient feels ready Problem Qualifiers (1) Urinary tract infection: Qualified Codes: N30.00 - Acute cystitis without hematuria Joya Calvin MD Aug 09, 2017 07:13
[2017-08-09] MEDS ORDERED: SODIUM CHLORIDE 0.9% FLUSH 10 ML FLUSH IV FLUSH SCH (09:00)
[2017-08-09 13:30] LABS: AUTOMATED NEUTROPHIL # 4.4 TH/MM3 (1.8-7.7); BASOPHIL # 0.1 TH/MM3 (0-0.2); BASOPHIL % 0.7 % (0.0-2.0); EOSINOPHIL # 0.5 TH/MM3 (0-0.4); EOSINOPHIL % 5.9 % (0.0-4.0); HEMATOCRIT 28.3 % (35.0-46.0); HEMOGLOBIN 9.2 GM/DL (11.6-15.3); LYMPH % 27.2 % (9.0-44.0); LYMPHOCYTE # 2.1 TH/MM3 (1.0-4.8); MEAN CELL VOLUME 67.4 FL (80.0-100.0); MEAN CORPUSCULAR HEMOGLOBIN 21.9 PG (27.0-34.0); MEAN CORPUSCULAR HGB CONC 32.5 % (32.0-36.0); MEAN PLATELET VOLUME 8.3 FL (7.0-11.0); MONO % 10.5 % (0.0-8.0); MONOCYTE # 0.8 TH/MM3 (0-0.9); NEUT % 55.7 % (16.0-70.0); PLATELET COUNT 397 TH/MM3 (150-450); RED CELL DISTRIBUTION WIDTH 32.5 % (11.6-17.2); WHITE BLOOD COUNT 7.9 TH/MM3 (4.0-11.0)
[2017-08-09 13:56] LABS: BICARBONATE 26.6 MEQ/L (21.0-32.0); CALCIUM 8.2 MG/DL (8.5-10.1); CREATININE 0.52 MG/DL (0.50-1.00)
[2017-08-09 14:15] LABS: SPHEROCYTES OCC (NORMAL)
[2017-08-09 14:16] LABS: ACANTHOCYTES OCC (NORMAL)
[2017-08-09] MEDS ORDERED: IBUP1TAB7 PO (14:26)
--- NOTE | 2017-08-09 14:27 | HHI.DCPOC ---
Discharge Care Plan Diagnosis: (1) Abnormal uterine bleeding (2) Symptomatic anemia Goals to Promote Your Health * To prevent worsening of your condition and complications * To maintain your health at the optimal level Directions to Meet Your Goals Take your medications as prescribed Follow your dietary instruction Follow activity as directed Keep your appointments as scheduled Take your immunizations and boosters as scheduled If your symptoms worsen call your PCP, if no PCP go to Urgent Care Center or Emergency Room Smoking is Dangerous to Your Health. Avoid second hand smoke Call the 24-hour hour crisis hotline for domestic abuse at Joya Calvin MD Aug 09, 2017 14:27
== END 2017-08-09 17:53 | disposition home or self-care (01) | DRG 812 ==
LOC: NEPD 21:12 → NEDA 22:45 → N06B 08-09 00:12
PROVIDERS: ADMIT Family Medicine; ATTEND Family Medicine
PROC: 30233N1 Transfusion of Nonautologous Red Blood Cells into Peripheral Vein, Percutaneous Approach (ICD-10-PCS; principal; 2017-08-09)
DX: D50.0 Iron deficiency anemia secondary to blood loss (chronic) (principal); N39.0 Urinary tract infection, site not specified; D25.9 Leiomyoma of uterus, unspecified; N92.0 Excessive and frequent menstruation with regular cycle; F17.200 Nicotine dependence, unspecified, uncomplicated; F12.90 Cannabis use, unspecified, uncomplicated
CPT/HCPCS: 36430; 80048; 80053; 81001; 82668; 82728; 83540; 83550; 84443; 84703; 85025; 85044; 85610; 85730; 86850; 86900; 86901; 86902; 86920; 86922; 87086; J0696; J7050; P9016

== ENCOUNTER 2017-10-21 22:09 | Emergency (ER) | payer MEDICAID ==
[~2017-10-21 22:09] MED LIST changes: +IBUP1TAB7 PO; -PROV10TA PO
[2017-10-21 22:14] VITALS: BP 131/68; PULSE 103; RESP 16; TEMP 99.2; O2SAT 100
[2017-10-21] MEDS ORDERED: TYLETAB34 PO (22:51)
[2017-10-21] MEDS ORDERED: PENI500T PO (22:51)
--- NOTE | 2017-10-21 23:21 | PD ---
HPI Chief Complaint: Oral / Dental Pain or Problem Time Seen by Provider: 22:45 Travel History International Travel<30 days: No Contact w/Intl Traveler<30days: No Traveled to known affect area: No History of Present Illness HPI This patient complains of dental pain. It is her left lower jaw. No injury. No fever. She is having trouble finding a dentist. Duration 2 days PFSH Past Medical History Anemia: Yes Autoimmune Disease: No Cancer: No Cardiovascular Problems: Yes Diabetes: No Diminished Hearing: No Endocrine: No Genitourinary: No Immune Disorder: No Musculoskeletal: No Neurologic: Yes Psychiatric: No Reproductive: Yes (HEAVY PERIODS) Respiratory: No Immunizations Current: Yes Migraines: Yes Sickle Cell Disease: No Thyroid Disease: No Tetanus Vaccination: < 5 Years ?: Not LMP: 09/28/2017 Tubal Ligation: Yes Past Surgical History Section: Yes (X3) Gynecologic Surgery: Yes (C/S X3) Other Surgery: Yes Family History Family Hypercholesterolemia: Yes Social History Alcohol Use: Yes (occasional) Tobacco Use: Yes (06/23 PPD) Substance Use: Yes (MARIJUANA) Allergies-Medications (Allergen,Severity, Reaction): Coded Allergies: tramadol (Unverified Allergy, Severe, Nausea/Vomiting, 10/21/17) Reported Meds & Prescriptions Reported Meds & Active Scripts Active Tylenol-Codeine #3 (Acetaminophen-Codeine) 300-30 mg Tab 1 Tab PO Q6H PRN Penicillin V Potassium 500 Mg Tab 500 Mg PO Q8H Reported Ferrous Sulfate 325 Mg (65 Mg Iron) Tablet 325 Mg PO TID Review of Systems General / Constitutional: No: Fever HENT: No: Headaches Cardiovascular: No: Chest Pain or Discomfort Respiratory: No: Cough Physical Exam Narrative NECK: Symmetrical appearance, midline trachea. No mass or crepitus. Thyroid without enlargement, tenderness, or mass. SKIN: Focused skin assessment reveals no rash or ulcers. Skin is warm and dry. Palpation shows no induration or nodules. Oral cavity: Poor dentition throughout. I do not see any gingival abscess or obvious tooth tenderness Data Data Last Documented VS Vital Signs Date Time Temp Pulse Resp B/P (MAP) Pulse Ox O2 Delivery O2 Flow Rate FiO2 10/21/17 22:14 99.2 103 16 131/68 (89) 100 MDM Medical Decision Making Medical Screen Exam Complete: Yes Emergency Medical Condition: Yes Medical Record Reviewed: Yes Differential Diagnosis Dental cavity, dental pain, gingivitis Narrative Course I have reviewed the patient's electronic medical record. I wrote her some penicillin and some Tylenol with codeine Will need dental follow-up Diagnosis Primary Impression: Pain, dental Additional Instructions: The patient was warned about potential sedation for the medications they will receive on prescription. Follow-up with dentist Med/Other Pt SpecificInfo: Prescription(s) given Scripts Acetaminophen-Codeine (Tylenol-Codeine #3) 300-30 mg Tab 1 TAB PO Q6H Y for PAIN, #10 TAB 0 Refills Prov: Kelvin Malik MD 10/21/17 Penicillin V Potassium (Penicillin V Potassium) 500 Mg Tab 500 MG PO Q8H for Infection, #20 TAB 0 Refills Prov: Kelvin Malik MD 10/21/17 Disposition: 01 DISCHARGE HOME Condition: Stable Kelvin Malik MD October 21, 2017 23:21
== END 2017-10-21 23:33 | disposition home or self-care (01) ==
LOC: NEPD 22:09
DX: K08.89 Other specified disorders of teeth and supporting structures (principal); F12.90 Cannabis use, unspecified, uncomplicated; F17.200 Nicotine dependence, unspecified, uncomplicated
CPT/HCPCS: 99283

== ENCOUNTER 2017-10-28 22:12 | Observation (INO) | payer MEDICAID ==
[~2017-10-28] VITALS: Ht 160 cm; Wt 68.0 kg
[~2017-10-28 22:12] MED LIST changes: -IBUP1TAB7 PO; +PENI500T PO; +TYLETAB34 PO
[2017-10-28 22:14] VITALS: BP 146/69; PULSE 115; RESP 14; TEMP 99.1; O2SAT 100
--- NOTE | 2017-10-28 23:32 | PD ---
HPI Chief Complaint: General Weakness Time Seen by Provider: 23:20 Travel History International Travel<30 days: No Contact w/Intl Traveler<30days: No Traveled to known affect area: No History of Present Illness HPI 37yo F with PMH of anemia and uterine fibroids here requesting to have her hemoglobin checked. Pt has been with generalized weakness for a few days. Vaginal bleeding had stopped 2 days ago. Last time pt felt this way, her hemoglobin was 5.2 and she needed blood transfusion in 07/2017. Denies any fever , chest pain, sob, n/v, abdominal pain, focal weakness or numbness. PFSH Past Medical History Anemia: Yes Autoimmune Disease: No Cardiovascular Problems: Yes Diabetes: No Diminished Hearing: No Endocrine: No Genitourinary: No Immune Disorder: No Medical other: Yes (LOW HGB, IRON) Musculoskeletal: No Neurologic: Yes Psychiatric: No Reproductive: Yes (HEAVY PERIODS) Respiratory: No Immunizations Current: Yes Migraines: Yes Sickle Cell Disease: No Thyroid Disease: No ?: Not LMP: 10/24/17 Tubal Ligation: Yes Past Surgical History Section: Yes (X3) Gynecologic Surgery: Yes (C/S X3) Other Surgery: Yes Family History Family Hypercholesterolemia: Yes Social History Alcohol Use: Yes (occasional) Tobacco Use: Yes (06/23 PPD) Substance Use: Yes (MARIJUANA) Allergies-Medications (Allergen,Severity, Reaction): Coded Allergies: tramadol (Unverified Allergy, Severe, Nausea/Vomiting, 10/21/17) Reported Meds & Prescriptions Reported Meds & Active Scripts Active Tylenol-Codeine #3 (Acetaminophen-Codeine) 300-30 mg Tab 1 Tab PO Q6H PRN Penicillin V Potassium 500 Mg Tab 500 Mg PO Q8H Reported Ferrous Sulfate 325 Mg (65 Mg Iron) Tablet 325 Mg PO TID Review of Systems Except as stated in HPI: all other systems reviewed are Neg Physical Exam Narrative GENERAL: 37yo F in mild distress. SKIN: Focused skin assessment warm/dry. HEAD: Atraumatic. Normocephalic. EYES: Pupils equal and round. No scleral icterus. No injection or drainage. Pale conjunctiva. ENT: No nasal bleeding or discharge. Mucous membranes pink and moist. NECK: Trachea midline. No JVD. CARDIOVASCULAR: Regular rate and rhythm. + murmur appreciated. RESPIRATORY: No accessory muscle use. Clear to auscultation. Breath sounds equal bilaterally. GASTROINTESTINAL: Abdomen soft, non-tender, nondistended. MUSCULOSKELETAL: No obvious deformities. No clubbing. No cyanosis. No edema. NEUROLOGICAL: Awake and alert. No obvious cranial nerve deficits. Motor grossly within normal limits in all extremities. Sensation equal. Normal speech. PSYCHIATRIC: Appropriate mood and affect; insight and judgment normal. Data Data Last Documented VS Vital Signs Date Time Temp Pulse Resp B/P (MAP) Pulse Ox O2 Delivery O2 Flow Rate FiO2 10/28/17 22:14 99.1 115 14 146/69 (94) 100 Orders Orders Urinalysis - C+S If Indicated (10/28/17 23:15) Complete Blood Count With Diff (10/28/17 23:25) Basic Metabolic Panel (Bmp) (10/28/17 23:25) Prothrombin Time / Inr (Pt) (10/28/17 23:25) Act Partial Throm Time (Ptt) (10/28/17 23:25) Type And Screen (10/28/17 23:25) Electrocardiogram (10/28/17 ) Red Blood Cells (Rbc) (10/29/17 00:12) Blood Product Administration (10/29/17 00:12) Sodium Chlor 0.9% 250 Ml Inj (Ns 250 Ml (10/29/17 00:15) Labs Laboratory Tests Test 10/28/17 23:39 White Blood Count 6.5 TH/MM3 Red Blood Count 3.52 MIL/MM3 Hemoglobin 5.8 GM/DL Hematocrit 20.3 % Mean Corpuscular Volume 57.5 FL Mean Corpuscular Hemoglobin 16.5 PG Mean Corpuscular Hemoglobin Concent 28.6 % Red Cell Distribution Width 21.2 % Platelet Count 572 TH/MM3 Mean Platelet Volume 7.4 FL Neutrophils (%) (Auto) 45.5 % Lymphocytes (%) (Auto) 40.2 % Monocytes (%) (Auto) 8.3 % Eosinophils (%) (Auto) 5.5 % Basophils (%) (Auto) 0.5 % Neutrophils # (Auto) 2.9 TH/MM3 Lymphocytes # (Auto) 2.6 TH/MM3 Monocytes # (Auto) 0.5 TH/MM3 Eosinophils # (Auto) 0.4 TH/MM3 Basophils # (Auto) 0.0 TH/MM3 CBC Comment DIFF FINAL Differential Comment Prothrombin Time 10.9 SEC Prothromb Time International Ratio 1.1 RATIO Activated Partial Thromboplast Time 21.7 SEC Blood Urea Nitrogen 9 MG/DL Creatinine 0.61 MG/DL Random Glucose 72 MG/DL Calcium Level 8.8 MG/DL Sodium Level 138 MEQ/L Potassium Level 3.6 MEQ/L Chloride Level 104 MEQ/L Carbon Dioxide Level 26.3 MEQ/L Anion Gap 8 MEQ/L Estimat Glomerular Filtration Rate 135 ML/MIN [facility] Medical Decision Making Medical Screen Exam Complete: Yes Emergency Medical Condition: Yes Interpretation(s) EKG: NSR 83bpm. Normal axis. No ST segment elevation or depression. Differential Diagnosis Symptomatic anemia vs. dehydration vs. electrolyte abnormality Narrative Course 37yo F with history of severe anemia secondary to menorrhagia here with c/o generalized weakness for a few days. Pt is mildly tachycardic and likely anemic from her recent menorrhagia. She said she is no longer bleeding. Labs reviewed, no leukocytosis. Hemoglobin is low at 5.8. Ordered 2 units of PRBC. BMP unremarkable. Glucose 72, will give juice. Discussed with Dr. Love and accepted to her service. Diagnosis Primary Impression: Symptomatic anemia Admitting Information Admitting Physician Requests: Observation Soila Trejo DO October 28, 2017 23:32
[2017-10-29] VITALS (8 sets, daily range): BP systolic 72–136; BP diastolic 62–80; PULSE 70–88; RESP 14–20; TEMP 98–99; O2SAT 99–100
[2017-10-29 00:05] LABS: AUTOMATED NEUTROPHIL # 2.9 TH/MM3 (1.8-7.7); BASOPHIL % 0.5 % (0.0-2.0); EOSINOPHIL # 0.4 TH/MM3 (0-0.4); EOSINOPHIL % 5.5 % (0.0-4.0); LYMPH % 40.2 % (9.0-44.0); LYMPHOCYTE # 2.6 TH/MM3 (1.0-4.8); MEAN CELL VOLUME 57.5 FL (80.0-100.0); MEAN CORPUSCULAR HEMOGLOBIN 16.5 PG (27.0-34.0); MEAN PLATELET VOLUME 7.4 FL (7.0-11.0); MONO % 8.3 % (0.0-8.0); MONOCYTE # 0.5 TH/MM3 (0-0.9); NEUT % 45.5 % (16.0-70.0); PLATELET COUNT 572 TH/MM3 (150-450); RED BLOOD COUNT 3.52 MIL/MM3 (4.00-5.30); RED CELL DISTRIBUTION WIDTH 21.2 % (11.6-17.2); WHITE BLOOD COUNT 6.5 TH/MM3 (4.0-11.0)
[2017-10-29 00:06] LABS: MEAN CORPUSCULAR HGB CONC 28.6 % (32.0-36.0)
[2017-10-29 00:10] LABS: HEMATOCRIT 20.3 % (35.0-46.0); HEMOGLOBIN 5.8 GM/DL (11.6-15.3)
[2017-10-29] MEDS ORDERED: SODIUM CHLOR 0.9% 250 ML INJ 250 ML IV ONE ×2 (00:15→09:45)
[2017-10-29 00:19] LABS: INTERNATIONAL NORMALIZED RATIO 1.1 RATIO; PROTHROMBIN TIME - PATIENT 10.9 SEC (9.8-11.6)
[2017-10-29 00:23] LABS: BICARBONATE 26.3 MEQ/L (21.0-32.0); CALCIUM 8.8 MG/DL (8.5-10.1); CREATININE 0.61 MG/DL (0.50-1.00)
[2017-10-29] MEDS ORDERED: SENNOSIDES 8.6 MG TAB PO PRN (00:30)
[2017-10-29] MEDS ORDERED: MAGNESIUM HYDROXIDE SUSP 30 ML CUP PO PRN (00:30)
[2017-10-29] MEDS ORDERED: BISACODYL 10 MG SUPP RECTAL PRN (00:30)
[2017-10-29] MEDS ORDERED: METOCLOPRAMIDE HCL 10 MG/2 ML VIAL IV PUSH PRN (00:30)
[2017-10-29] MEDS ORDERED: SODIUM CHLORIDE 0.9% FLUSH 10 ML FLUSH IV FLUSH PRN (00:30)
[2017-10-29] MEDS ORDERED: LACTULOSE SYRUP 20 GM/30 ML CUP PO PRN (00:30)
[2017-10-29] MEDS ORDERED: ACETAMINOPHEN 325 MG TAB PO PRN (00:30)
--- NOTE | 2017-10-29 01:54 | HHI.HP ---
[facility] Jessy Douglas MD Admission Diagnosis Symptomatic anemia Diagnoses: Chief Complaint: fatigue Travel History International Travel<30 Days: No Contact w/Intl Traveler <30 Da: No Traveled to Known Affected Are: No History of Present Illness 37 y/o female with a history of uterine fibroids presents to the ED with complaints of fatigue. She states it is the feeling she gets when her hemoglobin is low. She states she just finished her menses 1 day ago. She has an appointment on Wednesday with a [facility] for her fibroids. She has had problems in the past getting established due to insurance, but states she now has insurance. Denies any chest pain or sob. Only complaint is fatigue. Review of Systems Except as stated in HPI: all other systems reviewed are Neg Past Family Social History Past Medical History Anemia Uterine fibroids Past Surgical History Tubal Reported Medications Reported Meds & Active Scripts Active Tylenol-Codeine #3 (Acetaminophen-Codeine) 300-30 mg Tab 1 Tab PO Q6H PRN Penicillin V Potassium 500 Mg Tab 500 Mg PO Q8H Reported Ferrous Sulfate 325 Mg (65 Mg Iron) Tablet 325 Mg PO TID Allergies: Coded Allergies: tramadol (Unverified Allergy, Severe, Nausea/Vomiting, 10/21/17) Family History Hypertension, hyperlipidemia, breast cancer runs in her family. Social History Tobacco use: 1 pack per week Alcohol use: Denies Illicit drug use: Marijuana Physical Exam Vital Signs Vital Signs Date Time Temp Pulse Resp B/P (MAP) Pulse Ox O2 Delivery O2 Flow Rate FiO2 10/28/17 22:14 99.1 115 14 146/69 (94) 100 Physical Exam GENERAL: This is a well-nourished, well-developed patient, in no apparent distress. SKIN: No rashes, ecchymoses or lesions. Cool and dry. EYES: Pupils equal round and reactive. Extraocular motions intact. No scleral icterus. No injection or drainage. CARDIOVASCULAR: Regular rate and rhythm without murmurs, gallops, or rubs. RESPIRATORY: Clear to auscultation. Breath sounds equal bilaterally. No wheezes , rales, or rhonchi. GASTROINTESTINAL: Abdomen soft, non-tender, nondistended. No hepato-splenomegaly , or palpable masses. No guarding. MUSCULOSKELETAL: Extremities without clubbing, cyanosis, or edema. No joint tenderness, effusion, or edema noted. No calf tenderness. NEUROLOGICAL: Awake and alert. Normal speech. Laboratory Laboratory Tests Test 10/28/17 23:39 White Blood Count 6.5 Red Blood Count 3.52 Hemoglobin 5.8 Hematocrit 20.3 Mean Corpuscular Volume 57.5 Mean Corpuscular Hemoglobin 16.5 Mean Corpuscular Hemoglobin Concent 28.6 Red Cell Distribution Width 21.2 Platelet Count 572 Mean Platelet Volume 7.4 Neutrophils (%) (Auto) 45.5 Lymphocytes (%) (Auto) 40.2 Monocytes (%) (Auto) 8.3 Eosinophils (%) (Auto) 5.5 Basophils (%) (Auto) 0.5 Neutrophils # (Auto) 2.9 Lymphocytes # (Auto) 2.6 Monocytes # (Auto) 0.5 Eosinophils # (Auto) 0.4 Basophils # (Auto) 0.0 CBC Comment DIFF FINAL Differential Comment Prothrombin Time 10.9 Prothromb Time International Ratio 1.1 Activated Partial Thromboplast Time 21.7 Blood Urea Nitrogen 9 Creatinine 0.61 Random Glucose 72 Calcium Level 8.8 Sodium Level 138 Potassium Level 3.6 Chloride Level 104 Carbon Dioxide Level 26.3 Anion Gap 8 Estimat Glomerular Filtration Rate 135 Result Diagram: 10/28/17 23310/[id number]/172338 Caprini VTE Risk Assessment Caprini VTE Risk Assessment: No/Low Risk (score <= 1) Caprini Risk Assessment Model Point Value = 1 Point Value = 2 Point Value = 3 Point Value = 5 Age 41-60 Minor surgery BMI > 25 kg/m2 Swollen legs Varicose veins or History of unexplained or recurrent spontaneous Oral contraceptives or hormone replacement Sepsis (< 1 month) Serious lung disease, including pneumonia (< 1 month) Abnormal pulmonary function Acute myocardial infarction Congestive heart failure (< 1 month) History of inflammatory bowel disease Medical patient at bed rest Age 61-74 Arthroscopic surgery Major open surgery (> 45 min) Laparoscopic surgery (> 45 min) Malignancy Confined to bed (> 72 hours) Immobilizing plaster cast Central venous access Age >= 75 History of VTE Family history of VTE Factor V Leiden Prothrombin [id number] Lupus anticoagulant Anticardiolipin antibodies Elevated serum homocysteine Heparin-induced thrombocytopenia Other congenital or acquired thrombophilia Stroke (< 1 month) Elective arthroplasty Hip, pelvis, or leg fracture Acute spinal cord injury (< 1 month) Prophylaxis Regimen Total Risk Factor Score Risk Level Prophylaxis Regimen 0-1 Low Early ambulation 2 Moderate Order ONE of the following: *Sequential Compression Device (SCD) *Heparin 5000 units SQ BID 3-4 Higher Order ONE of the following medications: *Heparin 5000 units SQ TID *Enoxaparin/Lovenox 40 mg SQ daily (WT < 150 kg, CrCl > 30 mL/min) *Enoxaparin/Lovenox 30 mg SQ daily (WT < 150 kg, CrCl > 10-29 mL/min) *Enoxaparin/Lovenox 30 mg SQ BID (WT < 150 kg, CrCl > 30 mL/min) AND/OR *Sequential Compression Device (SCD) 5 or more Highest Order ONE of the following medications: *Heparin 5000 units SQ TID (Preferred with Epidurals) *Enoxaparin/Lovenox 40 mg SQ daily (WT < 150 kg, CrCl > 30 mL/min) *Enoxaparin/Lovenox 30 mg SQ daily (WT < 150 kg, CrCl > 10-29 mL/min) *Enoxaparin/Lovenox 30 mg SQ BID (WT < 150 kg, CrCl > 30 mL/min) AND *Sequential Compression Device (SCD) Assessment and Plan Problem List: (1) Uterine fibroid ICD Code: D25.9 - Leiomyoma of uterus, unspecified Status: Acute (2) Symptomatic anemia ICD Code: D64.9 - Anemia, unspecified Status: Acute Assessment and Plan 37 y/o female with a history of uterine fibroids presents to the ED with complaints of fatigue. Symptomatic anemia, secondary to uterine fibroids HGB 5.8 EKG reviewed and shows SR -Transfuse 2 units PRBCs -CBC in AM -Cont home iron supplements Uterine fibroids, chronic -Patient is following up on Wednesday with [facility] DVT prophylaxis: SCDs Patient is admitted to the RDU, if hgb is stable in AM patient may be discharged. Discussed Condition With Patient and Lianne Bradshaw October 29, 2017 01:54
--- NOTE | 2017-10-29 01:55 | HHI.DCPOC ---
Discharge Care Plan Diagnosis: (1) Symptomatic anemia (2) Uterine fibroid Goals to Promote Your Health * To prevent worsening of your condition and complications * To maintain your health at the optimal level Directions to Meet Your Goals Take your medications as prescribed Follow your dietary instruction Follow activity as directed Keep your appointments as scheduled Take your immunizations and boosters as scheduled If your symptoms worsen call your PCP, if no PCP go to Urgent Care Center or Emergency Room Smoking is Dangerous to Your Health. Avoid second hand smoke Call the 24-hour hour crisis hotline for domestic abuse at Lianne Alvares October 29, 2017 01:55
[2017-10-29] MEDS ORDERED: SODIUM CHLORIDE 0.9% FLUSH 10 ML FLUSH IV FLUSH SCH (09:00)
[2017-10-29] MEDS ORDERED: DOCUSATE SODIUM 50 MG/SENNA 8.6 MG TAB PO SCH (09:00)
[2017-10-29 09:14] LABS: AUTOMATED NEUTROPHIL # 2.2 TH/MM3 (1.8-7.7); BASOPHIL % 0.8 % (0.0-2.0); EOSINOPHIL # 0.4 TH/MM3 (0-0.4); EOSINOPHIL % 8.3 % (0.0-4.0); HEMATOCRIT 23.1 % (35.0-46.0); HEMOGLOBIN 7.2 GM/DL (11.6-15.3); LYMPHOCYTE # 2.1 TH/MM3 (1.0-4.8); MEAN CELL VOLUME 63.4 FL (80.0-100.0); MEAN CORPUSCULAR HEMOGLOBIN 19.7 PG (27.0-34.0); MEAN PLATELET VOLUME 6.9 FL (7.0-11.0); MONOCYTE # 0.6 TH/MM3 (0-0.9); NEUT % 40.9 % (16.0-70.0); PLATELET COUNT 418 TH/MM3 (150-450); RED BLOOD COUNT 3.65 MIL/MM3 (4.00-5.30); RED CELL DISTRIBUTION WIDTH 27.4 % (11.6-17.2); WHITE BLOOD COUNT 5.3 TH/MM3 (4.0-11.0)
[2017-10-29] MEDS: FERROUS SULFATE 325 MG (65 MG ELEMENTAL IRON) TAB PO SCH ×2 (09:46→16:31)
[2017-10-29 09:48] LABS: ACANTHOCYTES OCC (NORMAL); OVALOCYTES 1+ (NORMAL); TARGET CELLS 1+ (NORMAL)
[2017-10-29 18:57] LABS: HEMATOCRIT 25.5 % (35.0-46.0)
--- NOTE | 2017-10-30 08:29 | EKG ---
Date Performed: 10/29/2017 Time Performed: 00:12:32 PTAGE: 37 years EKG: Sinus rhythm NORMAL ECG PREVIOUS TRACING : 04/24/2017 16.47 DOCTOR: Ari Young Interpretating Date/Time 10/30/2017 08:27:40
== END 2017-10-29 20:26 | disposition home or self-care (01) ==
LOC: NEPE 22:12 → NEDA 10-29 00:28 → NEDH 10-29 06:31 → NEPFCDU 10-29 10:55
PROVIDERS: ADMIT Hospitalist; ATTEND Hospitalist
DX: D50.0 Iron deficiency anemia secondary to blood loss (chronic) (principal); D25.9 Leiomyoma of uterus, unspecified; N92.0 Excessive and frequent menstruation with regular cycle; G43.909 Migraine, unspecified, not intractable, without status migrainosus; F17.210 Nicotine dependence, cigarettes, uncomplicated; F12.90 Cannabis use, unspecified, uncomplicated; R00.0 Tachycardia, unspecified
CPT/HCPCS: 36430; 80048; 85014; 85018; 85025; 85610; 85730; 86077; 86850; 86870; 86900; 86901; 86902; 86920; 86922; 93005; 96360; 96361; 99285; G0378; J7050; P9016

== ENCOUNTER 2018-01-17 17:48 | Inpatient (IN) ==
--- NOTE | 2018-01-17 18:53 | XR ---
EXAM DATE: 01/17/2018 6:47 PM EDT AGE/SEX: 37 years / Female INDICATIONS: . Fever CLINICAL DATA: This is the patient's initial encounter. Patient reports that signs and symptoms have been present for 2 days and indicates a pain score of 0/10. MEDICAL/SURGICAL HISTORY: None. None. COMPARISON: [facility] [place], 11/14/2016. . FINDINGS: PA and lateral views of the chest demonstrate the lungs to be symmetrically aerated without evidence of mass, infiltrate or effusion. The cardiomediastinal contours are unremarkable. Osseous structures are intact. CONCLUSION: No active disease. Electronically signed by: Sg Kahn MD 01/17/2018 6:52 PM EDT
[2018-01-17 23:23] LABS: Baso # (Auto) 0.1 th/mm3 (0.0-0.2); Baso % (Auto) 0.3 % (0.0-2.0); Eos # (Auto) 0.1 th/mm3 (0.0-0.4); Eos % (Auto) 0.9 % (0.0-4.0); Lymph % (Auto) 13.2 % (9.0-44.0); Mean Corpuscular Hemoglobin 15.3 pg (27.0-34.0); Mean Corpuscular Volume 55.9 fL (80.0-100.0); Mono # (Auto) 0.9 th/mm3 (0.0-0.9); Mono % (Auto) 5.8 % (0.0-8.0); Neut # (Auto) 11.9 th/mm3 (1.8-7.7); Neut % (Auto) 79.8 % (16.0-70.0); Platelet Count 659 th/mm3 (150-450); Red Cell Distribution Width 21.5 % (11.6-17.2); White Blood Count 14.9 th/mm3 (4.0-11.0)
--- NOTE | 2018-01-17 23:24 | ED ---
HPI General Chief complaint: Fever Stated complaint: Fatigue/Weakness/Headaches x's 2 days Time Seen by Provider: 01/17/18 22:53 Source: patient Limitations: no limitations History of Present Illness HPI narrative: The patient is a 37 year old female who presents to the [facility] emergency department with a history of reportedly not feeling well at work earlier today. She reports that she began to have a bitemporal headache and generalized weakness. She reports that it felt like she had weights on her legs. She reports that she took Tylenol at 11 AM for generalized body aches. She continued to feel poorly, therefore she came to the emergency department for evaluation and treatment. She reports that she has had weakness in the past related to symptomatic anemia. She reports that she has a history of anemia related to uterine fibroids. She is followed by the health department for this and is in the process of being worked up for hysterectomy. She reports that she had a blood transfusion related to her hemoglobin being low 2 months ago. She has not had her hemoglobin checked since then. She reports that she is on an iron supplement, however she ran out of the prescription form for 2 days and then purchased an [id number] iron supplement which she has been taking and did take today. She denies having any chest pain or chest pressure. She reports having some shortness of breath with exertion. She denies having any cough, congestion, sore throat, nasal discharge, or rashes. She denies having any neck pain or stiffness. Patient reports having a diminished appetite today. She denies having any abdominal pain, nausea, vomiting, or diarrhea. She denies having any dysuria, urinary urgency. On review of systems otherwise, the patient denies having any neurologic symptoms. The patient's last menstrual cycle started 6 days ago. She reports that the bleeding stopped today. Related Data Home Medications Medication Instructions Recorded Confirmed ferrous sulfate 27 mg PO DAILY 01/17/18 01/18/18 Allergies Allergy/AdvReac Type Severity Reaction Status Date / Time tramadol Allergy Severe Nausea/Vomi Verified 01/17/18 18:01 ting Review of Systems ROS Unobtainable All other systems reviewed negative except as stated in HPI PMFSH History History Provided By: Patient Social History Social History Substance History: Active Abuse Second Hand Smoke Exposure: Yes Smoking Status: Current every day smoker Tobacco Type: Cigarettes Cigarettes Per Day: 4 How Often Do You Have a Drink Containing Alcohol: Monthly or less Recent Travel in [facility] within the Last 8 Weeks: No Recent Out of Country Travel within the Last 8 Weeks: No Exam Const General: cooperative, no acute distress and well developed Nutritional Appearance: well nourished Orientation: alert, awake and oriented x3 [facility] Head: normocephalic and atraumatic Nose: no nasal discharge and no epistaxis Mouth: moist mucous membranes Throat: posterior oropharynx normal Eyes Sclera: normal sclerae Pupils: PERRL Neck Neck: no meningeal signs, trachea midline and no JVD Resp Effort & Inspection: no use of accessory muscles Auscultation: clear to auscultation bilaterally Cardio Rate: tachycardic (Sinus tachycardia in the low 100s, no pulse deficits to the extremities on simultaneous auscultation and palpation of her radial artery) Rhythm: regular rhythm Heart Sounds: no gallops, no murmurs and no rubs GI Inspection: non-distended Palpation: soft, no hepatosplenomegaly and nontender Auscultation: normal bowel sounds Back/Spine/Pelvis Back: no CVA tenderness Cervical Spine: No cervical spinal tenderness Thoracic/Lumbar Spine: No thoracic spinal tenderness and No lumbar spinal tenderness Skin General: dry skin (warm) Neuro General: alert, awake and oriented x3 Cranial Nerves: CN's II-XI intact bilaterally Speech: speech normal Motor: strength 5/5 throughout and no movement abnormalities noted Sensory Exam: no sensory deficits noted Extrem General: normal to inspection (No calf tenderness on palpation.), no clubbing, no cyanosis and no edema Psych Mood: congruent mood Affect: normal affect Judgment: judgment good Course Consultations Consultation #1: The patient's case including history, pertinent physical examination findings, and laboratory studies were discussed with Dr. Simental. It was agreed that the patient would be admitted to the hospitalist service. Initial Documented Vital Signs Temperature 101.2 F H 01/17/18 18:01 Pulse Rate 111 H 01/17/18 18:01 Respiratory Rate 20 01/17/18 18:01 Blood Pressure 147/73 H 01/17/18 18:01 Pulse Oximetry 100 01/17/18 18:01 Last Documented Vital Signs Temperature 97.2 F L 01/18/18 16:42 Pulse Rate 81 01/18/18 16:42 Respiratory Rate 18 01/18/18 16:42 Blood Pressure 116/66 01/18/18 16:42 Pulse Oximetry 100 01/18/18 16:15 Medical Decision Making MDM Narrative Medical decision making narrative: During the course of the patient's emergency department visit, the patient's history, examination, and differential diagnosis were reviewed with the patient. The patient was placed on a monitoring specialist with oximetry and frequent blood pressure monitoring. The patient had IV access obtained and blood work sent for analysis. Diagnostic evaluation was started regarding this who presents with low-grade fever, generalized weakness. The patient was initially provided Tylenol 650 p.o. 1, normal saline 1 L IV fluid bolus. The patient's laboratory studies were remarkable for an initial white count of 3 hemoglobin of 3.2. The patient was typed and crossmatched for 4 units of packed red blood cells and 2 units of packed red blood cells will be administered. The patient's white count was 14.9, platelets 659, neutrophil percent 79.8, PT 11.4, INR 1.1, chemistry is remarkable for sodium of 131, calcium 8.4, BUN 3, AST 14, albumin 3.2. Influenza testing was negative. A chest x-ray showed no acute abnormality. The patient's results were discussed with the patient, including the plan of care. I explained that further testing and/ or monitoring is indicated based on the patient's history, examination, and/ or laboratory findings. Therefore, I recommended admission for additional evaluation. The patient expressed understanding and was agreeable with this plan. The patient was admitted to the hospital in stable condition and sent to a bed under the care of [facility] service. Differential Diagnosis Differential Diagnosis: Pyelonephritis, versus cystitis, versus pneumonia, versus Medical Records Medical records reviewed: Yes I reviewed the patient's medical records. POC Test Results POC Urine Results: Negative Lab Data Lab results reviewed: Yes I reviewed the patient's lab results. Result diagrams: 01/18/18 11:15 01/17/18 23:03 Lab Results 01/17/18 01/17/18 01/17/18 Range/Units 23:03 23:03 23:03 WBC 14.9 H (4.0-11.0) th/mm3 RBC 2.10 L (4.00-5.30) mil/mm3 Hgb 3.2 L* (11.6-15.3) gm/dL Hct 11.7 L* (35.0-46.0) % MCV 55.9 L (80.0-100.0) fL MCH 15.3 L (27.0-34.0) pg MCHC 27.4 L (32.0-36.0) % RDW 21.5 H (11.6-17.2) % Plt Count 659 H (150-450) th/mm3 MPV 7.0 (7.0-11.0) fL Prelim Diff (Auto) Slide review pending Neut % (Auto) 79.8 H (16.0-70.0) % Lymph % (Auto) 13.2 (9.0-44.0) % [place] % (Auto) 5.8 (0.0-8.0) % Eos % (Auto) 0.9 (0.0-4.0) % Baso % (Auto) 0.3 (0.0-2.0) % Neut # (Auto) 11.9 H (1.8-7.7) th/mm3 Lymph # (Auto) 2.0 (1.0-4.8) th/mm3 [place] # (Auto) 0.9 (0.0-0.9) th/mm3 Eos # (Auto) 0.1 (0.0-0.4) th/mm3 Baso # (Auto) 0.1 (0.0-0.2) th/mm3 WBC Differential . Differential Comment . Platelet Estimate High H (Normal) Platelet Morphology Enlarged H (Normal) PT (9.8-11.6) sec INR Ratio Sodium 131 L (136-145) meq/L Potassium 3.6 (3.5-5.1) meq/L Chloride 100 (98-107) meq/L Carbon Dioxide 23.6 (21.0-32.0) meq/L Anion Gap 7 (5-15) meq/L BUN 3 L (7-18) mg/dL Creatinine 0.60 (0.50-1.00) mg/dL Estimated GFR Greater than 89 (>89) mL/min Random Glucose 86 (74-106) mg/dL Lactic Acid 1.4 (0.4-2.0) mmol/L Calcium 8.4 L (8.5-10.1) mg/dL Total Bilirubin 0.6 (0.2-1.0) mg/dL AST 14 L (15-37) U/L ALT 11 (10-53) U/L Alkaline Phosphatase 70 (45-117) U/L Total Protein 7.8 (6.4-8.2) g/dL Albumin 3.2 L (3.4-5.0) g/dL Urine Color (Yellw/Straw) Urine Clarity (Clear) Urine pH (5.0-8.5) Ur Specific [place] (1.002-1.035) Urine Protein (Neg-Trace) mg/dL Urine Glucose (UA) (Negative) mg/dL Urine Ketones (Negative) mg/dL Urine Occult Blood (Negative) Urine Nitrate (Negative) Urine Bilirubin (Negative) Urine Urobilinogen (Less than 2) mg/dL Ur Leukocyte Esterase (Negative) Urine RBC (0-3) /hpf Urine WBC (0-5) /hpf Ur Squamous Epith Cells (0-5) /hpf Urine Bacteria (None) /hpf Urine Mucus (Occasional) /lpf Micro UA Comment Urine Culture Comments Blood Type Antibody Screen MTS Gel Crossmatch Bld Prod Order Comment 01/17/18 01/17/18 01/17/18 Range/Units 23:03 23:30 23:59 WBC (4.0-11.0) th/mm3 RBC (4.00-5.30) mil/mm3 Hgb (11.6-15.3) gm/dL Hct (35.0-46.0) % MCV (80.0-100.0) fL MCH (27.0-34.0) pg MCHC (32.0-36.0) % RDW (11.6-17.2) % Plt Count (150-450) th/mm3 MPV (7.0-11.0) fL Prelim Diff (Auto) Neut % (Auto) (16.0-70.0) % Lymph % (Auto) (9.0-44.0) % [place] % (Auto) (0.0-8.0) % Eos % (Auto) (0.0-4.0) % Baso % (Auto) (0.0-2.0) % Neut # (Auto) (1.8-7.7) th/mm3 Lymph # (Auto) (1.0-4.8) th/mm3 [place] # (Auto) (0.0-0.9) th/mm3 Eos # (Auto) (0.0-0.4) th/mm3 Baso # (Auto) (0.0-0.2) th/mm3 WBC Differential Differential Comment Platelet Estimate (Normal) Platelet Morphology (Normal) PT (9.8-11.6) sec INR Ratio Sodium (136-145) meq/L Potassium (3.5-5.1) meq/L Chloride (98-107) meq/L Carbon Dioxide (21.0-32.0) meq/L Anion Gap (5-15) meq/L BUN (7-18) mg/dL Creatinine (0.50-1.00) mg/dL Estimated GFR (>89) mL/min Random Glucose (74-106) mg/dL Lactic Acid (0.4-2.0) mmol/L Calcium (8.5-10.1) mg/dL Total Bilirubin (0.2-1.0) mg/dL AST (15-37) U/L ALT (10-53) U/L Alkaline Phosphatase (45-117) U/L Total Protein (6.4-8.2) g/dL Albumin (3.4-5.0) g/dL Urine Color Straw (Yellw/Straw) Urine Clarity Clear (Clear) Urine pH 7.0 (5.0-8.5) Ur Specific [place] 1.005 (1.002-1.035) Urine Protein Negative (Neg-Trace) mg/dL Urine Glucose (UA) Negative (Negative) mg/dL Urine Ketones 20 (Negative) mg/dL Urine Occult Blood Moderate H (Negative) Urine Nitrate Negative (Negative) Urine Bilirubin Negative (Negative) Urine Urobilinogen Less than 2 (Less than 2) mg/dL Ur Leukocyte Esterase Small H (Negative) Urine RBC 1 (0-3) /hpf Urine WBC 3 (0-5) /hpf Ur Squamous Epith Cells 2 (0-5) /hpf Urine Bacteria Rare H (None) /hpf Urine Mucus Few H (Occasional) /lpf Micro UA Comment Culture not ind Urine Culture Comments Culture not ind Blood Type A Positive Antibody Screen Positive H MTS Gel Crossmatch See Detail See Detail Bld Prod Order Comment Cancelled 01/18/18 01/18/18 01/18/18 Range/Units 01:12 11:15 11:15 WBC (4.0-11.0) th/mm3 RBC (4.00-5.30) mil/mm3 Hgb Cancelled 6.2 L* D (11.6-15.3) gm/dL Hct (35.0-46.0) % MCV (80.0-100.0) fL MCH (27.0-34.0) pg MCHC (32.0-36.0) % RDW (11.6-17.2) % Plt Count (150-450) th/mm3 MPV (7.0-11.0) fL Prelim Diff (Auto) Neut % (Auto) (16.0-70.0) % Lymph % (Auto) (9.0-44.0) % [place] % (Auto) (0.0-8.0) % Eos % (Auto) (0.0-4.0) % Baso % (Auto) (0.0-2.0) % Neut # (Auto) (1.8-7.7) th/mm3 Lymph # (Auto) (1.0-4.8) th/mm3 [place] # (Auto) (0.0-0.9) th/mm3 Eos # (Auto) (0.0-0.4) th/mm3 Baso # (Auto) (0.0-0.2) th/mm3 WBC Differential Differential Comment Platelet Estimate (Normal) Platelet Morphology (Normal) PT 11.4 (9.8-11.6) sec INR 1.1 Ratio Sodium (136-145) meq/L Potassium (3.5-5.1) meq/L Chloride (98-107) meq/L Carbon Dioxide (21.0-32.0) meq/L Anion Gap (5-15) meq/L BUN (7-18) mg/dL Creatinine (0.50-1.00) mg/dL Estimated GFR (>89) mL/min Random Glucose (74-106) mg/dL Lactic Acid (0.4-2.0) mmol/L Calcium (8.5-10.1) mg/dL Total Bilirubin (0.2-1.0) mg/dL AST (15-37) U/L ALT (10-53) U/L Alkaline Phosphatase (45-117) U/L Total Protein (6.4-8.2) g/dL Albumin (3.4-5.0) g/dL Urine Color (Yellw/Straw) Urine Clarity (Clear) Urine pH (5.0-8.5) Ur Specific [place] (1.002-1.035) Urine Protein (Neg-Trace) mg/dL Urine Glucose (UA) (Negative) mg/dL Urine Ketones (Negative) mg/dL Urine Occult Blood (Negative) Urine Nitrate (Negative) Urine Bilirubin (Negative) Urine Urobilinogen (Less than 2) mg/dL Ur Leukocyte Esterase (Negative) Urine RBC (0-3) /hpf Urine WBC (0-5) /hpf Ur Squamous Epith Cells (0-5) /hpf Urine Bacteria (None) /hpf Urine Mucus (Occasional) /lpf Micro UA Comment Urine Culture Comments Blood Type Antibody Screen MTS Gel Crossmatch Bld Prod Order Comment Imaging Data Radiologist's impression: Chest X-Ray 01/17/18 18:03 CONCLUSION: No active disease. Discharge Plan Discharge Disposition Patient Disposition: 30 Still Patient Discharge Details Diagnosis: Symptomatic anemia Physicians Team ED Provider: Joya El Primary Care Provider: Primary Care Judith Olmstead Attending Provider: Venu Lopez Other Providers: Nat Lam Discharge Interventions Interventions: ED Discharge Assessment Last Done: 01/18/18 02:14 Status ED Status: Left Department Discharge Information Discharge Date/Time: 01/18/18 02:14
[2018-01-17 23:26] LABS: Mean Corpuscular HGB Conc 27.4 % (32.0-36.0)
[2018-01-17] MEDS ORDERED: Acetaminophen 325 MG Tablet PO ONE (23:27)
[2018-01-17] MEDS ORDERED: Sod Chloride 0.9% Inj 1,000 ML IV.SIG ONE (23:27)
[2018-01-17 23:31] LABS: Hemoglobin 3.2 gm/dL (11.6-15.3)
[2018-01-17 23:32] LABS: Hematocrit 11.7 % (35.0-46.0)
[2018-01-17 23:36] LABS: Bacteria,Urine Rare /hpf; Bilirubin,Urine Negative (Negative); Clarity,Urine Clear (Clear); Color,Urine Straw (Yellw/Straw); Glucose,Urine (UA) Negative (Negative); Leukocyte Esterase,Urine Small (Negative); Mucus,Urine Few /lpf (Occasional); Nitrite,Urine Negative (Negative); Specific Gravity,Urine 1.005 (1.002-1.035); Squamous Epithelial Cell,Urine 2 /hpf (0-5)
[2018-01-17 23:45] LABS: Albumin 3.2 g/dL (3.4-5.0); Anion Gap 7 meq/L (5-15); Aspartate Aminotransferase 14 U/L (15-37); Blood Urea Nitrogen 3 mg/dL (7-18); Calcium 8.4 mg/dL (8.5-10.1); Carbon Dioxide 23.6 meq/L (21.0-32.0); Chloride 100 meq/L (98-107); Glomerular Filtration Rate Greater Than 89 mL/min (>89); Glucose,Random 86 mg/dL (74-106); Potassium 3.6 meq/L (3.5-5.1); Sodium 131 meq/L (136-145)
[2018-01-17] MEDS ORDERED: Sodium Chlor 0.9% Inj 250 ML IV.SIG SCH (23:45)
[2018-01-17 23:46] LABS: Alanine Aminotransferase 11 U/L (10-53)
[2018-01-17 23:49] LABS: Alkaline Phosphatase 70 U/L (45-117); Total Protein 7.8 g/dL (6.4-8.2)
[2018-01-18] MEDS ORDERED: Bisacodyl 10 MG Supp RECTAL PRN (01:06)
[2018-01-18 01:51] LABS: INR 1.1 Ratio; Prothrombin Time 11.4 sec (9.8-11.6)
--- NOTE | 2018-01-18 03:49 | P.HPIM ---
History of Present Illness Primary Care Physician: No Primary Care Physician History of Present Illness: 37-year-old female with a history of anemia, fibroids, menorrhagia who presents with a several day history of progressively worsening fatigue, lightheadedness, felt like she is going to pass out at work today. Found to have hemoglobin of 3.2 on presentation. Patient says she recently finished her menses yesterday and the bleeding has stopped; this lasted about a week, and was very heavy bleeding.. She denies any fevers or chills at home, however appears to have had a fever here. Denies any dysuria, hematuria. Inpatient Certification: I certify that the inpatient services were ordered in accordance with Medicare regulations governing the order. This includes certification that hospital inpatient services are reasonable and necessary and in the case of services not specified as inpatient-only under 42 CFR 419.22(n), that they are appropriately provided as inpatient services in accordance to with the 2-midnight benchmark under 43 CFR 412.3(e) Estimated Total Length of Stay (Days): 2 Plans for Post Hospital Care: Home Review of Systems All other systems reviewed negative except as stated in HPI [facility] - History History Provided By: Patient - Medical History Medical History: Medical History (Last Updated 01/17/18 @ 23:16 by Ghazala Mario) Anemia Uterine fibroid - Surgical History Surgical History: Surgical History (Last Updated 01/17/18 @ 23:16 by Ghazala Mario) H/O tubal ligation - Tobacco History Second Hand Smoke Exposure: Yes Tobacco Use In Past 30 Days: Yes Smoking Status: Current every day smoker Tobacco Type: Cigarettes Cigarettes Per Day: 4 - Alcohol History How Often Do You Have a Drink Containing Alcohol: Monthly or less - Substance Use History Substance History: Active Abuse - Substance Use Type Marijuana Status: Active Route Used: Inhalation Reason for Use: Calm Down - Travel History Recent Travel in the [place] Within the Last 8 Weeks: No Recent Travel Out of the Country Within the Last 8 Weeks: No - Immunization History Tetanus Immunization: Unsure Hx Influenza Vaccine This Season: No Medications and Allergies Active Medications: Active Medications Al Hydroxide/Mg Hydroxide (Milk Of [place] Liq) 30 ml PO Q12H PRN PRN Reason: Mild Constipation Bisacodyl (Dulcolax Supp) 10 mg RECTAL DAILY PRN PRN Reason: SEVERE CONSITIPATION Sodium Chloride (Ns Inj) 250 mls @ 15 mls/hr IV.SIG ONCE COOKIE Stop: 01/18/18 16:24 Last Admin: 01/18/18 01:36 Dose: 15 mls/hr Sodium Chloride (Ns Inj) 1,000 mls @ 100 mls/hr IV.CONT .Q10H COOKIE Lactulose (Lactulose Liq) 30 ml PO DAILY PRN PRN Reason: SEVERE CONSITIPATION Sennosides (Senokot) 17.2 mg PO Q12H PRN PRN Reason: Moderate Constipation Sodium Chloride (Ns Flush) 2 ml IV.FLUSH BID COOKIE Sodium Chloride (Ns Flush) 2 ml IV.FLUSH PRN PRN PRN Reason: FLUSH AFTER USING IV ACCESS Temazepam (Restoril) 15 mg PO HS PRN PRN Reason: INSOMNIA Allergies Allergy/AdvReac Type Severity Reaction Status Date / Time tramadol Allergy Severe Nausea/Vomi Verified 01/17/18 18:01 ting Home Medications Medication Instructions Recorded Confirmed Type ferrous sulfate 27 mg PO DAILY 01/17/18 History Exam Vital signs: Vital Signs 01/17/18 18:01 01/17/18 23:15 01/18/18 01:00 Temperature 101.2 F H 100.4 F H 98.9 F Pulse Rate 111 H 103 H 102 H Respiratory Rate 20 20 18 Blood Pressure 147/73 H 138/67 131/63 Pulse Oximetry 100 99 100 01/18/18 01:33 01/18/18 01:57 01/18/18 02:21 Temperature 98.4 F 98.4 F 99.3 F Pulse Rate 90 99 H 94 H Respiratory Rate 18 18 18 Blood Pressure 130/88 130/58 L 108/60 Pulse Oximetry 100 98 01/18/18 02:52 01/18/18 03:13 Temperature 99.3 F 99.2 F Pulse Rate 92 H 104 H Respiratory Rate 18 18 Blood Pressure 115/58 L 109/53 L Pulse Oximetry 98 98 Intake & Output 01/17/18 01/17/18 01/18/18 06:59 18:59 06:59 Intake Total 0 / 0 Balance 0 / 0 Weight 65.771 kg 63.4 kg Intake: Intake (Blood Product) Amt 0 / 0 Rbc As-3 Leukoreduced Unit 0 / 0 [id number] Rbc As-3 Leukoreduced Unit 0 / 0 [id number] Other: Date of Last Bowel Movement 01/17/18 Weight On Admission 63.4 kg Narrative: GENERAL: Patient lying in bed. Appears fatigued. Oriented 3. SKIN: Warm and dry. HEAD: Atraumatic. Normocephalic. EYES: Pupils equal and round. No scleral icterus. No injection or drainage. ENT: No nasal bleeding or discharge. Mucous membranes pink and moist. NECK: Trachea midline. No JVD. CARDIOVASCULAR: Regular rate and rhythm. RESPIRATORY: No accessory muscle use. Clear to auscultation. Breath sounds equal bilaterally. GASTROINTESTINAL: Abdomen soft, non-tender, nondistended. Hepatic and splenic margins not palpable. MUSCULOSKELETAL: Extremities without clubbing, cyanosis, or edema. No obvious deformities. NEUROLOGICAL: Awake and alert. No obvious cranial nerve deficits. Motor grossly within normal limits. Five out of 5 muscle strength in the arms and legs. Normal speech. PSYCHIATRIC: Appropriate mood and affect; insight and judgment normal. Results - Labs CBC & Chem 7: 01/17/18 23:03 01/17/18 23:03 Labs: Short CBC 01/17/18 Range/Units 23:03 WBC 14.9 H (4.0-11.0) th/mm3 Hgb 3.2 L* (11.6-15.3) gm/dL Hct 11.7 L* (35.0-46.0) % Plt Count 659 H (150-450) th/mm3 BMP 01/17/18 23:03 Sodium 131 L Potassium 3.6 Chloride 100 Carbon Dioxide 23.6 BUN 3 L Creatinine 0.60 Calcium 8.4 L Liver Function 01/17/18 Range/Units 23:03 Total Bilirubin 0.6 (0.2-1.0) mg/dL AST 14 L (15-37) U/L ALT 11 (10-53) U/L Alkaline Phosphatase 70 (45-117) U/L Albumin 3.2 L (3.4-5.0) g/dL Urine 01/17/18 Range/Units 23:03 Urine Color Straw (Yellw/Straw) Urine Clarity Clear (Clear) Urine pH 7.0 (5.0-8.5) Ur Specific [place] 1.005 (1.002-1.035) Urine Protein Negative (Neg-Trace) mg/dL Urine Glucose (UA) Negative (Negative) mg/dL - Imaging Impressions Chest X-Ray 01/17/18 18:03 CONCLUSION: No active disease. Caprini VTE Risk Assessment Caprini VTE Risk Assessment: No/Low Risk (score <= 1) Caprini Risk Assessment Model: Point Value = 1 Point Value = 2 Point Value = 3 Point Value = 5 Age 41-60 Minor surgery BMI > 25 kg/m2 Swollen legs Varicose veins or History of unexplained or recurrent spontaneous Oral contraceptives or hormone replacement Sepsis (< 1 month) Serious lung disease, including pneumonia (< 1 month) Abnormal pulmonary function Acute myocardial infarction Congestive heart failure (< 1 month) History of inflammatory bowel disease Medical patient at bed rest Age 61-74 Arthroscopic surgery Major open surgery (> 45 min) Laparoscopic surgery (> 45 min) Malignancy Confined to bed (> 72 hours) Immobilizing plaster cast Central venous access Age >= 75 History of VTE Family history of VTE Factor V Leiden Prothrombin [id number] Lupus anticoagulant Anticardiolipin antibodies Elevated serum homocysteine Heparin-induced thrombocytopenia Other congenital or acquired thrombophilia Stroke (< 1 month) Elective arthroplasty Hip, pelvis, or leg fracture Acute spinal cord injury (< 1 month) Prophylaxis Regimen: Total Risk Factor Score Risk Level Prophylaxis Regimen 0-1 Low Early ambulation 2 Moderate Order ONE of the following: *Sequential Compression Device (SCD) *Heparin 5000 units SQ BID 3-4 Higher Order ONE of the following medications: *Heparin 5000 units SQ TID *Enoxaparin/Lovenox 40 mg SQ daily (WT < 150 kg, CrCl > 30 mL/min) *Enoxaparin/Lovenox 30 mg SQ daily (WT < 150 kg, CrCl > 10-29 mL/min) *Enoxaparin/Lovenox 30 mg SQ BID (WT < 150 kg, CrCl > 30 mL/min) AND/OR *Sequential Compression Device (SCD) 5 or more Highest Order ONE of the following medications: *Heparin 5000 units SQ TID (Preferred with Epidurals) *Enoxaparin/Lovenox 40 mg SQ daily (WT < 150 kg, CrCl > 30 mL/min) *Enoxaparin/Lovenox 30 mg SQ daily (WT < 150 kg, CrCl > 10-29 mL/min) *Enoxaparin/Lovenox 30 mg SQ BID (WT < 150 kg, CrCl > 30 mL/min) AND *Sequential Compression Device (SCD) Assessment and Plan - Plan //Acute on chronic blood loss anemia //Fibroids. = Secondary to menorrhagia from chronic fibroids. = Menses bleeding has stopped at this time Transfuse 4 units of PRBCs. Continue to follow hemoglobin. =, Expect that once hemoglobin is stable, now that bleeding has stopped, she will need a follow-up with gynecology as outpatient for planned hysterectomy. //Leukocytosis and fever. Patient has no source of infection, negative chest x- ray, urinalysis, no signs or symptoms of infection we will continue to monitor closely. //Hypernatremia. Sodium 131. Hypovolemic. SPECT improved with transfusion. Continue to monitor. Discussed Condition With: Patient, nurse, ED physician. H&P: Quality - VTE Deep Vein Thrombosis/Pulmonary Embolism Present on Admission: No
[2018-01-18] MEDS: Sod Chloride 0.9% Inj 1,000 ML IV.CONT SCH ×3 (05:36→22:07)
[2018-01-18] MEDS: Acetaminophen 500 MG Tablet PO PRN ×2 (12:18→22:07)
[2018-01-18] MEDS: Butalbital/APAP/Caff 50/325/40 MG Tablet PO PRN ×2 (15:02→23:29)
--- NOTE | 2018-01-18 17:10 | P.CONOB ---
History of Present Illness Primary Care Physician: No Primary Care Physician History of Present Illness: 37-year-old female with a history of anemia, fibroids, menorrhagia who presented to ED with a several day history of progressively worsening fatigue, lightheadedness. Found to have hemoglobin of 3.2 on presentation. Denies any dysuria, hematuria. Her period started Wednesday and ended Wednesday. She is currently not having any bleeding. She has heavy periods with clots and sever cramping once a month. She started having her cycles at age 16. She was diagnosed with fibroids and recommended to have a hysterectomy, but has been able to follow up due to insurance issues. She has been admitted multiple times for anemia. In the past she tried control pills and Depo shot , which had little impact on her bleedings. She had 3 previous pregnancies which went to term and delivered by . She had tubal ligation. She is sexually active and uses condoms. No history of STIs. She is currently smoking 3-4 cigarettes per day. Para: 3 : 3 - Inpatient Certification I certify that the inpatient services were ordered in accordance with Medicare regulations governing the order. This includes certification that hospital inpatient services are reasonable and necessary and in the case of services not specified as inpatient-only under 42 CFR 419.22(n), that they are appropriately provided as inpatient services in accordance to with the 2-midnight benchmark under 43 CFR 412.3(e) Estimated Total Length of Stay (Days): 2 Plans for Post Hospital Care: Home Review of Systems All other systems reviewed negative except as stated in HPI [facility] - History History Provided By: Patient - Medical History Medical History: Medical History (Last Reviewed 01/18/18 @ 06:13 by Audrey Abbott RN) Anemia Uterine fibroid - Surgical History Surgical History: Surgical History (Last Reviewed 01/18/18 @ 06:13 by Audrey Abbott RN) H/O tubal ligation - Tobacco History Second Hand Smoke Exposure: Yes Tobacco Use In Past 30 Days: Yes Smoking Status: Current every day smoker Tobacco Type: Cigarettes Cigarettes Per Day: 4 - Alcohol History How Often Do You Have a Drink Containing Alcohol: Monthly or less - Substance Use History Substance History: Active Abuse - Substance Use Type Marijuana Status: Active Route Used: Inhalation Reason for Use: Calm Down - Travel History Recent Travel in the [facility] Within the Last 8 Weeks: No Recent Travel Out of the Country Within the Last 8 Weeks: No - Immunization History Tetanus Immunization: Unsure Hx Influenza Vaccine This Season: No Medications and Allergies Allergies Allergy/AdvReac Type Severity Reaction Status Date / Time tramadol Allergy Severe Nausea/Vomi Verified 01/17/18 18:01 ting Home Medications Medication Instructions Recorded Confirmed Type ferrous sulfate 27 mg PO DAILY 01/17/18 01/18/18 History Active Medications: Active Medications Acetaminophen (Tylenol) 500 mg PO Q6H PRN PRN Reason: FEVER Last Admin: 01/18/18 12:18 Dose: 500 mg Acetaminophen/Butalbital/Caffeine (Fioricet 50-325-40) 1 tab PO Q8H PRN PRN Reason: HEADACHE Last Admin: 01/18/18 15:02 Dose: 1 tab Al Hydroxide/Mg Hydroxide (Milk Of Magnesia Liq) 30 ml PO Q12H PRN PRN Reason: Mild Constipation Bisacodyl (Dulcolax Supp) 10 mg RECTAL DAILY PRN PRN Reason: SEVERE CONSITIPATION Sodium Chloride (Ns Inj) 1,000 mls @ 100 mls/hr IV.CONT .Q10H [facility] Last Admin: 01/18/18 13:27 Dose: 100 mls/hr Lactulose (Lactulose Liq) 30 ml PO DAILY PRN PRN Reason: SEVERE CONSITIPATION Sennosides (Senokot) 17.2 mg PO Q12H PRN PRN Reason: Moderate Constipation Sodium Chloride (Ns Flush) 2 ml IV.FLUSH BID [facility] Last Admin: 01/18/18 09:15 Dose: Not Given Sodium Chloride (Ns Flush) 2 ml IV.FLUSH PRN PRN PRN Reason: FLUSH AFTER USING IV ACCESS Temazepam (Restoril) 15 mg PO HS PRN PRN Reason: INSOMNIA Exam Vital signs: Vital Signs 01/17/18 18:01 01/17/18 23:15 01/18/18 01:00 Temperature 101.2 F H 100.4 F H 98.9 F Pulse Rate 111 H 103 H 102 H Respiratory Rate 20 20 18 Blood Pressure 147/73 H 138/67 131/63 Pulse Oximetry 100 99 100 01/18/18 01:33 01/18/18 01:57 01/18/18 02:21 Temperature 98.4 F 98.4 F 99.3 F Pulse Rate 90 99 H 94 H Respiratory Rate 18 18 18 Blood Pressure 130/88 130/58 L 108/60 Pulse Oximetry 100 98 01/18/18 02:52 01/18/18 03:13 01/18/18 04:00 Temperature 99.3 F 99.2 F 97.3 F L Pulse Rate 92 H 104 H 84 Respiratory Rate 18 18 18 Blood Pressure 115/58 L 109/53 L 110/55 L Pulse Oximetry 98 98 98 01/18/18 04:45 01/18/18 08:00 01/18/18 11:12 Temperature 97.3 F L 99.9 F H Pulse Rate 77 98 H 102 H Respiratory Rate 16 18 Blood Pressure 107/57 L 123/61 Pulse Oximetry 99 100 01/18/18 12:00 01/18/18 13:11 01/18/18 13:36 Temperature 101.1 F H 102.0 F H Pulse Rate 106 H 98 H Respiratory Rate 16 20 Blood Pressure 121/56 L 120/67 123/64 Pulse Oximetry 99 97 01/18/18 13:39 01/18/18 16:00 01/18/18 16:15 Temperature 100.1 F H 98.6 F 98.8 F Pulse Rate 97 H 98 H 84 Respiratory Rate 20 22 20 Blood Pressure 115/65 110/58 L Pulse Oximetry 98 100 100 Intake & Output 01/17/18 01/18/18 01/18/18 18:59 06:59 18:59 Intake Total 1800 / 1800 400 / 400 Balance 1800 / 1800 400 / 400 Weight 65.771 kg 63.4 kg Intake: IV 1000 / 1000 Intake (Blood Product) Amt 0 / 0 400 / 400 Rbc As-3 Leukoreduced Unit 0 / 0 [id number] Rbc As-3 Leukoreduced Unit 0 / 0 [id number] Rbc As-3 Leukoreduced Unit 400 / 400 [id number] Rbc As-3 Leukoreduced Unit 0 / 0 [id number] Mass Transfusion Protocol 800 / 800 Other: Date of Last Bowel Movement 01/17/18 Weight On Admission 63.4 kg Narrative: GENERAL: SKIN: Warm and dry. HEAD: Normocephalic. EYES: No scleral icterus. No injection or drainage. NECK: Supple, trachea midline. No JVD or lymphadenopathy. CARDIOVASCULAR: Regular rate and rhythm without murmurs, gallops, or rubs. RESPIRATORY: Breath sounds equal bilaterally. No accessory muscle use. GASTROINTESTINAL: Abdomen soft, non-tender, nondistended. MUSCULOSKELETAL: No cyanosis, or edema. BACK: Nontender without obvious deformity. No CVA tenderness. Results - Labs CBC & Chem 7: 01/18/18 11:15 01/17/18 23:03 Labs: Laboratory Results - last 24 hr 01/17/18 01/17/18 01/17/18 23:03 23:03 23:03 WBC 14.9 H RBC 2.10 L Hgb 3.2 L* Hct 11.7 L* MCV 55.9 L MCH 15.3 L MCHC 27.4 L RDW 21.5 H Plt Count 659 H MPV 7.0 Prelim Diff (Auto) Slide review pending Neut % (Auto) 79.8 H Lymph % (Auto) 13.2 [place] % (Auto) 5.8 Eos % (Auto) 0.9 Baso % (Auto) 0.3 Neut # (Auto) 11.9 H Lymph # (Auto) 2.0 [place] # (Auto) 0.9 Eos # (Auto) 0.1 Baso # (Auto) 0.1 WBC Differential . Differential Comment . Platelet Estimate High H Platelet Morphology Enlarged H PT INR Sodium 131 L Potassium 3.6 Chloride 100 Carbon Dioxide 23.6 Anion Gap 7 BUN 3 L Creatinine 0.60 Estimated GFR Greater than 89 Random Glucose 86 Lactic Acid 1.4 Calcium 8.4 L Total Bilirubin 0.6 AST 14 L ALT 11 Alkaline Phosphatase 70 Total Protein 7.8 Albumin 3.2 L Urine Color Urine Clarity Urine pH Ur Specific [place] Urine Protein Urine Glucose (UA) Urine Ketones Urine Occult Blood Urine Nitrate Urine Bilirubin Urine Urobilinogen Ur Leukocyte Esterase Urine RBC Urine WBC Ur Squamous Epith Cells Urine Bacteria Urine Mucus Micro UA Comment Urine Culture Comments Blood Type Antibody Screen MTS Gel Crossmatch Bld Prod Order Comment 01/17/18 01/17/18 01/17/18 23:03 23:30 23:59 WBC RBC Hgb Hct MCV MCH MCHC RDW Plt Count MPV Prelim Diff (Auto) Neut % (Auto) Lymph % (Auto) [place] % (Auto) Eos % (Auto) Baso % (Auto) Neut # (Auto) Lymph # (Auto) [place] # (Auto) Eos # (Auto) Baso # (Auto) WBC Differential Differential Comment Platelet Estimate Platelet Morphology PT INR Sodium Potassium Chloride Carbon Dioxide Anion Gap BUN Creatinine Estimated GFR Random Glucose Lactic Acid Calcium Total Bilirubin AST ALT Alkaline Phosphatase Total Protein Albumin Urine Color Straw Urine Clarity Clear Urine pH 7.0 Ur Specific [place] 1.005 Urine Protein Negative Urine Glucose (UA) Negative Urine Ketones 20 Urine Occult Blood Moderate H Urine Nitrate Negative Urine Bilirubin Negative Urine Urobilinogen Less than 2 Ur Leukocyte Esterase Small H Urine RBC 1 Urine WBC 3 Ur Squamous Epith Cells 2 Urine Bacteria Rare H Urine Mucus Few H Micro UA Comment Culture not ind Urine Culture Comments Culture not ind Blood Type A Positive Antibody Screen Positive H MTS Gel Crossmatch See Detail See Detail Bld Prod Order Comment Cancelled 01/18/18 01/18/18 01/18/18 01:12 11:15 11:15 WBC RBC Hgb Cancelled 6.2 L* D Hct MCV MCH MCHC RDW Plt Count MPV Prelim Diff (Auto) Neut % (Auto) Lymph % (Auto) [place] % (Auto) Eos % (Auto) Baso % (Auto) Neut # (Auto) Lymph # (Auto) [place] # (Auto) Eos # (Auto) Baso # (Auto) WBC Differential Differential Comment Platelet Estimate Platelet Morphology PT 11.4 INR 1.1 Sodium Potassium Chloride Carbon Dioxide Anion Gap BUN Creatinine Estimated GFR Random Glucose Lactic Acid Calcium Total Bilirubin AST ALT Alkaline Phosphatase Total Protein Albumin Urine Color Urine Clarity Urine pH Ur Specific [place] Urine Protein Urine Glucose (UA) Urine Ketones Urine Occult Blood Urine Nitrate Urine Bilirubin Urine Urobilinogen Ur Leukocyte Esterase Urine RBC Urine WBC Ur Squamous Epith Cells Urine Bacteria Urine Mucus Micro UA Comment Urine Culture Comments Blood Type Antibody Screen MTS Gel Crossmatch Bld Prod Order Comment - Imaging Impressions Chest X-Ray 01/17/18 18:03 CONCLUSION: No active disease. Caprini VTE Risk Assessment Caprini VTE Risk Assessment: No/Low Risk (score <= 1) Caprini Risk Assessment Model: Point Value = 1 Point Value = 2 Point Value = 3 Point Value = 5 Age 41-60 Minor surgery BMI > 25 kg/m2 Swollen legs Varicose veins or History of unexplained or recurrent spontaneous Oral contraceptives or hormone replacement Sepsis (< 1 month) Serious lung disease, including pneumonia (< 1 month) Abnormal pulmonary function Acute myocardial infarction Congestive heart failure (< 1 month) History of inflammatory bowel disease Medical patient at bed rest Age 61-74 Arthroscopic surgery Major open surgery (> 45 min) Laparoscopic surgery (> 45 min) Malignancy Confined to bed (> 72 hours) Immobilizing plaster cast Central venous access Age >= 75 History of VTE Family history of VTE Factor V Leiden Prothrombin [id number] Lupus anticoagulant Anticardiolipin antibodies Elevated serum homocysteine Heparin-induced thrombocytopenia Other congenital or acquired thrombophilia Stroke (< 1 month) Elective arthroplasty Hip, pelvis, or leg fracture Acute spinal cord injury (< 1 month) Prophylaxis Regimen: Total Risk Factor Score Risk Level Prophylaxis Regimen 0-1 Low Early ambulation 2 Moderate Order ONE of the following: *Sequential Compression Device (SCD) *Heparin 5000 units SQ BID 3-4 Higher Order ONE of the following medications: *Heparin 5000 units SQ TID *Enoxaparin/Lovenox 40 mg SQ daily (WT < 150 kg, CrCl > 30 mL/min) *Enoxaparin/Lovenox 30 mg SQ daily (WT < 150 kg, CrCl > 10-29 mL/min) *Enoxaparin/Lovenox 30 mg SQ BID (WT < 150 kg, CrCl > 30 mL/min) AND/OR *Sequential Compression Device (SCD) 5 or more Highest Order ONE of the following medications: *Heparin 5000 units SQ TID (Preferred with Epidurals) *Enoxaparin/Lovenox 40 mg SQ daily (WT < 150 kg, CrCl > 30 mL/min) *Enoxaparin/Lovenox 30 mg SQ daily (WT < 150 kg, CrCl > 10-29 mL/min) *Enoxaparin/Lovenox 30 mg SQ BID (WT < 150 kg, CrCl > 30 mL/min) AND *Sequential Compression Device (SCD) Attestation Collaborating MD Comments: Patient with long standing anemia, menorrhagia, and fibroids known to our service with multiple dialer evaluations in the past. Recommendations for care are unchanged with outpatient work up necessary before any discussions regarding surgical intervention with may include hysterectomy. Patient was fully worked up in the past and was scheduled for surgery last year. Due to tobacco use, oral contraception is not recommended at this time and Lysteda 650mg was prescribed. Dr Conner is the dialer physician color control operator for outpatient follow up.
--- NOTE | 2018-01-18 17:36 | P.PN ---
Subjective Interval history: Patient is tearful today, discouraged about her situation and her inability to resolve the issue as an outpatient. She is currently receiving blood transfusions but does not feel better yet. Physical Exam Vital signs: Vital Signs 01/17/18 18:01 01/17/18 23:15 01/18/18 01:00 Temperature 101.2 F H 100.4 F H 98.9 F Pulse Rate 111 H 103 H 102 H Respiratory Rate 20 20 18 Blood Pressure 147/73 H 138/67 131/63 Pulse Oximetry 100 99 100 01/18/18 01:33 01/18/18 01:57 01/18/18 02:21 Temperature 98.4 F 98.4 F 99.3 F Pulse Rate 90 99 H 94 H Respiratory Rate 18 18 18 Blood Pressure 130/88 130/58 L 108/60 Pulse Oximetry 100 98 01/18/18 02:52 01/18/18 03:13 01/18/18 04:00 Temperature 99.3 F 99.2 F 97.3 F L Pulse Rate 92 H 104 H 84 Respiratory Rate 18 18 18 Blood Pressure 115/58 L 109/53 L 110/55 L Pulse Oximetry 98 98 98 01/18/18 04:45 01/18/18 08:00 01/18/18 11:12 Temperature 97.3 F L 99.9 F H Pulse Rate 77 98 H 102 H Respiratory Rate 16 18 Blood Pressure 107/57 L 123/61 Pulse Oximetry 99 100 01/18/18 12:00 01/18/18 13:11 01/18/18 13:36 Temperature 101.1 F H 102.0 F H Pulse Rate 106 H 98 H Respiratory Rate 16 20 Blood Pressure 121/56 L 120/67 123/64 Pulse Oximetry 99 97 01/18/18 13:39 01/18/18 16:00 01/18/18 16:15 Temperature 100.1 F H 98.6 F 98.8 F Pulse Rate 97 H 98 H 84 Respiratory Rate 20 22 20 Blood Pressure 115/65 110/58 L Pulse Oximetry 98 100 100 01/18/18 16:42 Temperature 97.2 F L Pulse Rate 81 Respiratory Rate 18 Blood Pressure 116/66 Pulse Oximetry Intake & Output 01/17/18 01/18/18 01/18/18 18:59 06:59 18:59 Intake Total 1800 / 1800 400 / 400 Balance 1800 / 1800 400 / 400 Weight 65.771 kg 63.4 kg Intake: IV 1000 / 1000 Intake (Blood Product) Amt 0 / 0 400 / 400 Rbc As-3 Leukoreduced Unit 0 / 0 [id number] Rbc As-3 Leukoreduced Unit 0 / 0 [id number] Rbc As-3 Leukoreduced Unit 400 / 400 [id number] Rbc As-3 Leukoreduced Unit 0 / 0 [id number] Mass Transfusion Protocol 800 / 800 Other: Date of Last Bowel Movement 01/17/18 Weight On Admission 63.4 kg Narrative: GENERAL: AAOx3, no acute distress, tearful SKIN: Warm and dry. No rashes HEAD: Atruamtic, normocephalic. EYES: No scleral icterus. No injection or drainage. ENT: Moist mucous membranes, patent nares, no erythema of oropharynx. NECK: Supple, trachea midline. No JVD or lymphadenopathy. Normal thyroid. CARDIOVASCULAR: Tachycardia, 3/6 murmur RESPIRATORY: Breath sounds clear equal bilaterally. No crackles or wheezes. No accessory muscle use. GASTROINTESTINAL: Abdomen soft, non-tender, nondistended, normal active bowel sounds MUSCULOSKELETAL: No cyanosis, or edema. NEURO: CN II-XII grossly intact, no focal deficits, no slurring of speech Results - Labs CBC & Chem 7: 01/18/18 11:15 01/17/18 23:03 Laboratory Results - last 24 hr 01/17/18 01/17/18 01/17/18 23:03 23:03 23:03 WBC 14.9 H RBC 2.10 L Hgb 3.2 L* Hct 11.7 L* MCV 55.9 L MCH 15.3 L MCHC 27.4 L RDW 21.5 H Plt Count 659 H MPV 7.0 Prelim Diff (Auto) Slide review pending Neut % (Auto) 79.8 H Lymph % (Auto) 13.2 [place] % (Auto) 5.8 Eos % (Auto) 0.9 Baso % (Auto) 0.3 Neut # (Auto) 11.9 H Lymph # (Auto) 2.0 [place] # (Auto) 0.9 Eos # (Auto) 0.1 Baso # (Auto) 0.1 WBC Differential . Differential Comment . Platelet Estimate High H Platelet Morphology Enlarged H PT INR Sodium 131 L Potassium 3.6 Chloride 100 Carbon Dioxide 23.6 Anion Gap 7 BUN 3 L Creatinine 0.60 Estimated GFR Greater than 89 Random Glucose 86 Lactic Acid 1.4 Calcium 8.4 L Total Bilirubin 0.6 AST 14 L ALT 11 Alkaline Phosphatase 70 Total Protein 7.8 Albumin 3.2 L Urine Color Urine Clarity Urine pH Ur Specific [place] Urine Protein Urine Glucose (UA) Urine Ketones Urine Occult Blood Urine Nitrate Urine Bilirubin Urine Urobilinogen Ur Leukocyte Esterase Urine RBC Urine WBC Ur Squamous Epith Cells Urine Bacteria Urine Mucus Micro UA Comment Urine Culture Comments Blood Type Antibody Screen MTS Gel Crossmatch Bld Prod Order Comment 01/17/18 01/17/18 01/17/18 23:03 23:30 23:59 WBC RBC Hgb Hct MCV MCH MCHC RDW Plt Count MPV Prelim Diff (Auto) Neut % (Auto) Lymph % (Auto) [place] % (Auto) Eos % (Auto) Baso % (Auto) Neut # (Auto) Lymph # (Auto) [place] # (Auto) Eos # (Auto) Baso # (Auto) WBC Differential Differential Comment Platelet Estimate Platelet Morphology PT INR Sodium Potassium Chloride Carbon Dioxide Anion Gap BUN Creatinine Estimated GFR Random Glucose Lactic Acid Calcium Total Bilirubin AST ALT Alkaline Phosphatase Total Protein Albumin Urine Color Straw Urine Clarity Clear Urine pH 7.0 Ur Specific [place] 1.005 Urine Protein Negative Urine Glucose (UA) Negative Urine Ketones 20 Urine Occult Blood Moderate H Urine Nitrate Negative Urine Bilirubin Negative Urine Urobilinogen Less than 2 Ur Leukocyte Esterase Small H Urine RBC 1 Urine WBC 3 Ur Squamous Epith Cells 2 Urine Bacteria Rare H Urine Mucus Few H Micro UA Comment Culture not ind Urine Culture Comments Culture not ind Blood Type A Positive Antibody Screen Positive H MTS Gel Crossmatch See Detail See Detail Bld Prod Order Comment Cancelled 01/18/18 01/18/18 01/18/18 01:12 11:15 11:15 WBC RBC Hgb Cancelled 6.2 L* D Hct MCV MCH MCHC RDW Plt Count MPV Prelim Diff (Auto) Neut % (Auto) Lymph % (Auto) [place] % (Auto) Eos % (Auto) Baso % (Auto) Neut # (Auto) Lymph # (Auto) [place] # (Auto) Eos # (Auto) Baso # (Auto) WBC Differential Differential Comment Platelet Estimate Platelet Morphology PT 11.4 INR 1.1 Sodium Potassium Chloride Carbon Dioxide Anion Gap BUN Creatinine Estimated GFR Random Glucose Lactic Acid Calcium Total Bilirubin AST ALT Alkaline Phosphatase Total Protein Albumin Urine Color Urine Clarity Urine pH Ur Specific [place] Urine Protein Urine Glucose (UA) Urine Ketones Urine Occult Blood Urine Nitrate Urine Bilirubin Urine Urobilinogen Ur Leukocyte Esterase Urine RBC Urine WBC Ur Squamous Epith Cells Urine Bacteria Urine Mucus Micro UA Comment Urine Culture Comments Blood Type Antibody Screen MTS Gel Crossmatch Bld Prod Order Comment Microbiology 01/17/18 23:08 Blood - Peripheral Aerobic Blood Culture - Preliminary No growth in 1 day 01/17/18 23:08 Blood - Peripheral Anaerobic Blood Culture - Preliminary No growth in 1 day 01/17/18 23:03 Blood - Peripheral Aerobic Blood Culture - Preliminary No growth in 1 day 01/17/18 23:03 Blood - Peripheral Anaerobic Blood Culture - Preliminary No growth in 1 day 01/17/18 23:08 Nasal Wash Influenza Types A,B Antigen - Final Negative for FLU A and B antigen Infection due to influenza A or B cannot be ruled out since the antigen present in the sample may be below the detection limit of the test. - Imaging Impressions Chest X-Ray 01/17/18 18:03 CONCLUSION: No active disease. Assessment and Plan - Plan Severe anemia Secondary to menorrhagia from chronic fibroids Patient admitted with hemoglobin of 3.2, currently transfusing 4 units of packed red blood cells Continue to monitor CBC closely Uterine fibroids Source of excessive bleeding Unable to obtain hysterectomy as outpatient due to insurance issues Gynecology recommends against OCP due to smoking history Gynecology consultant electronics recommends tranexamic to 650 mg tablets every 8 hours for 5 days during heaviest parts of menses Outpatient follow-up with Dr. Conner for hysterectomy Appreciate gynecology consult Hypernatremia Sodium 131 on admission, hypovolemic, will follow with a.m. labs
[2018-01-18] MEDS: Temazepam 15 MG Capsule PO PRN (22:07)
[2018-01-19] MEDS: Sod Chloride 0.9% Inj 1,000 ML IV.CONT SCH ×2 (03:40→18:15)
[2018-01-19 09:43] LABS: Baso # (Auto) 0.1 th/mm3 (0.0-0.2); Baso % (Auto) 0.4 % (0.0-2.0); Eos # (Auto) 0.3 th/mm3 (0.0-0.4); Eos % (Auto) 1.5 % (0.0-4.0); Hematocrit 29.6 % (35.0-46.0); Hemoglobin 9.3 gm/dL (11.6-15.3); Mean Corpuscular HGB Conc 31.2 % (32.0-36.0); Mean Corpuscular Hemoglobin 21.5 pg (27.0-34.0); Mean Platelet Volume 7.2 fL (7.0-11.0); Mono # (Auto) 1.6 th/mm3 (0.0-0.9); Mono % (Auto) 7.5 % (0.0-8.0); Neut # (Auto) 17.9 th/mm3 (1.8-7.7); Neut % (Auto) 81.6 % (16.0-70.0); Platelet Count 505 th/mm3 (150-450); Red Cell Distribution Width 31.5 % (11.6-17.2); White Blood Count 21.9 th/mm3 (4.0-11.0)
[2018-01-19 10:16] LABS: Alanine Aminotransferase 10 U/L (10-53); Albumin 2.5 g/dL (3.4-5.0); Anion Gap 9 meq/L (5-15); Aspartate Aminotransferase 16 U/L (15-37); Blood Urea Nitrogen 3 mg/dL (7-18); Calcium 8.1 mg/dL (8.5-10.1); Carbon Dioxide 23.4 meq/L (21.0-32.0); Chloride 107 meq/L (98-107); Glomerular Filtration Rate Greater Than 89 mL/min (>89); Glucose,Random 77 mg/dL (74-106); Potassium 3.4 meq/L (3.5-5.1); Sodium 139 meq/L (136-145)
[2018-01-19 10:20] LABS: Alkaline Phosphatase 77 U/L (45-117); Total Protein 7.1 g/dL (6.4-8.2)
[2018-01-19 10:31] LABS: Eosinophils 1 % (0-4); Lymphocytes 1 % (9-44); Monocytes 7 % (0-8); Tallied Nucleated RBC 1 (0-0)
[2018-01-19 10:32] LABS: Acanthocytes Occ; Dimorphic RBC Present; Ovalocytes 1+; Platelet Morphology Normal (Normal); Tear Drop Cells 1+
[2018-01-19] MEDS: Butalbital/APAP/Caff 50/325/40 MG Tablet PO PRN ×2 (12:11→21:08)
[2018-01-19] MEDS ORDERED: MethylPREDNISolone Sod Succinate Inj 125 MG/2 ML Vial IV.PUSH ONE (14:49)
--- NOTE | 2018-01-19 15:57 | P.PN ---
Subjective Interval history: Patient is glad that her hemoglobin is 8.8 today. She however feels miserable, body aches, low-grade fevers, headaches. By her history of these headaches started with blood transfusions. Physical Exam Vital signs: Vital Signs 01/18/18 16:00 01/18/18 16:15 01/18/18 16:42 Temperature 100.7 F H 98.8 F 97.2 F L Pulse Rate 101 H 84 81 Respiratory Rate 18 20 18 Blood Pressure 107/52 L 110/58 L 116/66 Pulse Oximetry 97 100 01/18/18 18:48 01/18/18 20:00 01/19/18 00:00 Temperature 98.9 F 99.2 F 99 F Pulse Rate 90 91 H 98 H Respiratory Rate 22 18 18 Blood Pressure 121/65 125/64 119/60 Pulse Oximetry 100 100 97 01/19/18 04:00 01/19/18 08:00 01/19/18 12:00 Temperature 97.7 F 98.0 F 99.1 F Pulse Rate 82 86 91 H Respiratory Rate 18 20 20 Blood Pressure 110/68 134/80 136/85 Pulse Oximetry 96 100 98 Intake & Output 01/18/18 01/19/18 01/19/18 18:59 06:59 18:59 Intake Total 1450 / 1450 1720 / 1720 Output Total 800 / 800 300 / 300 Balance 650 / 650 1420 / 1420 Weight 65 kg Intake: IV 50 / 50 1000 / 1000 NS Inj 1,000 ML @ 100 mls/hr IV 1000 / 1000 .CONT .Q10H COOKIE Rx#:[id number] NS Inj 250 ML @ 15 mls/hr IV. 50 / 50 SIG ONCE COOKIE Rx#:[id number] Oral 600 / 600 720 / 720 Intake (Blood Product) Amt 800 / 800 Rbc As-3 Leukoreduced Unit 400 / 400 [id number] Rbc As-3 Leukoreduced Unit 400 / 400 [id number] Output: Urine 800 / 800 300 / 300 Other: # Bowel Movements 0 0 Narrative: GENERAL: AAOx3, uncomfortable, headache SKIN: Warm and dry. No rashes HEAD: Atruamtic, normocephalic. EYES: No scleral icterus. No injection or drainage. ENT: Moist mucous membranes, patent nares, no erythema of oropharynx. NECK: Supple, trachea midline. No JVD or lymphadenopathy. Normal thyroid. CARDIOVASCULAR: Tachycardia, 3/6 murmur RESPIRATORY: Breath sounds clear equal bilaterally. No crackles or wheezes. No accessory muscle use. GASTROINTESTINAL: Abdomen soft, non-tender, nondistended, normal active bowel sounds MUSCULOSKELETAL: No cyanosis, or edema. NEURO: CN II-XII grossly intact, no focal deficits, no slurring of speech Results - Labs CBC & Chem 7: 01/19/18 13:50 01/19/18 08:10 Laboratory Results - last 24 hr 01/17/18 01/18/18 01/19/18 23:30 22:25 08:10 WBC 21.9 H RBC 4.30 Hgb 8.8 L D 9.3 L Hct 29.6 L MCV 69.0 L D MCH 21.5 L MCHC 31.2 L RDW 31.5 H D Plt Count 505 H MPV 7.2 Prelim Diff (Auto) Slide review pending Neut % (Auto) 81.6 H Lymph % (Auto) 9.0 [place] % (Auto) 7.5 Eos % (Auto) 1.5 Baso % (Auto) 0.4 Neut # (Auto) 17.9 H Lymph # (Auto) 2.0 [place] # (Auto) 1.6 H Eos # (Auto) 0.3 Baso # (Auto) 0.1 WBC Differential Manual diff final Seg Neuts % (Manual) 87 H Band Neuts % (Manual) 4 Lymphocytes % (Manual) 1 L Monocytes % (Manual) 7 Eosinophils % (Manual) 1 Abs Neuts (Manual) 19.9 H Nucleated RBCs/100 WBC 1 H Differential Comment . Platelet Estimate High H Platelet Morphology Normal Dimorphic RBCs Present H Tear Drop Cells 1+ H Ovalocytes 1+ H Acanthocytes (Spur) Occ H Sodium Potassium Chloride Carbon Dioxide Anion Gap BUN Creatinine Estimated GFR Random Glucose Calcium Total Bilirubin AST ALT Alkaline Phosphatase Total Protein Albumin Blood Type A Positive Antibody Screen Positive H MTS Gel Crossmatch See Detail Bld Prod Order Comment 01/19/18 01/19/18 08:10 13:50 WBC RBC Hgb 8.9 L Hct MCV MCH MCHC RDW Plt Count MPV Prelim Diff (Auto) Neut % (Auto) Lymph % (Auto) [place] % (Auto) Eos % (Auto) Baso % (Auto) Neut # (Auto) Lymph # (Auto) [place] # (Auto) Eos # (Auto) Baso # (Auto) WBC Differential Seg Neuts % (Manual) Band Neuts % (Manual) Lymphocytes % (Manual) Monocytes % (Manual) Eosinophils % (Manual) Abs Neuts (Manual) Nucleated RBCs/100 WBC Differential Comment Platelet Estimate Platelet Morphology Dimorphic RBCs Tear Drop Cells Ovalocytes Acanthocytes (Spur) Sodium 139 Potassium 3.4 L Chloride 107 Carbon Dioxide 23.4 Anion Gap 9 BUN 3 L Creatinine 0.52 Estimated GFR Greater than 89 Random Glucose 77 Calcium 8.1 L Total Bilirubin 0.9 AST 16 ALT 10 Alkaline Phosphatase 77 Total Protein 7.1 D Albumin 2.5 L D Blood Type Antibody Screen MTS Gel Crossmatch Bld Prod Order Comment Microbiology 01/17/18 23:08 Blood - Peripheral Aerobic Blood Culture - Preliminary No growth in 2 days 01/17/18 23:08 Blood - Peripheral Anaerobic Blood Culture - Preliminary No growth in 2 days 01/17/18 23:03 Blood - Peripheral Aerobic Blood Culture - Preliminary No growth in 2 days 01/17/18 23:03 Blood - Peripheral Anaerobic Blood Culture - Preliminary No growth in 2 days Assessment and Plan - Plan Severe anemia Secondary to menorrhagia from chronic fibroids Patient admitted with hemoglobin of 3.2, currently transfusing 4 units of packed red blood cells Continue to monitor CBC closely Transfusion reaction Delayed onset of fevers, headache, arthralgia, leukocytosis Solu-Medrol 125 mg IV 1 We will screen urine and check chest x-ray to rule out other causes Follow CBC in a.m. Uterine fibroids Source of excessive bleeding Unable to obtain hysterectomy as outpatient due to insurance issues Gynecology recommends against OCP due to smoking history Gynecology job service consultant recommends tranexamic to 650 mg tablets every 8 hours for 5 days during heaviest parts of menses Outpatient follow-up with Dr. Conner for hysterectomy Appreciate gynecology consult Hypernatremia Resolved
--- NOTE | 2018-01-19 16:30 | XR ---
EXAM DATE: 01/19/2018 4:26 PM EDT AGE/SEX: 37 years / Female INDICATIONS: Cough, chest congestion for 2 days CLINICAL DATA: This is the patient's initial encounter. Patient reports that signs and symptoms have been present for 2 days and indicates a pain score of 0/10. MEDICAL/SURGICAL HISTORY: Anemia. None. COMPARISON: [facility] [place] [facility] [place] 2[place] PA&LAT, 01/17/2018. . FINDINGS: A single AP view of the chest demonstrates the lungs to be symmetrically aerated without evidence of mass, infiltrate or effusion. The cardiomediastinal contours demonstrate the heart. The upper limits of normal in size. Osseous structures are intact. CONCLUSION: No acute cardiopulmonary findings identified. Electronically signed by: Benny Bradley MD 01/19/2018 4:28 PM EDT
[2018-01-19] MEDS: Temazepam 15 MG Capsule PO PRN (21:09)
[2018-01-20] MEDS: Sod Chloride 0.9% Inj 1,000 ML IV.CONT SCH ×2 (04:50→15:23)
[2018-01-20] MEDS: Butalbital/APAP/Caff 50/325/40 MG Tablet PO PRN (04:50)
[2018-01-20 09:39] LABS: Hematocrit 30.9 % (35.0-46.0); Hemoglobin 9.5 gm/dL (11.6-15.3); Mean Corpuscular Hemoglobin 21.5 pg (27.0-34.0); Mean Platelet Volume 8.4 fL (7.0-11.0); Platelet Count 558 th/mm3 (150-450); Red Blood Count 4.42 mil/mm3 (4.00-5.30); Red Cell Distribution Width 31.9 % (11.6-17.2); White Blood Count 19.6 th/mm3 (4.0-11.0)
[2018-01-20 09:42] LABS: Mean Corpuscular HGB Conc 30.7 % (32.0-36.0)
[2018-01-20 10:07] LABS: Anion Gap 12 meq/L (5-15); Blood Urea Nitrogen 4 mg/dL (7-18); Calcium 8.6 mg/dL (8.5-10.1); Carbon Dioxide 20.2 meq/L (21.0-32.0); Chloride 107 meq/L (98-107); Glomerular Filtration Rate Greater Than 89 mL/min (>89); Glucose,Random 85 mg/dL (74-106); Potassium 3.5 meq/L (3.5-5.1); Sodium 139 meq/L (136-145)
[2018-01-20] MEDS ORDERED: Benzonatate 100 MG Capsule PO PRN (15:00)
--- NOTE | 2018-01-20 16:28 | P.PN ---
Subjective Interval history: Patient states that her headache and arthralgias have improved following a single steroid dose. She had a transfusion reaction. Now remains afebrile. She has unreliable follow-up as an outpatient due to being dropped from Medicaid without warning prior to a hysterectomy. She presented to us with a hemoglobin of 3.2 Physical Exam Vital signs: Vital Signs 01/19/18 20:00 01/20/18 00:00 01/20/18 04:00 Temperature 99.3 F 97.3 F L 97.9 F Pulse Rate 96 H 90 92 H Respiratory Rate 20 18 18 Blood Pressure 147/66 H 129/61 128/74 Pulse Oximetry 98 99 01/20/18 08:00 01/20/18 12:00 Temperature 97.1 F L 98.0 F Pulse Rate 90 85 Respiratory Rate 18 18 Blood Pressure 126/74 121/78 Pulse Oximetry 100 99 Intake & Output 01/19/18 01/20/18 01/20/18 18:59 06:59 18:59 Intake Total 1480 / 1480 1979 / 1979 1000 / 1000 Output Total 1550 / 1550 Balance 1480 / 1480 430 / 430 1000 / 1000 Weight 65.7 kg Intake: IV 1000 / 1000 1000 / 1000 1000 / 1000 NS Inj 1,000 ML @ 100 mls/hr IV 1000 / 1000 1000 / 1000 1000 / 1000 .CONT .Q10H COOKIE Rx#:[id number] Oral 480 / 480 980 / 980 Output: Urine 1550 / 1550 Other: # Voids 6 Date of Last Bowel Movement 01/19/18 # Bowel Movements 0 1 Narrative: GENERAL: AAOx3, no acute distress SKIN: Warm and dry. No rashes HEAD: Atruamtic, normocephalic. EYES: No scleral icterus. No injection or drainage. ENT: Moist mucous membranes, patent nares, no erythema of oropharynx. NECK: Supple, trachea midline. No JVD or lymphadenopathy. Normal thyroid. CARDIOVASCULAR: Tachycardia, 3/6 murmur RESPIRATORY: Breath sounds clear equal bilaterally. No crackles or wheezes. No accessory muscle use. GASTROINTESTINAL: Abdomen soft, non-tender, nondistended, normal active bowel sounds MUSCULOSKELETAL: No cyanosis, or edema. NEURO: CN II-XII grossly intact, no focal deficits, no slurring of speech Results - Labs CBC & Chem 7: 01/20/18 07:51 01/20/18 07:51 Laboratory Results - last 24 hr 01/19/18 01/20/18 01/20/18 22:59 07:51 07:51 WBC 19.6 H RBC 4.42 Hgb 9.3 L 9.5 L Hct 30.9 L MCV 70.0 L MCH 21.5 L MCHC 30.7 L RDW 31.9 H Plt Count 558 H MPV 8.4 Sodium 139 Potassium 3.5 Chloride 107 Carbon Dioxide 20.2 L Anion Gap 12 BUN 4 L Creatinine 0.46 L Estimated GFR Greater than 89 Random Glucose 85 Calcium 8.6 Microbiology 01/17/18 23:08 Blood - Peripheral Aerobic Blood Culture - Preliminary No growth in 3 days 01/17/18 23:08 Blood - Peripheral Anaerobic Blood Culture - Preliminary No growth in 3 days 01/17/18 23:03 Blood - Peripheral Aerobic Blood Culture - Preliminary No growth in 3 days 01/17/18 23:03 Blood - Peripheral Anaerobic Blood Culture - Preliminary No growth in 3 days - Imaging Impressions Chest X-Ray 01/19/18 00:00 CONCLUSION: No acute cardiopulmonary findings identified. Assessment and Plan - Plan Severe anemia Secondary to menorrhagia from chronic fibroids Patient admitted with hemoglobin of 3.2, currently transfusing 4 units of packed red blood cells Hemoglobin appears stable Uterine fibroids Source of excessive bleeding Unable to obtain hysterectomy as outpatient due to insurance issues Gynecology recommends against OCP due to smoking history Gynecology job service consultant recommends tranexamic to 650 mg tablets every 8 hours for 5 days during heaviest parts of menses Outpatient follow-up with Dr. Conner for hysterectomy expected, but patient is uninsured Request placed to interventional radiology to evaluate patient for coil procedure Pelvic ultrasound for updated fibroid size will be evaluated prior to deciding about coil procedure Appreciate interventional radiology consult Transfusion reaction Mostly resolved following single dose of Solu-Medrol 125 IV Give prednisone po and plan for taper Dosepak when discharged Monitor for fevers Hypernatremia Resolved
[2018-01-20] MEDS: Temazepam 15 MG Capsule PO PRN (23:55)
[2018-01-21] MEDS: Sod Chloride 0.9% Inj 1,000 ML IV.CONT SCH ×3 (05:42→23:40)
--- NOTE | 2018-01-21 09:36 | US ---
EXAM DATE: 01/21/2018 9:22 AM EDT AGE/SEX: 37 years / Female INDICATIONS: Bleeding. CLINICAL DATA: This is the patient's initial encounter. Patient reports that signs and symptoms have been present for > 1 year and indicates a pain score of 0/10. MEDICAL/SURGICAL HISTORY: Anemia. Uterine fibroids. Tubal ligation. COMPARISON: [facility] – [place]ELVIS [place]AST, 09/11/2016. . MEASUREMENTS: Uterus:__14.2 x 10.3 x 9.1 cm Endometrial Stripe:__8 mm Right Ovary:__ 3.7 x 1.9 x 2.2 cm Left Ovary:__ 5.0 x 3.4 x 2.4 cm FINDINGS: Uterus: Enlarged, heterogeneous fibroid uterus with dominant fibroid in the upper body and fundus me asuring close to 8 cm. Areas of internal calcification. Endometrial stripe is displaced. Endometrial Stripe: The endometrial stripe displays homogeneous echotexture. Right Ovary: Ovary contains no mass. Follicles are present. Left Ovary: Tiny cyst Fluid: No free fluid. Other: None. CONCLUSION: Heterogeneous fibroid uterus Electronically signed by: Dariel Stark MD 01/21/2018 9:34 AM EDT
[2018-01-21] MEDS ORDERED: fentaNYL Citrate Inj 250 MCG/5 ML Ampul ONE (09:52)
[2018-01-21] MEDS ORDERED: ceFAZolin 2 GM Premix Inj 2 GM/50 ML PIGGYBACK IV.SIG ONE (09:52)
[2018-01-21] MEDS ORDERED: Ketorolac Inj 30 MG/ML (IVP) Vial ONE (09:52)
[2018-01-21] MEDS ORDERED: Gelatin 12 MM/7 MM Topical Foam I-ARTERIAL ONE (11:00)
[2018-01-21] MEDS ORDERED: Naloxone Inj 0.4 MG/ML Vial IV.PUSH PRN (13:05)
[2018-01-21] MEDS ORDERED: HYDROmorphone PCA Inj 6 MG/30 ML PCA.VIAL PCA PRN (13:05)
[2018-01-21] MEDS ORDERED: Ketorolac Inj 30 MG/ML (IVP) Vial IV.PUSH PRN (13:09)
[2018-01-21] MEDS ORDERED: Acetaminophen 325 MG Tablet PO PRN (13:13)
[2018-01-21] MEDS ORDERED: Ketorolac 10 MG Tablet PO PRN (13:13)
--- NOTE | 2018-01-21 13:35 | IR ---
EXAM DATE: 01/21/2018 12:18 PM EDT AGE/SEX: 37 years / Female INDICATIONS: Patient with history of chronic fibroids in need of uterine artery embolization. CLINICAL DATA: This is the patient's initial encounter. Patient reports that signs and symptoms have been present for 1 week and indicates a pain score of 0/10. MEDICAL/SURGICAL HISTORY: Anemia. Uterine fibroids, Menorrhagia Tubal ligation. COMPARISON: No prior exams available for comparison. FLUORO TIME (min): 20.1 IMAGE SERIES: 7 ACCESS SITE: Right femoral artery SEDATION TIME (min): 70 CONTRAST (cc): 85cc Visipaque (iodixanol) MEDICATION(S): 3mg midazolam (Versed) IV 150mcg fentanyl (Sublimaze) IV Prophylactic antibiotics were administered with appropriate pre-procedure timing. Vancomycin within 2 hrs of procedure, Ancef (or alternative) within 1 hr of procedure. DEVICE(S): Bilateral uterine artery Gelfoam 12X7MM Bilateral uterine artery PVA [id number] MICRONS Right common femoral artery Syvek pad . . PROCEDURE: 1. Ultrasound-guided puncture of the right common femoral artery. 2. Left internal iliac artery arteriogram. 3. Left uterine artery arteriogram. 4. Embolization of the left uterine artery. 5. Right internal iliac artery arteriogram. 6. Right uterine artery arteriogram. 7. Embolization of the right uterine artery. 8. Conscious sedation with continuous EKG and oximetry monitoring. The risks, benefits and alternatives to the procedure were explained and verbal and written consent w as obtained. The site was prepped in sterile fashion. Full sterile technique was used, including ca p, mask, sterile gloves and gown and a large sterile sheet. Hand hygiene and 2% chlorhexidine and/or betadine/alcohol prep was utilized per protocol for cutaneous antisepsis. Sterile gel and sterile p robe cover were utilized for ultrasound guidance. The skin and subcutaneous tissues were infiltrated with local anesthetic solution. With ultrasound and fluoroscopic guidance the right femoral artery was punctured. An Omni Flush cath eter was placed over aortic bifurcation into the left internal iliac artery where imaging was perform ed to identify the uterine artery. The uterine artery was subsequent catheterized and angiography wa s performed demonstrating multiple feeding vessels supplying the uterine fibroids. Embolization was performed using the prescribed size of polyvinyl alcohol and Gelfoam slurry to complete stasis. Foll owup angiography from the internal iliac vessel demonstrates complete stasis and no antegrade flow wi thin the left uterine artery. An Omni Flush catheter was then used to select the ipsilateral right internal iliac artery where imag ing was performed to identify the uterine artery. The uterine artery was subsequently catheterized a nd angiography was performed demonstrating multiple feeding vessels supplying the uterine fibroids. Embolization was performed using the prescribed dose of polyvinyl alcohol and Gelfoam slurry to compl ete stasis. Followup angiography from the internal iliac vessel demonstrates complete stasis and no antegrade flow within the left uterine artery. Conscious sedation was performed with the prescribed dosages and duration as above in the presence of an independent trained radiology nurse to assist in the monitoring of the patient. EKG and oximetry remained stable throughout the procedure. The patient tolerated the procedure well and there were n o complications. The patient was sent to post anesthesia recovery in stable condition. CONCLUSION: 1. Uncomplicated uterine artery embolization as above. Electronically signed by: Dariel Stark MD 01/21/2018 1:34 PM EDT
[2018-01-21] MEDS ORDERED: Ketorolac 10 MG Tablet PO SCH (14:00)
[2018-01-21] MEDS ORDERED: Ketorolac Inj 30 MG/ML (IVP) Vial IV.PUSH SCH (14:00)
[2018-01-21] MEDS ORDERED: levoFLOXacin 500 MG Tablet PO SCH (15:00)
[2018-01-21] MEDS ORDERED: Levofloxacin 500 mg Premix Inj 500 MG/100 ML PIGGYBACK IV.SIG PRN (15:00)
--- NOTE | 2018-01-21 16:03 | P.PN ---
Subjective Interval history: Patient underwent uterine artery embolization for treatment of 8 cm fibroid today. She tolerated the procedure well. She is resting comfortably postop. She is grateful to radiology for assisting her. Physical Exam Vital signs: Vital Signs 01/20/18 16:00 01/20/18 19:48 01/20/18 20:00 Temperature 98.3 F 97.9 F Pulse Rate 72 72 55 L Respiratory Rate 18 18 Blood Pressure 141/86 H 113/78 Pulse Oximetry 99 98 01/21/18 00:00 01/21/18 04:00 01/21/18 08:00 Temperature 98 F 97.6 F 98.0 F Pulse Rate 62 61 62 Respiratory Rate 18 18 20 Blood Pressure 142/88 H 142/82 H 149/80 H Pulse Oximetry 99 98 98 01/21/18 12:00 01/21/18 12:15 01/21/18 13:00 Temperature 98.6 F Pulse Rate 52 L 66 58 L Respiratory Rate 20 20 Blood Pressure 155/91 H 144/91 H 128/77 Pulse Oximetry 98 Intake & Output 01/20/18 01/21/18 01/21/18 18:59 06:59 18:59 Intake Total 1480 / 1480 340 / 340 50 / 50 Balance 1480 / 1480 340 / 340 50 / 50 Intake: IV 1000 / 1000 50 / 50 NS Inj 1,000 ML @ 100 mls/hr IV 1000 / 1000 .CONT .Q10H COOKIE Rx#:[id number] Ancef 2 GM Premix Inj 2 gm In 50 / 50 50 ml @ 0 mls/hr IV.SIG .STK- MED ONE Rx#:[id number] Oral 480 / 480 340 / 340 Other: # Voids 3 2 # Bowel Movements 2 Narrative: GENERAL: AAOx3, no acute distress SKIN: Warm and dry. No rashes HEAD: Atruamtic, normocephalic. EYES: No scleral icterus. No injection or drainage. ENT: Moist mucous membranes, patent nares, no erythema of oropharynx. NECK: Supple, trachea midline. No JVD or lymphadenopathy. Normal thyroid. CARDIOVASCULAR: Tachycardia, 3/6 murmur RESPIRATORY: Breath sounds clear equal bilaterally. No crackles or wheezes. No accessory muscle use. GASTROINTESTINAL: Abdomen soft, non-tender, nondistended, normal active bowel sounds MUSCULOSKELETAL: No cyanosis, or edema. NEURO: CN II-XII grossly intact, no focal deficits, no slurring of speech Results - Labs CBC & Chem 7: 01/20/18 07:51 01/20/18 07:51 Microbiology 01/17/18 23:08 Blood - Peripheral Aerobic Blood Culture - Preliminary No growth in 4 days 01/17/18 23:08 Blood - Peripheral Anaerobic Blood Culture - Preliminary No growth in 4 days 01/17/18 23:03 Blood - Peripheral Aerobic Blood Culture - Preliminary No growth in 4 days 01/17/18 23:03 Blood - Peripheral Anaerobic Blood Culture - Preliminary No growth in 4 days - Imaging Impressions Embolization, Transcatheter 01/21/18 00:00 CONCLUSION: 1. Uncomplicated uterine artery embolization as above. Pelvis Ultrasound 01/21/18 00:00 CONCLUSION: Heterogeneous fibroid uterus Assessment and Plan - Plan Severe anemia Secondary to menorrhagia from chronic fibroids Patient admitted with hemoglobin of 3.2, currently transfusing 4 units of packed red blood cells Hemoglobin remains stable Uterine fibroids Source of excessive bleeding Unable to obtain hysterectomy as outpatient due to insurance issues Outpatient follow-up with Dr. Conner, but patient is uninsured 8 cm fibroid on pelvic ultrasound Appreciate interventional radiology intervention Transfusion reaction Resolved Continuing prednisone po, consider taper Dosepak when discharged Monitor for fevers DVT prophylaxis Patient is ambulatory, chemoprophylaxis contraindicated due to severe anemia from menometrorrhagia
[2018-01-21] MEDS: Ketorolac 10 MG Tablet PO SCH ×2 (17:12→23:40)
[2018-01-21] MEDS: Ketorolac Inj 30 MG/ML (IVP) Vial IV.PUSH SCH (17:13)
[2018-01-22] MEDS: Ketorolac Inj 30 MG/ML (IVP) Vial IV.PUSH SCH ×2 (01:00→11:25)
[2018-01-22] MEDS: Sod Chloride 0.9% Inj 1,000 ML IV.CONT SCH (02:08)
[2018-01-22 09:29] LABS: Hematocrit 29.1 % (35.0-46.0); Hemoglobin 8.8 gm/dL (11.6-15.3); Mean Corpuscular Hemoglobin 21.1 pg (27.0-34.0); Mean Corpuscular Volume 69.6 fL (80.0-100.0); Mean Platelet Volume 7.3 fL (7.0-11.0); Platelet Count 563 th/mm3 (150-450); Red Blood Count 4.18 mil/mm3 (4.00-5.30); Red Cell Distribution Width 32.9 % (11.6-17.2); White Blood Count 14.2 th/mm3 (4.0-11.0)
[2018-01-22 09:30] LABS: Mean Corpuscular HGB Conc 30.4 % (32.0-36.0)
[2018-01-22 10:01] LABS: Anion Gap 11 meq/L (5-15); Blood Urea Nitrogen 6 mg/dL (7-18); Calcium 8.2 mg/dL (8.5-10.1); Carbon Dioxide 23.1 meq/L (21.0-32.0); Chloride 102 meq/L (98-107); Glomerular Filtration Rate Greater Than 89 mL/min (>89); Glucose,Random 64 mg/dL (74-106); Potassium 3.6 meq/L (3.5-5.1); Sodium 136 meq/L (136-145)
[2018-01-22] MEDS: Ketorolac 10 MG Tablet PO SCH (11:25)
--- NOTE | 2018-01-22 13:24 | P.DS ---
Date of admission: 01/18/18 01:06 Primary care physician: No Primary Care Physician Brief History from admission: 37-year-old female with a history of anemia, fibroids, menorrhagia who presented to ED with a several day history of progressively worsening fatigue, lightheadedness. Found to have hemoglobin of 3.2 on presentation. Denies any dysuria, hematuria. Her period started Wednesday and ended Wednesday. She is currently not having any bleeding. She has heavy periods with clots and sever cramping once a month. She started having her cycles at age 16. She was diagnosed with fibroids and recommended to have a hysterectomy, but has been able to follow up due to insurance issues. She has been admitted multiple times for anemia. In the past she tried control pills and Depo shot , which had little impact on her bleedings. She had 3 previous pregnancies which went to term and delivered by . She had tubal ligation. She is sexually active and uses condoms. No history of STIs. She is currently smoking 3-4 cigarettes per day. DS: Medications - Discharge Medications Prescriptions: hydrocodone-acetaminophen [Cedar] 1 tab PO Q6H PRN #15 tab PRN Reason: Pain 3 to 10 prednisone 5 mg PO DAILY #5 tab DS: Summary Hospital Course: Mrs. Seth is a 37-year-old female. She came in secondary to severe anemia related to menometrorrhagia which was found to be related to a fibroid. Hemoglobin was 3.2 at time of admit, 4 units of packed red blood cells given. She is now status post partial hysterectomy with fibroid removal. Hemoglobin is showing stability. Pain control. No further bleeding. Patient is medically stable and cleared for discharge home today. - Time Spent with Patient Total time spent providing and/or coordinating discharge services: Less than 30 minutes - Quality: VTE Deep Vein Thrombosis/Pulmonary Embolism Present on Admission: No Exam Vital signs: Vital Signs 01/21/18 15:58 01/21/18 16:00 01/21/18 20:00 Temperature 97.7 F 97.4 F L Pulse Rate 62 62 65 Respiratory Rate 18 16 Blood Pressure 149/69 H 154/86 H 132/82 Pulse Oximetry 96 97 99 01/22/18 00:00 01/22/18 03:57 01/22/18 04:00 Temperature 97.9 F 98.6 F Pulse Rate 85 90 79 Respiratory Rate 18 20 Blood Pressure 115/81 133/92 H Pulse Oximetry 97 94 L 01/22/18 08:00 Temperature 98.8 F Pulse Rate 98 H Respiratory Rate 16 Blood Pressure 137/66 Pulse Oximetry 91 L Intake & Output 01/21/18 01/22/18 01/22/18 18:59 06:59 18:59 Intake Total 1050 / 1050 410 / 410 Balance 1050 / 1050 410 / 410 Intake: IV 1050 / 1050 NS Inj 1,000 ML @ 100 mls/hr IV 1000 / 1000 .CONT .Q10H COOKIE Rx#:[id number] Ancef 2 GM Premix Inj 2 gm In 50 / 50 50 ml @ 0 mls/hr IV.SIG .STK- MED ONE Rx#:[id number] Oral 410 / 410 Other: # Voids 1 4 Date of Last Bowel Movement 01/22/18 # Bowel Movements 1 Results Procedures completed during hospitalization: Partial hysterectomy/fibroid removal Labs on day of discharge: Labs from last 24 hours 01/22/18 01/22/18 07:30 07:30 WBC 14.2 H RBC 4.18 Hgb 8.8 L Hct 29.1 L MCV 69.6 L MCH 21.1 L MCHC 30.4 L RDW 32.9 H Plt Count 563 H MPV 7.3 Sodium 136 Potassium 3.6 Chloride 102 Carbon Dioxide 23.1 Anion Gap 11 BUN 6 L Creatinine 0.46 L Estimated GFR Greater than 89 Random Glucose 64 L Calcium 8.2 L - Impressions ITS Impressions Chest X-Ray 01/19/18 00:00 CONCLUSION: No acute cardiopulmonary findings identified. Embolization, Transcatheter 01/21/18 00:00 CONCLUSION: 1. Uncomplicated uterine artery embolization as above. Pelvis Ultrasound 01/21/18 00:00 CONCLUSION: Heterogeneous fibroid uterus Discharge Plan - Discharge Disposition Patient Disposition: Discharge Home - Discharge Condition Condition: Stable - Discharge Order Discharge Orders: Discharge Order (Routine); Ordered 01/22/18 Ordered By: Benny Lopez - Discharge Details Anticipated Discharge Date: 01/22/18 Discharge Comment: October discharge if cleared by Gynecology - Physicians Team Primary Care Provider: Primary Care Physici,No Attending Provider: Benny Lopez Other Providers: Nat Lam MD
[2018-01-25 17:53] VITALS: BP 138/64; PULSE 99; RESP 16; TEMP 98.7
[2018-01-25 18:18] VITALS: O2SAT 92
== END 2018-01-22 15:00 | disposition home or self-care (01) ==
LOC: NEPE 17:48 → NEDA 01-18 01:06 → N04 01-18 02:08
PROVIDERS: ADMIT Hospitalist; ATTEND Hospitalist